=== PATIENT | female | born 1995 | race Caucasian/White ===

== ENCOUNTER 2016-08-26 17:21 | Emergency (ER) | payer MEDICAID ==
[~2016-08-26 17:21] MED LIST: ACET5SOL5 PO; ALBU8I INH; GLUCOMTESTSTRIPS XX; NOVONP2 SQ; NOVORP2 SQ; PNVPAK PO; [UNRECOGNIZED DRUG - CODE] IJ; [UNRECOGNIZED DRUG - CODE] TOP
[2016-08-26 17:23] VITALS: BP 124/71; PULSE 88; RESP 15; TEMP 98.1; O2SAT 97
[2016-08-26] MEDS ORDERED: SODIUM CHLOR 0.9% 1000 ML INJ 1,000 ML IV ONE (19:29)
[2016-08-26] MEDS ORDERED: METOCLOPRAMIDE HCL 10 MG/2 ML VIAL IVP ONE (19:30)
[2016-08-26] MEDS ORDERED: SODIUM CHLORIDE 0.9% FLUSH 5 ML FLUSH IVF PRN (19:30)
[2016-08-26] MEDS ORDERED: diphenhydrAMINE HCL 50 MG/ML VIAL IVP ONE (19:30)
[2016-08-26 19:43] LABS: AUTOMATED NEUTROPHIL # 6.9 TH/MM3 (1.8-7.7); BASOPHIL # 0.1 TH/MM3 (0-0.2); BASOPHIL % 0.6 % (0.0-2.0); EOSINOPHIL % 0.3 % (0.0-4.0); HEMO FLAGS DIFF FINAL; LYMPH % 24.9 % (9.0-44.0); LYMPHOCYTE # 2.5 TH/MM3 (1.0-4.8); MEAN CELL VOLUME 87.2 FL (80.0-100.0); MEAN CORPUSCULAR HEMOGLOBIN 28.9 PG (27.0-34.0); MEAN CORPUSCULAR HGB CONC 33.1 % (32.0-36.0); MONO % 5.1 % (0.0-8.0); NEUT % 69.1 % (16.0-70.0); PLATELET COUNT 255 TH/MM3 (150-450); RED BLOOD COUNT 3.79 MIL/MM3 (4.00-5.30); WHITE BLOOD COUNT 9.9 TH/MM3 (4.0-11.0)
[2016-08-26 19:46] LABS: BACTERIA, URINE RARE /hpf; BLOOD, URINE NEG (NEG); COMMENT (UR) CULTURE INDICATED; CULTURE IF INDICATED CULTURE INDICATED; GLUCOSE,URINE 1000 mg/dL (NEG); HYALINE CAST, URINE 1 /lpf (RARE); KETONE, URINE 150 mg/dL (NEG); MUCUS URINE FEW /lpf (OCC); SQUAMOUS EPITHELIAL CELL URINE 6 /hpf (0-5); URINE COLOR YELLOW (YELLW/STRAW)
[2016-08-26 19:47] LABS: NITRITE,URINE POS (NEG)
--- NOTE | 2016-08-26 19:56 | PD ---
HPI Chief Complaint: Headache Time Seen by Provider: 19:49 Travel History International Travel<30 days: No Contact w/Intl Traveler<30days: No Traveled to known affect area: No History of Present Illness HPI 21-year-old female who is 23 weeks with history of diabetes currently on insulin, presents to the ER today because she states that she is having 3 days history of headaches which started on their own. She has been nauseous, vomiting. She denies any stiff neck, fevers, abdominal pains, urinary symptoms , vaginal discharge, photophobia, or any other symptoms. Modifying Factors: None Associated Signs & Symptoms: Headaches, nausea and vomiting for 3 days Risk Factors: Diabetic, 23 weeks PFSH Past Medical History Arthritis: No Asthma: Yes Blood Disorders: No Anxiety: No Depression: No Heart Rhythm Problems: No Cancer: No High Cholesterol: Yes Chemotherapy: No Chest Pain: No Congestive Heart Failure: No COPD: No Cerebrovascular Accident: No Developmental Delay: No Diabetes: Yes (INSULIN) Diminished Hearing: No Endocrine: Yes Insomnia: Yes Respiratory: Yes (asthma) Immunizations Current: Yes PNEUMOCCOCAL Vaccine (Year): 1 ?: Menopausal: No : 4 Para: 0 Miscarriage: 3 Ovarian Cysts: Yes Past Surgical History Abdominal Surgery: No AICD: No Arteriovenous Shunt: No Cardiac Surgery: No Section: No Ear Surgery: No Endocrine Surgery: No Eye Surgery: No Genitourinary Surgery: No Gynecologic Surgery: No Neurologic Surgery: Yes (PLASTIC SKULL SURGERY) Oral Surgery: No Thoracic Surgery: No Other Surgery: Yes (plastic skull surgery) Social History Alcohol Use: No Tobacco Use: No Substance Use: No Allergies-Medications (Allergen,Severity, Reaction): Coded Allergies: Macrobid (Verified Allergy, Severe, Rash, 08/26/16) Naproxen (Verified Allergy, Severe, Hypotension, 08/26/16) Coconut (Verified Allergy, Intermediate, Rash, 08/26/16) *MDRO Multi-Drug Resistant Organism (Verified Adverse Reaction, Unknown, ) MRSA PCR Screen POSITIVE - 02/24/2015 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 ESBL+E.Coli (urine) - 07/2015 Reported Meds & Prescriptions Reported Meds & Active Scripts Active Icy Hot Advanced Relief P (Menthol (Topical Analgesic)) 7.5 % Pad 1 Pad TOP Q8HR 7 Days Tylenol 325 Mg/10.15 Ml Udc (Acetaminophen) 325 Mg/10 Ml Cup 325 Mg PO Q6H PRN 10 Days Glucagen Diagnostic Kit (Glucagon Hcl (Rdna)) 1 Mg Inj 1 Mg IJ ONCE PRN Pnv Ob+Dha ( Multivitamins) Raul 1 Cap PO DAILY Novolin N (Insulin Isophane (Human)) 1 Ml Inj 10 Units SQ BID@08,17 10 units in AM and 15 units in PM. Novolin R (Insulin Human Regular) 100 Units/Ml Inj 5 Units SQ BID@08,17 Ventolin Hfa (Albuterol Sulfate) 8 Gm Aero 2 Puff INH Q6 PRN * SHAKE WELL BEFORE USE * Glucometer Test Strips (Glucomteststrips) Box 1 Box XX QID Review of Systems Except as stated in HPI: all other systems reviewed are Neg Physical Exam Narrative GENERAL: Well-nourished, well-developed young white female patient in no acute distress. Awake, alert, oriented 3. Sitting in a lighted room without issues. SKIN: Warm and dry. HEAD: Normocephalic. EYES: No scleral icterus. No injection or drainage. NECK: Supple, trachea midline. CARDIOVASCULAR: Regular rate and rhythm without murmurs, gallops, or rubs. RESPIRATORY: Breath sounds equal bilaterally. No accessory muscle use. GASTROINTESTINAL: Abdomen soft, gravid, non-tender, nondistended. MUSCULOSKELETAL: No cyanosis, or edema. BACK: Nontender without obvious deformity. No CVA tenderness. Data Data Last Documented VS Vital Signs Date Time Temp Pulse Resp B/P Pulse Ox O2 Delivery O2 Flow Rate FiO2 08/26/16 17:23 98.1 88 15 124/71 97 Orders Complete Blood Count With Diff (08/26/16 19:29) Comprehensive Metabolic Panel (08/26/16 19:29) Ecg Monitoring (08/26/16 19:29) Iv Access Insert/Monitor (08/26/16 19:29) Oximetry (08/26/16 19:29) Sodium Chloride 0.9% Flush (Ns Flush) (08/26/16 19:30) Diphenhydramine Inj (Benadryl Inj) (08/26/16 19:30) Metoclopramide Inj (Reglan Inj) (08/26/16 19:30) Sodium Chlor 0.9% 1000 Ml Inj (Ns 1000 M (08/26/16 19:29) Urinalysis - C+S If Indicated (08/26/16 19:30) Urine Culture (08/26/16 19:20) Cephalexin (Keflex) (08/26/16 20:00) Insulin Human Regular Inj (Novolin R Inj (08/26/16 20:30) Labs Laboratory Tests Test 08/26/16 19:20 White Blood Count 9.9 TH/MM3 Red Blood Count 3.79 MIL/MM3 Hemoglobin 10.9 GM/DL Hematocrit 33.0 % Mean Corpuscular Volume 87.2 FL Mean Corpuscular Hemoglobin 28.9 PG Mean Corpuscular Hemoglobin 33.1 % Concent Red Cell Distribution Width 13.0 % Platelet Count 255 TH/MM3 Mean Platelet Volume 8.0 FL Neutrophils (%) (Auto) 69.1 % Lymphocytes (%) (Auto) 24.9 % Monocytes (%) (Auto) 5.1 % Eosinophils (%) (Auto) 0.3 % Basophils (%) (Auto) 0.6 % Neutrophils # (Auto) 6.9 TH/MM3 Lymphocytes # (Auto) 2.5 TH/MM3 Monocytes # (Auto) 0.5 TH/MM3 Eosinophils # (Auto) 0.0 TH/MM3 Basophils # (Auto) 0.1 TH/MM3 CBC Comment DIFF FINAL Differential Comment Urine Color YELLOW Urine Turbidity HAZY Urine pH 6.0 Urine Specific [place] 1.029 Urine Protein TRACE mg/dL Urine Glucose (UA) 1000 mg/dL Urine Ketones 150 mg/dL Urine Occult Blood NEG Urine Nitrite POS Urine Bilirubin NEG Urine Urobilinogen LESS THAN 2.0 MG/DL Urine Leukocyte Esterase SMALL Urine RBC 2 /hpf Urine WBC 39 /hpf Urine Squamous Epithelial 6 /hpf Cells Urine Bacteria RARE /hpf Urine Hyaline Casts 1 /lpf Urine Mucus FEW /lpf Microscopic Urinalysis Comment CULTURE INDICATED Sodium Level 135 MEQ/L Potassium Level 4.3 MEQ/L Chloride Level 101 MEQ/L Carbon Dioxide Level 20.2 MEQ/L Anion Gap 14 MEQ/L Blood Urea Nitrogen 5 MG/DL Creatinine 0.45 MG/DL Estimat Glomerular Filtration 173 ML/MIN Rate Random Glucose 320 MG/DL Calcium Level 8.2 MG/DL Total Bilirubin 0.4 MG/DL Aspartate Amino Transf 7 U/L (AST/SGOT) Alanine Aminotransferase 11 U/L (ALT/SGPT) Alkaline Phosphatase 66 U/L Total Protein 7.1 GM/DL Albumin 2.8 GM/DL MDM Medical Decision Making Medical Screen Exam Complete: Yes Emergency Medical Condition: Yes Medical Record Reviewed: Yes Interpretation(s) Laboratory Tests Test 08/26/16 19:20 Red Blood Count 3.79 MIL/MM3 (4.00-5.30) Hemoglobin 10.9 GM/DL (11.6-15.3) Hematocrit 33.0 % (35.0-46.0) Urine Turbidity HAZY (CLEAR) Urine Glucose (UA) 1000 mg/dL (NEG) Urine Ketones 150 mg/dL (NEG) Urine Nitrite POS (NEG) Urine Leukocyte Esterase SMALL (NEG) Urine WBC 39 /hpf (0-5) Urine Bacteria RARE /hpf (NONE) Urine Mucus FEW /lpf (OCC) Sodium Level 135 MEQ/L (136-145) Carbon Dioxide Level 20.2 MEQ/L (21.0-32.0) Blood Urea Nitrogen 5 MG/DL (7-18) Creatinine 0.45 MG/DL (0.50-1.00) Random Glucose 320 MG/DL (74-106) Calcium Level 8.2 MG/DL (8.5-10.1) Aspartate Amino Transf 7 U/L (15-37) (AST/SGOT) Albumin 2.8 GM/DL (3.4-5.0) Differential Diagnosis Headaches, nausea and vomitingsepsis versus UTI versus migraine headaches versus dehydration versus metabolic issues versus hyperemesis gravidarum versus viral syndrome Narrative Course Lab work indicates significant UTI and hyperglycemia. Lab work is otherwise unremarkable for any significant metabolic issues or sepsis. Vital signs are stable in the ER. Patient has no meningeal signs. IV fluids, Reglan, Benadryl was given for her headache in the ER with some improvement symptoms. At this point, my plan would be to treat her UTI and have her follow-up with primary care physician. Return for any worsening in symptoms as necessary. The plan has discussed with her and she states understanding. She will be medically cleared to follow-up with OB ER as well. Diagnosis Primary Impression: UTI (urinary tract infection) Additional Impression: HEADACHE Med/Other Pt SpecificInfo: Prescription(s) given Scripts Metoclopramide (Reglan)10 Mg Tab10 Mg PO TIDAC PRN (NAUSEA OR VOMITING) #15 TAB Ref 0 Prov:Kaye Cobb MD 08/26/16 Cephalexin (Keflex)500 Mg Fgm679 Mg PO Q6H 7 Days Ref 0 Prov:Kaye Cobb MD 08/26/16 Disposition: 01 DISCHARGE HOME Condition: Stable Kaye Cobb MD Aug 26, 2016 19:56
[2016-08-26 20:00] VITALS: BP 111/56; PULSE 83; RESP 16; TEMP 98.7; O2SAT 100
[2016-08-26] MEDS ORDERED: CEPHALEXIN MONOHYDRATE 500 MG CAP PO ONE (20:00)
[2016-08-26 20:12] LABS: ANION GAP 14 MEQ/L (5-15); AST (GOT) 7 U/L (15-37); BICARBONATE 20.2 MEQ/L (21.0-32.0); BLOOD UREA NITROGEN 5 MG/DL (7-18); CHLORIDE 101 MEQ/L (98-107); GLOMERULAR FILTRATION RATE 173 ML/MIN (>89); POTASSIUM 4.3 MEQ/L (3.5-5.1); SODIUM (NA) 135 MEQ/L (136-145)
[2016-08-26 20:16] LABS: ALKALINE PHOSPHATASE 66 U/L (45-117); ALT (GPT) 11 U/L (10-53); TOTAL BILIRUBIN ADULT 0.4 MG/DL (0.2-1.0)
[2016-08-26] MEDS ORDERED: REGL10TA5 PO (20:24)
[2016-08-26] MEDS ORDERED: CEPH-460 PO (20:24)
[2016-08-26] MEDS ORDERED: INSULIN HUMAN REGULAR 1,000 UNITS/10 ML VIAL IV PUSH ONE (20:30)
[2016-08-26 21:06] VITALS: BP 115/77
[2016-12-01] MEDS ORDERED: VENTAER INH (09:59)
[2016-12-01] MEDS ORDERED: PEN31MIS2 (10:20)
[2016-12-01] MEDS ORDERED: NOVORP2 SQ (10:22)
[2016-12-01] MEDS ORDERED: ONETTES4 (10:22)
== END 2016-08-26 21:10 | disposition home or self-care (01) ==
LOC: NEPC 17:21
DX: O23.42 Unspecified infection of urinary tract in pregnancy, second trimester (principal); B96.20 Unspecified Escherichia coli [E. coli] as the cause of diseases classified elsewhere; O24.912 Unspecified diabetes mellitus in pregnancy, second trimester; R51 Headache; Z3A.23 23 weeks gestation of pregnancy; Z79.4 Long term (current) use of insulin
CPT/HCPCS: 80053; 81001; 85025; 87077; 87086; 87186; 96361; 96374; 96375; 99283; J1200; J2765; J7030

== ENCOUNTER → 2016-09-05 | Outpatient (CLI) | payer MEDICAID ==
[~2016-09-05] MED LIST changes: +CEPH-460 PO; +CEPH250C PO; +CEPH500C PO; +CIPR500T2 PO; +FERR325T PO; +GLUC40GE PO; +IBUP-232 PO; +IRON18TA2 PO; +LABE200T2 PO; +LEVEMIR SQ; +NOVOLOGP2 SQ; +ONETTES4; +OXYC1TAB63 PO; +PEN31MIS2; +PREN29TA PO; +REGL10TA5 PO; +SENN1TAB PO; +VENTAER INH
== END ==
LOC: HPND 08:07
PROVIDERS: ATTEND Family Medicine
DX: O24.414 Gestational diabetes mellitus in pregnancy, insulin controlled (principal); Z3A.24 24 weeks gestation of pregnancy
CPT/HCPCS: 76811; 76825; 76827; 93325

== ENCOUNTER → 2016-09-13 | Outpatient (CLI) | payer MEDICAID ==
--- NOTE | 2016-09-13 16:02 | EKG ---
Date Performed: 09/13/2016 Time Performed: 09:34:04 PTAGE: 21 years EKG: Sinus rhythm . Compared to prior tracing no significant change Normal ECG PREVIOUS TRACING : 05/31/2016 14.57 DOCTOR: Danita Dewitt Interpretating Date/Time 09/13/2016 15:57:50
== END ==
LOC: HCAV 09:26
PROVIDERS: ATTEND Family Medicine
DX: O24.119 Pre-existing type 2 diabetes mellitus, in pregnancy, unspecified trimester (principal)
CPT/HCPCS: 93005

== ENCOUNTER → 2016-10-05 | Outpatient (CLI) | payer MEDICAID | LOC: HPND 08:44 | PROVIDERS: ATTEND Family Medicine | DX: O24.113 Pre-existing type 2 diabetes mellitus, in pregnancy, third trimester (principal); O99.513 Diseases of the respiratory system complicating pregnancy, third trimester; J45.40 Moderate persistent asthma, uncomplicated; O26.23 Pregnancy care for patient with recurrent pregnancy loss, third trimester; Z3A.28 28 weeks gestation of pregnancy | CPT/HCPCS: 76816 ==

== ENCOUNTER 2016-10-06 21:20 | Inpatient (IN) | payer MEDICAID ==
[~2016-10-06] VITALS: Ht 157.5 cm; Wt 63.5 kg
[~2016-10-06 21:20] MED LIST changes: -CEPH250C PO; -CEPH500C PO; -CIPR500T2 PO; -FERR325T PO; -GLUC40GE PO; -IBUP-232 PO; -IRON18TA2 PO; -LABE200T2 PO; -LEVEMIR SQ; -NOVOLOGP2 SQ; -ONETTES4; -OXYC1TAB63 PO; -PEN31MIS2; -PREN29TA PO; -SENN1TAB PO; -VENTAER INH
[2016-10-06 22:28] LABS: BLOOD, URINE NEG (NEG); COMMENT (UR) CULTURE INDICATED; CULTURE IF INDICATED CULTURE INDICATED; GLUCOSE,URINE 150 mg/dL (NEG); KETONE, URINE NEG (NEG); MUCUS URINE FEW /lpf (OCC); NITRITE,URINE NEG (NEG); SQUAMOUS EPITHELIAL CELL URINE 71 /hpf (0-5); URINE COLOR YELLOW (YELLW/STRAW)
[2016-10-06] MEDS: cefTRIAXone INJ 1,000 MG in SODIUM CHLORIDE 0.9% INJ 100 ML IV SCH (23:45)
[2016-10-06] MEDS ORDERED: ACETAMINOPHEN 325 MG TAB PO PRN (23:45)
[2016-10-06] MEDS ORDERED: ONDANSETRON HCL 4 MG/2 ML VIAL IV PRN (23:45)
[2016-10-06] MEDS ORDERED: LACTATED RINGER'S 1000 ML INJ 1,000 ML IV ONE (23:45)
[2016-10-06] MEDS ORDERED: SODIUM CHLORIDE 0.9% FLUSH 5 ML FLUSH IVF PRN (23:45)
[2016-10-07] VITALS (14 sets, daily range): BP systolic 98–120; BP diastolic 50–75; PULSE 89–97; RESP 16–20; TEMP 98–98.1
[2016-10-07] MEDS ORDERED: IRON18TA2 PO (00:49)
[2016-10-07 00:53] LABS: BASOPHIL % 0.2 % (0.0-2.0); EOSINOPHIL % 0.3 % (0.0-4.0); HEMATOCRIT 30.8 % (35.0-46.0); HEMO FLAGS DIFF FINAL; LYMPH % 29.5 % (9.0-44.0); LYMPHOCYTE # 2.9 TH/MM3 (1.0-4.8); MEAN CELL VOLUME 83.3 FL (80.0-100.0); MEAN CORPUSCULAR HEMOGLOBIN 28.2 PG (27.0-34.0); MEAN CORPUSCULAR HGB CONC 33.9 % (32.0-36.0); MONO % 8.7 % (0.0-8.0); NEUT % 61.3 % (16.0-70.0); PLATELET COUNT 218 TH/MM3 (150-450); RED CELL DISTRIBUTION WIDTH 13.3 % (11.6-17.2); WHITE BLOOD COUNT 9.8 TH/MM3 (4.0-11.0)
[2016-10-07 01:13] LABS: BICARBONATE 22.1 MEQ/L (21.0-32.0); POTASSIUM 3.5 MEQ/L (3.5-5.1)
--- NOTE | 2016-10-07 04:32 | HHI.HP ---
History & Physical H&P HPI Chief Complaint Abdominal pain Date Seen: Oct 06, 2016 Time Seen: 22:08 Travel History International Travel<30 Days: No Contact w/Intl Traveler<30Days: No Known Affected Area: No History of Present Illness HPI Patient is a 21-year-old who is at 29 weeks today with then due date of December 22, 2016. Patient has type 1 diabetes on insulin therapy and see an OB provider in [place]. Patient states that this pain is similar to her previous urinary tract infections. Patient has had at least 3 urinary tract infections this . Patient states she has excellent movement and denies vaginal bleeding or discharge. Para: 0 : 3 History Past Medical History Narrative Medical Type 1 diabetes Asthma Obstetric History Obstetric History Miscarriages 2 Past Surgical History Narrative Surgical No previous surgeries Family History Family History: Negative Social History Alcohol Use: No Tobacco Use: No Substance Abuse: No Allergies-Medications (Allergen,Severity, Reaction): Coded Allergies: Macrobid (Verified Allergy, Severe, Rash, 08/26/16) Naproxen (Verified Allergy, Severe, Hypotension, 08/26/16) Coconut (Verified Allergy, Intermediate, Rash, 08/26/16) *MDRO Multi-Drug Resistant Organism (Verified Adverse Reaction, Unknown, ) MRSA PCR Screen POSITIVE - 02/24/2015 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 ESBL+E.Coli (urine) - 07/2015 Home Meds Active Scripts Metoclopramide (Reglan)10 Mg Tab10 Mg PO TIDAC PRN (NAUSEA OR VOMITING) #15 TAB Ref 0 Prov:Kaye Cobb MD 08/26/16 Cephalexin (Keflex)500 Mg Iev600 Mg PO Q6H 7 Days Ref 0 Prov:Kaye Cobb MD 08/26/16 Menthol (Topical Analgesic) (Icy Hot Advanced Relief P)7.5 % Pad1 Pad TOP Q8HR 7 Days Prov:Jamal Avalos MD 05/31/16 Acetaminophen (Tylenol 325 Mg/10.15 Ml Udc)325 Mg/10 Ml Qxq995 Mg PO Q6H PRN ( PAIN SCALE 1 TO 10) 10 Days Prov:Jamal Avalos MD 05/31/16 Glucagon (Glucagen Diagnostic)1 Mg Inj1 Mg IJ ONCE PRN (hypoglycemia) #1 INJ Ref 0 Prov:Stacey Main MD R2 05/06/16 W/O Vit A W/ Fe Carbo (Pnv Ob+Dha) Pak1 Cap PO DAILY #30 MARCOS Ref 9 Prov:Stacey Main MD R2 05/06/16 Insulin Isophane (Human) (Novolin N)1 Ml Inj10 Units SQ BID@ #1 INJECTION 10 units in AM and 15 units in PM. Prov:Stacey Main MD R2 05/06/16 Insulin Human Regular (Novolin R)100 Units/Ml Inj5 Units SQ BID@ #1 INJECTION Prov:Stacey Main MD R2 05/06/16 Albuterol Sulfate 8 GM Inhaler (Ventolin Hfa)8 Gm Aero2 Puff INH Q6 PRN ( WHEEZING) #1 BOX * SHAKE WELL BEFORE USE * Prov:Carlota Hagen MD 12/28/15 Glucometer Test Strips Box #1 BOX XX QID Ref 1 Prov:Fay Lozano MD 11/23/15 Review of Systems Except as stated in HPI: all other systems reviewed are Neg Physical Exam Narrative GENERAL: Well-nourished, well-developed patient. SKIN: Warm and dry. HEAD: Normocephalic and atraumatic. EYES: No scleral icterus. No injection or drainage. ENT: No nasal drainage noted. Mucous membranes pink. Airway patent. NECK: Supple, trachea midline. No JVD. CARDIOVASCULAR: Regular rate and rhythm without murmurs, gallops, or rubs. RESPIRATORY: Breath sounds equal bilaterally. No accessory muscle use. BREASTS: Bilateral exam showed no masses , no retractions, no nipple discharge. ABDOMEN/GI: Abdomen soft, non-tender, bowel sounds present, no rebound, no guarding Gravid to [-28] weeks size Fundal Height: [-] GENITOURINARY: External Genitalia: intact and normal in appearance BUS glands: [Normal-] Cervix: [-] Visually closed Dilatation: [-] Effacement: [-] Station: [-] Presentation: [-] Membranes: [intact or ruptured] Uterine Contractions: [-] Irritability Speculum examination was performed. Cervix is visually closed fibronectin was collected FHT's: Category: [-1] Baseline: [-145] Reactive: Reactive Variability: Moderate Decels: Absent EXTREMITIES: No cyanosis or edema. BACK: Nontender without obvious deformity. No CVA tenderness. NEUROLOGICAL: Awake and alert. Motor and sensory grossly within normal limits. Five out of 5 muscle strength in all muscle groups. Normal speech. Data Data Orders Vital Signs (Adult) .ON ADMISSION (10/06/16 21:56) ^ Labor Status (10/06/16 21:56) Urinalysis - C+S If Indicated (10/06/16 21:56) Labs Laboratory Tests Test 10/06/16 10/06/16 21:20 22:10 Urine Color YELLOW Urine Turbidity CLOUDY Urine pH 8.0 Urine Specific [place] 1.020 Urine Protein 30 mg/dL Urine Glucose (UA) 150 mg/dL Urine Ketones NEG mg/dL Urine Occult Blood NEG Urine Nitrite NEG Urine Bilirubin NEG Urine Urobilinogen LESS THAN 2.0 MG/DL Urine Leukocyte Esterase LARGE Urine WBC 59 /hpf Urine Squamous Epithelial 71 /hpf Cells Urine Mucus FEW /lpf Microscopic Urinalysis Comment CULTURE INDICATED Fibronectin POSITIVE MDM Plan Patient is a at 29 weeks gestation with some uterine irritability type 1 diabetes, cystitis, and a positive fibronectin. Recommend 23 hour observation with oral antibiotics Patient has a closed cervix at this time, do not think betamethasone is necessary, however will observe closely for symptoms of labor Diagnosis Diagnosis: Primary Impression: Type 1 diabetes mellitus Additional Impressions: Positive fibronectin at 22 weeks to 34 weeks gestation Acute cystitis during in third trimester Kim Whiteside MD Oct 07, 2016 04:32
[2016-10-07] MEDS: INSULIN HUMAN REGULAR 1,000 UNITS/10 ML VIAL SQ SCH ×2 (08:21→18:43)
[2016-10-07] MEDS: INSULIN HUMAN NPH/R 70/30 1,000 UNITS/10 ML VIAL SQ SCH (08:22)
--- NOTE | 2016-10-07 08:34 | HHI.PR ---
Subjective Remarks 21 year old at 29 weeks gestation reported with nausea/vomiting, lower abdominal pain, found to have likely UTI with urine culture pending. She is being treated with Rocephin. She has a history of three prior urinary tract infections in this . She also has a history of poorly controlled type 1 diabetes. Her insulin regimen includes Novolin 7/30 20 units plus Novolin R 10 units in the morning, followed by Novolin 70/30 15 units plus Novolin R 10 units in the evening. Blood glucose at 3 AM was 190, repeat fasting glucose this morning is pending. She presented with hypoglycemia, with glucose of 47. She also has a history of positive FFN. She has good movement, no vaginal bleeding, no loss of fluids, irregular contractions. Objective Vital Signs Date Time Temp Pulse Resp B/P Pulse Ox O2 Delivery O2 Flow Rate FiO2 10/07/16 06:00 18 10/07/16 05:00 18 10/07/16 04:00 18 10/07/16 03:00 18 10/07/16 02:00 18 10/07/16 01:00 18 Result Diagram: 10/07/16 0000 10/07/16 0038 Objective Remarks GENERAL: No distress SKIN: NOrmal HEAD: Normocephalic and atraumatic. EYES: No scleral icterus. No injection or drainage. ENT: No nasal drainage noted. Mucous membranes pink. Airway patent. NECK: Supple, trachea midline. No JVD. CARDIOVASCULAR: Regular rate and rhythm without murmurs, gallops, or rubs. RESPIRATORY: Breath sounds equal bilaterally. No accessory muscle use. ABDOMEN/GI: Abdomen soft, non-tender, bowel sounds present, no rebound, no guarding Gravid to 29 weeks size Speculum examination was performed yesterday. Cervix is visually closed. FHT's: Category: 1 Baseline: 130's Reactive: Reactive Variability: Moderate Decels: Absent EXTREMITIES: No cyanosis or edema. BACK: Nontender without obvious deformity. No CVA tenderness. NEUROLOGICAL: Awake and alert. Assessment and Plan Problem List: (1) Recurrent urinary tract infection affecting Status: Acute Plan: - Continue Rocephin IV - Follow urine culture - Will likely need maintenance antibiotics for duration of (2) Positive fibronectin at 22 weeks to 34 weeks gestation Status: Acute Plan: Category one strip, cervix closed on speculum exam, no contractions on monitor. High risk for pre-term labor. - Monitor closely - Labor precautions (3) Type 1 diabetes Status: Acute Plan: Labile blood glucoses. - Continue current regimen, adjust as needed. - Monitor blood glucose qAM and 2 hours post prandial. - Counseling on diabetes management. Collaborating MD Comments Type 1 diabetes, poorly controlled. Patient did not take her insulin last pm, hyperglycemia this am On Rocephin as she is unable to take Macrobid and has experienced 3 prior UTI's this +FFN, no signs of labor, patient did not receive steroids Attestation Patien seen and management discussed Deon Sinha MD R2 Oct 07, 2016 08:34 Kim Whiteside MD Oct 07, 2016 09:28
[2016-10-07] MEDS: MULTIVIT/MIN/PREN/FOL AC/IRON PRENATAL TAB PO SCH (08:36)
[2016-10-07] MEDS: SODIUM CHLORIDE 0.9% FLUSH 5 ML FLUSH IVF SCH ×2 (09:00→21:00)
[2016-10-07] MEDS: INSULIN NovoLIN REGULAR SUPPLEMENTAL SCALE SQ SCH ×3 (14:06→18:51)
[2016-10-07] MEDS ORDERED: INSULIN HUMAN NPH/R 70/30 1,000 UNITS/10 ML VIAL SQ SCH (17:00)
[2016-10-07] MEDS: cefTRIAXone INJ 1,000 MG in SODIUM CHLORIDE 0.9% INJ 100 ML IV SCH (23:26)
[2016-10-08 00:10] VITALS: BP 105/64; PULSE 87
[2016-10-08] MEDS ORDERED: LIDOCAINE HCL 1% 50 ML VIAL ONE (00:24)
[2016-10-08 01:00] VITALS: RESP 18; TEMP 98.7
[2016-10-08 02:07] LABS: AUTOMATED NEUTROPHIL # 5.9 TH/MM3 (1.8-7.7); BASOPHIL # 0.1 TH/MM3 (0-0.2); BASOPHIL % 0.6 % (0.0-2.0); EOSINOPHIL # 0.1 TH/MM3 (0-0.4); EOSINOPHIL % 0.6 % (0.0-4.0); HEMATOCRIT 29.2 % (35.0-46.0); HEMO FLAGS DIFF FINAL; LYMPH % 33.4 % (9.0-44.0); LYMPHOCYTE # 3.4 TH/MM3 (1.0-4.8); MEAN CELL VOLUME 83.5 FL (80.0-100.0); MEAN CORPUSCULAR HEMOGLOBIN 27.9 PG (27.0-34.0); MEAN CORPUSCULAR HGB CONC 33.5 % (32.0-36.0); MONO % 7.6 % (0.0-8.0); NEUT % 57.8 % (16.0-70.0); PLATELET COUNT 237 TH/MM3 (150-450); RED BLOOD COUNT 3.49 MIL/MM3 (4.00-5.30); RED CELL DISTRIBUTION WIDTH 13.5 % (11.6-17.2); WHITE BLOOD COUNT 10.1 TH/MM3 (4.0-11.0)
[2016-10-08 04:25] LABS: RUBELLA IGG ANTIBODY 5.6 IU/mL (10.0-500.0); RUBELLA STATUS INDETERMINATE (IMMUNE)
[2016-10-08 08:22] LABS: AMPHETAMINE, URINE NEG (NEG); BARBITURATES, URINE NEG (NEG); COCAINE, URINE NEG (NEG)
[2016-10-08] MEDS: SODIUM CHLORIDE 0.9% FLUSH 5 ML FLUSH IVF SCH ×2 (08:30→21:00)
[2016-10-08] MEDS: MULTIVIT/MIN/PREN/FOL AC/IRON PRENATAL TAB PO SCH (08:30)
[2016-10-08] MEDS: INSULIN HUMAN NPH/R 70/30 1,000 UNITS/10 ML VIAL SQ SCH (08:31)
[2016-10-08] MEDS: INSULIN HUMAN REGULAR 1,000 UNITS/10 ML VIAL SQ SCH ×2 (08:31→17:27)
[2016-10-08] MEDS: INSULIN NovoLIN REGULAR SUPPLEMENTAL SCALE SQ SCH ×3 (08:32→17:27)
[2016-10-08 10:12] LABS: HEMOGLOBIN A1a 1.1 %; HEMOGLOBIN A1b 1.2 %; HEMOGLOBIN Ao 81.6 %; HEMOGLOBIN F 1.3 %
[2016-10-08 11:08] LABS: MRSA PCR NEGATIVE (NEGATIVE); STAPH AUREUS PCR NEGATIVE (NEGATIVE)
[2016-10-08] MEDS: FERROUS SULFATE 325 MG (65 MG ELEMENTAL IRON) TAB PO SCH ×2 (11:10→21:00)
--- NOTE | 2016-10-08 11:10 | PD.OB.ANTE ---
Subjective Diagnosis: (1) Type 1 diabetes mellitus Diagnosis: Principal (2) Intrauterine Diagnosis: Principal Interval History Mrs. Washington has (Jamil Rasmussen MD R2) Objective Vital Signs Vital Signs Date Time Temp Pulse Resp B/P Pulse Ox O2 Delivery O2 Flow Rate FiO2 10/08/16 01:00 98.7 18 10/08/16 00:10 87 105/64 10/07/16 20:50 98.1 16 10/07/16 20:13 96 108/68 10/07/16 16:17 91 98/50 10/07/16 16:15 98.0 10/07/16 13:04 98.1 18 10/07/16 13:01 97 120/75 Lab & Micro Results Test 10/07/16 10/08/16 10/08/16 21:20 00:00 00:45 Urine Opiates Screen NEG Urine Barbiturates Screen NEG Urine Amphetamines Screen NEG Urine Benzodiazepines Screen NEG Urine Cocaine Screen NEG Urine Cannabinoids Screen NEG Blood Type A POSITIVE Antibody Screen NEGATIVE White Blood Count 10.1 TH/MM3 Red Blood Count 3.49 MIL/MM3 Hemoglobin 9.8 GM/DL Hematocrit 29.2 % Mean Corpuscular Volume 83.5 FL Mean Corpuscular Hemoglobin 27.9 PG Mean Corpuscular Hemoglobin 33.5 % Concent Red Cell Distribution Width 13.5 % Platelet Count 237 TH/MM3 Mean Platelet Volume 8.3 FL Neutrophils (%) (Auto) 57.8 % Lymphocytes (%) (Auto) 33.4 % Monocytes (%) (Auto) 7.6 % Eosinophils (%) (Auto) 0.6 % Basophils (%) (Auto) 0.6 % Neutrophils # (Auto) 5.9 TH/MM3 Lymphocytes # (Auto) 3.4 TH/MM3 Monocytes # (Auto) 0.8 TH/MM3 Eosinophils # (Auto) 0.1 TH/MM3 Basophils # (Auto) 0.1 TH/MM3 CBC Comment DIFF FINAL Differential Comment Rubella Immunity Screen INDETERMINATE Rubella Antibody, Quantitative 5.6 IU/mL Date/Time Procedure Status Source Growth 10/06/16 21:20 Urine Culture - Preliminary Resulted Urine Clean Catch IMMATURE GROWTH - REINCUBATE Physical Exam BP 114/63, HR 81, afebrile, 18 respirations/minute GENERAL: No distress SKIN: Pallor, no rashes HEAD: Normocephalic and atraumatic. EYES: No scleral icterus. No injection or drainage. ENT: No nasal drainage noted. Mucous membranes pink. CARDIOVASCULAR: Regular rate and rhythm without murmurs RESPIRATORY: Clear to auscultation bilaterally; normal rate ABDOMEN/GI: Abdomen soft, non-tender, bowel sounds present, no rebound, no guarding Gravid to ~29 weeks size EXTREMITIES: No cyanosis or edema. NEUROLOGICAL: Awake and alert. FHT's: Category: 1 Baseline: 145 Reactive: Reactive Variability: Moderate Decels: Absent (Jamil Rasmussen MD R2) Assessment and Plan Problem List: (1) Status: Acute (2) Type 1 diabetes Status: Acute Assessment & Plan: Impression: Labile blood glucoses during hospitalization -Will plan to increase morning regimen from 20 (70/30 Insulin)/10 (Reg) ----> 26 (70/30 Insulin)/15 (Reg) -Will plan to increase evening regimen from 15 (70/30 Insulin)/10 (Reg) ----> 22 (70/30 Insulin)/10 (Reg) -Continue current sliding scale and frequent monitoring - Counseling on diabetes management -We'll plan to consult internal medicine for assistance in managing tomorrow Discussed with Dr. Pitts (3) Recurrent urinary tract infection affecting Status: Resolved Assessment & Plan: Impression: 3 prior UTIs this . Unable to tolerate Macrobid - Follow urine culture (Immature, re-incubating as of 10/08) - Continue Rocephin IV (4) Positive fibronectin at 22 weeks to 34 weeks gestation Status: Acute Assessment & Plan: Impression: Category one strip, cervix closed on speculum exam, no contractions on monitor. High risk for pre-term labor. -Continue to monitor (Jamil Rasmussen MD R2) Assessment and Plan Patient seen and evaluated with resident under direct supervision, agree with assessment and plan. (Jamal Pitts MD) Jamil Rasmussen MD R2 Oct 08, 2016 11:10 Jamal Pitts MD Oct 14, 2016 12:04
[2016-10-08] MEDS ORDERED: INSULIN HUMAN NPH/R 70/30 1,000 UNITS/10 ML VIAL SQ SCH (17:00)
[2016-10-08] MEDS ORDERED: INSULIN ASPAR PROT 70/30 1,000 UNITS/10 ML VIAL SQ ONE (18:30)
[2016-10-08] MEDS ORDERED: SODIUM CHLORIDE 0.9% FLUSH 5 ML FLUSH IVF PRN (20:45)
--- NOTE | 2016-10-09 07:21 | PD.OB.ANTE ---
Subjective Diagnosis: (1) (2) Type 1 diabetes (3) Recurrent urinary tract infection affecting (4) Positive fibronectin at 22 weeks to 34 weeks gestation Interval History 29 wk IUP Type 1 DM with brittle BS control BS 3am- 51&57 given food , now FBS 187 she is to get 30 u 70/30 and 15 u R this am after breakfast , will check BS at 11 am evening dose is currently 22 u 70/30 and 10u R . baby is active , NST reactive no CTXs plan dietary consult and int medicine consult today she needs to see ANUP Murillo when they are here Antepartum ROS: Reports: Vaginal bleeding Objective Lab & Micro Results Test 10/08/16 08:30 Nasal Screen MRSA (PCR) NEGATIVE Staphylococcus aureus NEGATIVE (PCR)(LAB) Date/Time Procedure Status Source Growth 10/06/16 21:20 Urine Culture - Final Complete Urine Clean Catch 10-50,000 CFU/ML MIXED WALDO... Physical Exam GENERAL: Well-nourished, well-developed patient. CARDIOVASCULAR: Regular rate and rhythm without murmurs, gallops, or rubs. RESPIRATORY: Breath sounds equal bilaterally. No accessory muscle use. ABDOMEN/GI: Abdomen soft, non-tender. Fundus: [-] GENITOURINARY: External Genitalia: intact and normal in appearance Cervix: [-] Dilatation: [-] Effacement: [-] Station: [-] Presentation: [-] Membranes: [-] Uterine Contractions: [-] FHT's: Category: [-] Baseline: [-] Reactive: [-] Variability: [-] Decels: [-] EXTREMITIES: No cyanosis or edema, non-tender, without signs of DVT. Assessment and Plan Problem List: (1) Status: Acute (2) Type 1 diabetes Status: Acute Assessment & Plan: Impression: Labile blood glucoses during hospitalization -Will plan to increase morning regimen from 20 (70/30 Insulin)/10 (Reg) ----> 26 (70/30 Insulin)/15 (Reg) -Will plan to increase evening regimen from 15 (70/30 Insulin)/10 (Reg) ----> 22 (70/30 Insulin)/10 (Reg) -Continue current sliding scale and frequent monitoring - Counseling on diabetes management -We'll plan to consult internal medicine for assistance in managing tomorrow Discussed with Dr. Pitts (3) Recurrent urinary tract infection affecting Status: Acute Assessment & Plan: Impression: 3 prior UTIs this . Unable to tolerate Macrobid - Follow urine culture (Immature, re-incubating as of 10/08) - Continue Rocephin IV (4) Positive fibronectin at 22 weeks to 34 weeks gestation Status: Acute Assessment & Plan: Impression: Category one strip, cervix closed on speculum exam, no contractions on monitor. High risk for pre-term labor. -Continue to monitor Cecilio Willett II, MD Oct 09, 2016 07:21
[2016-10-09] MEDS ORDERED: INSULIN HUMAN REGULAR 1,000 UNITS/10 ML VIAL SQ SCH (08:00)
[2016-10-09] MEDS ORDERED: INSULIN HUMAN NPH/R 70/30 1,000 UNITS/10 ML VIAL SQ SCH ×2 (08:00→17:00)
[2016-10-09] MEDS ORDERED: DOCUSATE SODIUM 50 MG/SENNA 8.6 MG TAB PO PRN (09:00)
[2016-10-09] MEDS: INSULIN ASPAR PROT 70/30 1,000 UNITS/10 ML VIAL SQ SCH (09:00)
[2016-10-09 09:31] LABS: RAPID PLASMA REAGIN SCREEN NON-REACTIVE (NON-REACTVE)
[2016-10-09] MEDS: SODIUM CHLORIDE 0.9% FLUSH 5 ML FLUSH IVF SCH ×2 (09:44→20:53)
[2016-10-09] MEDS: FERROUS SULFATE 325 MG (65 MG ELEMENTAL IRON) TAB PO SCH ×2 (09:44→22:59)
[2016-10-09] MEDS: MULTIVIT/MIN/PREN/FOL AC/IRON PRENATAL TAB PO SCH (09:44)
[2016-10-09] MEDS: INSULIN NovoLIN REGULAR SUPPLEMENTAL SCALE SQ SCH ×4 (11:41→23:00)
--- NOTE | 2016-10-09 12:03 | HHI.FPPN ---
Deon Sinha MD R2 Oct 09, 2016 12:03
--- NOTE | 2016-10-09 15:10 | PD.CONS ---
[facility] Request[facility] By Reason for Consult diabetes Primary Care Physician No Primary Care Physician Diagnoses: History of Present Illness Patient is a 21-year-old who is at 29 weeks due date of December 22, 2016. Patient was admitted for UTI. [facility] consulted for diabetes management. patient stated that before being admitted she was taking Novolin 70/30 20 units and 15 units in AM with regular insulin BID. Patient had episodes of early hypoglycemia while hospitalized. Patient stated she has this problem at home where her sugars were as low as 20. Patient has no complaints. Denied any N/V or abdominal pain. Review of Systems Constitutional: DENIES: Diaphoretic episodes, Fatigue, Fever, Weight gain, Weight loss, Chills, Dizziness, Change in appetite, Night Sweats Endocrine: DENIES: Abnorml menstrual pattern, Heat/cold intolerance, Polydipsia , Polyuria, Polyphagia Eyes: DENIES: Blurred vision, Diplopia, Eye inflammation, Eye pain, Vision loss , Photosensitivity, Double Vision Ears, nose, mouth, throat: DENIES: Tinnitus, Hearing loss, Vertigo, Nasal discharge, Oral lesions, Throat pain, Hoarseness, Ear Pain, Running Nose, Epistaxis, Sinus Pain, Toothache, Odynophagia Respiratory: DENIES: Apneas, Cough, Snoring, Wheezing, Hemoptysis, Sputum production, Shortness of breath Cardiovascular: DENIES: Chest pain, Palpitations, Syncope, Dyspnea on Exertion , PND, Lower Extremity Edema, Orthopnea, Claudication Gastrointestinal: DENIES: Abdominal pain, Black stools, Bloody stools, Constipation, Diarrhea, Nausea, Vomiting, Difficulty Swallowing, Anorexia Genitourinary: DENIES: Abnormal vaginal bleeding, Dysmenorrhea, Dyspareunia, Sexual dysfunction, Urinary frequency, Urinary incontinence, Urgency, Hematuria , Dysuria, Nocturia, Vaginal discharge Musculoskeletal: DENIES: Joint pain, Muscle aches, Stiffness, Joint Swelling, Back pain, Neck pain Integumentary: DENIES: Abnormal pigmentation, Pruritus, Rash, Nail changes, Breast masses, Breast skin changes, Nipple discharge Hematologic/lymphatic: DENIES: Bruising, Lymphadenopathy Immunologic/allergic: DENIES: Eczema, Urticaria Neurologic: DENIES: Abnormal gait, Headache, Localized weakness, Paresthesias, Seizures, Speech Problems, Tremor, Poor Balance Psychiatric: DENIES: Anxiety, Confusion, Mood changes, Depression, Hallucinations, Agitation, Suicidal Ideation, Homicidal Ideation, Delusions Past Family Social History Allergies: Coded Allergies: Macrobid (Verified Allergy, Severe, Rash, 10/07/16) Naproxen (Verified Allergy, Severe, Hypotension, 08/26/16) Coconut (Verified Allergy, Intermediate, Rash, 08/26/16) *MDRO Multi-Drug Resistant Organism (Verified Adverse Reaction, Unknown, ) MRSA PCR Screen POSITIVE - 02/24/2015 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 Novolin R (Insulin Human Regular) 100 Units/Ml Inj 5 Units SQ BID@,17 Ventolin Hfa (Albuterol Sulfate) 8 Gm Aero 2 Puff INH Q6 PRN * SHAKE WELL BEFORE USE * Glucometer Test Strips (Glucomteststrips) Box 1 Box XX QID Reported Iron (Ferrous Fumarate) 18 Mg Tab 18 Mg PO DAILY Active Ordered Medications Current Medications Acetaminophen (Tylenol) 650 mg Q4H PRN PO PAIN SCALE 1 TO 5; Start 10/06/16 at 23:45 Prenat Multivit/ [place]/Iron/Folic Ac (Stuartnatal Plus 3 ) 1 tab DAILY PO Last administered on 10/09/16 09:44; Start 10/07/16 at 09:00 IV Flush (NS Flush) 2 ml BID IVF Last administered on 10/08/16 08:30; Start at 09:00; Stop 10/08/16 at 20:44; Status DC IV Flush (NS Flush) 2 ml UNSCH PRN IVF FLUSH AFTER USING IV ACCESS; Start 10/06 at 23:45; Stop 10/08/16 at 20:44; Status DC Ondansetron HCl 4 mg 4 mg Q6H PRN IV NAUSEA; Start 10/06/16 at 23:45 Ceftriaxone Sodium/Sodium Chloride (Rocephin Inj/NS Inj) 100 ml @ 200 mls/hr Q24H IV Last administered on 10/07/16 23:26; Start 10/06/16 at 23:45; Stop at 06:52; Status DC Insulin Human Regular (NovoLIN R INJ) 10 units DAILY@08 SQ Last administered on 10/08/16 08:31; Start 10/07/16 at 08:00; Stop 10/08/16 at 09:31; Status DC Insulin Human Isoph/Insulin Regular (NovoLIN 70/30 INJ) 20 units DAILY@08 SQ Last administered on 10/08/16 08:31; Start 10/07/16 at 08:00; Stop 10/08/16 at 09:31; Status DC Insulin Human Isoph/Insulin Regular (NovoLIN 70/30 INJ) 15 units DAILY@17 SQ Last administered on 10/07/16 18:45; Start 10/07/16 at 17:00; Stop 10/08/16 at 09:31; Status DC Insulin Human Regular 10 units 10 units DAILY@17 SQ Last administered on 17:27; Start 10/07/16 at 17:00; Stop 10/09/16 at 11:18; Status DC Lactated Ringer's (Lr 1000 ml Inj) 1,000 ml @ 500 mls/hr BOLUS ONCE IV Last administered on 10/06/16 23:45; Start 10/06/16 at 23:45; Stop 10/07/16 at 01:44 ; Status DC Insulin Human Regular (NovoLIN R SUPPLEMENTAL SCALE) 1 TIDAC SQ Last administered on 10/09/16 14:34; Start 10/07/16 at 17:00 Lidocaine HCl (Xylocaine 1% Inj (50 ml)) 50 ml STK-MED ONCE .ROUTE Last administered on 10/08/16 00:24; Start 10/08/16 at 00:24; Stop 10/08/16 at 00:25 ; Status DC Ferrous Sulfate (Ferrous Sulfate) 325 mg BID PO Last administered on 10/09/16 09:44; Start 10/08/16 at 09:00 Insulin Human Isoph/Insulin Regular (NovoLIN 70/30 INJ) 26 units DAILY@08 SQ ; Start 10/09/16 at 08:00; Stop 10/09/16 at 08:00; Status DC Insulin Human Isoph/Insulin Regular (NovoLIN 70/30 INJ) 22 units DAILY@17 SQ Last administered on 10/08/16 17:28; Start 10/08/16 at 17:00 Insulin Human Regular (NovoLIN R INJ) 15 units DAILY@08 SQ Last administered on 10/09/16 09:01; Start 10/09/16 at 08:00; Stop 10/09/16 at 11:18; Status DC Insulin Aspart Prota 70%/Aspart 30% (NovoLOG MIX 70/ 30 INJ) 5 units ONCE ONCE SQ ; Start 10/08/16 at 18:30; Stop 10/08/16 at 18:32; Status DC Fentanyl Citrate (fentaNYL INJ) 100 mcg STK-MED ONCE .ROUTE Last administered on 10/08/16 20:39; Start 10/08/16 at 20:39; Stop 10/08/16 at 20:40; Status DC IV Flush (NS Flush) 2 ml BID IVF Last administered on 10/09/16 09:44; Start at 21:00 IV Flush (NS Flush) 2 ml UNSCH PRN IVF FLUSH AFTER USING IV ACCESS; Start 10/08 at 20:45 Fentanyl Citrate (fentaNYL INJ) 50 mcg Q3H PRN IV PAIN 1-10; Start 10/08/16 at 20:45 Hydroxyzine Pamoate (Vistaril) 100 mg HS PO Last administered on 10/08/16 22: 11; Start 10/08/16 at 22:11 Insulin Aspart Prota 70%/Aspart 30% (NovoLOG MIX 70/ 30 INJ) 30 units DAILY@08 SQ Last administered on 10/09/16 09:00; Start 10/09/16 at 08:00 Senna/Docusate Sodium (Preeti-Colace) 2 tab BID PRN PO CONSTIPATION; Start at 09:00 Family History noncontributory Social History Denied any alcohol, tobacco or illicit drug use. Physical Exam Vital Signs Vital Signs Date Time Temp Pulse Resp B/P Pulse Ox O2 Delivery O2 Flow Rate FiO2 10/08/16 01:00 98.7 18 10/08/16 00:10 87 105/64 Physical Exam GENERAL: This is a well-nourished, well-developed patient, in no apparent distress. SKIN: No rashes, ecchymoses or lesions. Cool and dry. HEAD: Atraumatic. Normocephalic. No temporal or scalp tenderness. EYES: Pupils equal round and reactive. Extraocular motions intact. No scleral icterus. No injection or drainage. ENT: Nose without bleeding, purulent drainage or septal hematoma. Throat without erythema, tonsillar hypertrophy or exudate. Uvula midline. Airway patent. NECK: Trachea midline. No JVD or lymphadenopathy. Supple, nontender, no meningeal signs. CARDIOVASCULAR: Regular rate and rhythm without murmurs, gallops, or rubs. RESPIRATORY: Clear to auscultation. Breath sounds equal bilaterally. No wheezes , rales, or rhonchi. GASTROINTESTINAL: gravid. Abdomen soft, non-tender, nondistended. No hepato- splenomegaly, or palpable masses. No guarding. MUSCULOSKELETAL: Extremities without clubbing, cyanosis, or edema. No joint tenderness, effusion, or edema noted. No calf tenderness. Negative Homans sign bilaterally. NEUROLOGICAL: Awake and alert. Cranial nerves II through XII intact. Motor and sensory grossly within normal limits. Five out of 5 muscle strength in all muscle groups. Normal speech. Laboratory Date/Time Procedure Status Source Growth 10/06/16 21:20 Urine Culture - Final Complete Urine Clean Catch 10-50,000 CFU/ML MIXED WALDO... Result Diagram: 10/08/16 0045 10/07/16 0038 Assessment and Plan Assessment and Plan 21-year-old who is at 29 weeks due date of December 22, 2016 who admitted for UTI. Uncontrolled T1DM -patient had episodes of hypoglycemia mostly very claim specialist. -Primary team increased novolin AM today so will continue with that dose. Since she has claim specialist hypoglycemia will decrease her night dose from 22 to 17 units. continues with SSI. UTI -on rocephin per primary team pending cultures -being managed by OB. Code Status full Discussed Condition With patient and her Fay Lozano MD Oct 09, 2016 15:10
[2016-10-10] MEDS: INSULIN NovoLIN REGULAR SUPPLEMENTAL SCALE SQ SCH ×3 (02:17→13:57)
[2016-10-10] MEDS: INSULIN ASPAR PROT 70/30 1,000 UNITS/10 ML VIAL SQ SCH (08:00)
--- NOTE | 2016-10-10 08:49 | PD.OB.ANTE ---
Subjective Diagnosis: (1) Diagnosis: Principal (2) Type 1 diabetes Diagnosis: Principal (3) Positive fibronectin at 22 weeks to 34 weeks gestation Diagnosis: Secondary Interval History Patient is a at 29 and 4/7 weeks today, EDC 12/22/16. She has type 1 diabetes, poorly controlled. Over last 24 hours, patient has required a total 67 units of insulin as follows: Morning requirement 40 units total comprised of 30 units of 70/30 and 10 units of regular insulin. Afternoon requirements were 27 units total, comprised of 17 units of 70/30 and 10 units of regular. She continues to have poor routine with meals and snacks, she is currently scheduled for 3 meals and 3-4 snacks between meals. However, fasting glucose this morning was 99. No hypoglycemic episodes reported and patient describes no hypoglycemic symptoms. She was initially admitted for possible UTI, however, urine culture was nondiagnostic. We are currently checking her blood sugars as follows: Fasting, before meals, 2 hours postprandial, 2 AM Antepartum ROS: Reports: movement normal, Denies: New complaints, Loss of fluid, Vaginal bleeding, Contractions ( Debby Griffiths MD R1) Objective Vital Signs Patient was afebrile, vital signs stable Lab & Micro Results Date/Time Procedure Status Source Growth 10/06/16 21:20 Urine Culture - Final Complete Urine Clean Catch 10-50,000 CFU/ML MIXED WALDO... Physical Exam GENERAL: Well-nourished, well-developed patient. CARDIOVASCULAR: Regular rate and rhythm without murmurs, gallops, or rubs. RESPIRATORY: Breath sounds equal bilaterally. No accessory muscle use. ABDOMEN/GI: Abdomen soft, non-tender. GENITOURINARY: Deferred EXTREMITIES: No cyanosis or edema, non-tender, without signs of DVT. (Debby Griffiths MD R1) Assessment and Plan Problem List: (1) Status: Acute (2) Type 1 diabetes Status: Acute Assessment & Plan: Impression: Labile blood glucoses during hospitalization, improved today. She continues to have irregular mealtimes. Plan: -Internal medicine consult placed yesterday, patient AM dose of 70/30 Insulin was decreased from 22 to 17 units -Continue bedside glucose checks at fasting, before meals, 2 hour postprandial, 2 AM -Continue morning regimen as follows: 30 units (70/30 Insulin) at 8 AM with sliding scale as needed -Continue afternoon regimen as follows: 17 units (70/30 Insulin) at 5 PM with sliding scale as needed -Continue current sliding scale and frequent monitoring -Counseling on diabetes management - consult placed yesterday, patient was seen -Patient possibly may be discharged today if blood sugars controlled and diet remains consistent -She needs a PCP/HEALTH PHYSICS TECHNICIAN who can regularly follow her blood sugars and diet -She needs to follow up with MFM for BPP twice weekly, monitoring AFIs Discussed with Dr. Parsons (3) Recurrent urinary tract infection affecting Status: Resolved Assessment & Plan: Impression: 3 prior UTIs this . Urine culture collected this is total stay was negative for UTI, showing less than 50,000 colony-forming units. Rocephin was discontinued yesterday. (4) Positive fibronectin at 22 weeks to 34 weeks gestation Status: Acute Assessment & Plan: Impression: Category 1 strip, cervix closed on speculum exam on 10/08/16, no contractions on monitor. High risk for pre-term labor. -Continue to monitor (Debby Griffiths MD R1) Assessment and Plan Patient seen and examined. Continue to monitor accuchecks and diet. All questions answered. (Amber Parsons MD) Debby Griffiths MD R1 Oct 10, 2016 08:49 Amber Parsons MD Oct 10, 2016 10:51
[2016-10-10] MEDS: MULTIVIT/MIN/PREN/FOL AC/IRON PRENATAL TAB PO SCH (09:40)
[2016-10-10] MEDS: FERROUS SULFATE 325 MG (65 MG ELEMENTAL IRON) TAB PO SCH ×2 (09:40→21:01)
[2016-10-10] MEDS: SODIUM CHLORIDE 0.9% FLUSH 5 ML FLUSH IVF SCH ×2 (09:42→21:02)
--- NOTE | 2016-10-10 09:56 | HHI.PR ---
Subjective Remarks f/u for uncontrolled DM patient has no complaints. No hypoglycemia. Objective Result Diagram: 10/08/16 0045 10/07/16 0038 Objective Remarks Gen NAD Abd soft NDNT gravid Medications and IVs Current Medications Acetaminophen (Tylenol) 650 mg Q4H PRN PO PAIN SCALE 1 TO 5; Start 10/06/16 at 23:45 Prenat Multivit/ [place]/Iron/Folic Ac (Stuartnatal Plus 3 ) 1 tab DAILY PO Last administered on 10/10/16 09:40; Start 10/07/16 at 09:00 IV Flush (NS Flush) 2 ml BID IVF Last administered on 10/08/16 08:30; Start at 09:00; Stop 10/08/16 at 20:44; Status DC IV Flush (NS Flush) 2 ml UNSCH PRN IVF FLUSH AFTER USING IV ACCESS; Start 10/06 at 23:45; Stop 10/08/16 at 20:44; Status DC Ondansetron HCl 4 mg 4 mg Q6H PRN IV NAUSEA; Start 10/06/16 at 23:45 Ceftriaxone Sodium/Sodium Chloride (Rocephin Inj/NS Inj) 100 ml @ 200 mls/hr Q24H IV Last administered on 10/07/16 23:26; Start 10/06/16 at 23:45; Stop at 06:52; Status DC Insulin Human Regular (NovoLIN R INJ) 10 units DAILY@08 SQ Last administered on 10/08/16 08:31; Start 10/07/16 at 08:00; Stop 10/08/16 at 09:31; Status DC Insulin Human Isoph/Insulin Regular (NovoLIN 70/30 INJ) 20 units DAILY@08 SQ Last administered on 10/08/16 08:31; Start 10/07/16 at 08:00; Stop 10/08/16 at 09:31; Status DC Insulin Human Isoph/Insulin Regular (NovoLIN 70/30 INJ) 15 units DAILY@17 SQ Last administered on 10/07/16 18:45; Start 10/07/16 at 17:00; Stop 10/08/16 at 09:31; Status DC Insulin Human Regular 10 units 10 units DAILY@17 SQ Last administered on 17:27; Start 10/07/16 at 17:00; Stop 10/09/16 at 11:18; Status DC Lactated Ringer's (Lr 1000 ml Inj) 1,000 ml @ 500 mls/hr BOLUS ONCE IV Last administered on 10/06/16 23:45; Start 10/06/16 at 23:45; Stop 10/07/16 at 01:44 ; Status DC Insulin Human Regular (NovoLIN R SUPPLEMENTAL SCALE) 1 TIDAC SQ Last administered on 10/10/16 09:40; Start 10/07/16 at 17:00 Lidocaine HCl (Xylocaine 1% Inj (50 ml)) 50 ml STK-MED ONCE .ROUTE Last administered on 10/08/16 00:24; Start 10/08/16 at 00:24; Stop 10/08/16 at 00:25 ; Status DC Ferrous Sulfate (Ferrous Sulfate) 325 mg BID PO Last administered on 10/10/16 09:40; Start 10/08/16 at 09:00 Insulin Human Isoph/Insulin Regular (NovoLIN 70/30 INJ) 26 units DAILY@08 SQ ; Start 10/09/16 at 08:00; Stop 10/09/16 at 08:00; Status DC Insulin Human Isoph/Insulin Regular (NovoLIN 70/30 INJ) 22 units DAILY@17 SQ Last administered on 10/08/16 17:28; Start 10/08/16 at 17:00; Stop 10/09/16 at 15:27; Status DC Insulin Human Regular (NovoLIN R INJ) 15 units DAILY@08 SQ Last administered on 10/09/16 09:01; Start 10/09/16 at 08:00; Stop 10/09/16 at 11:18; Status DC Insulin Aspart Prota 70%/Aspart 30% (NovoLOG MIX 70/ 30 INJ) 5 units ONCE ONCE SQ ; Start 10/08/16 at 18:30; Stop 10/08/16 at 18:32; Status DC Fentanyl Citrate (fentaNYL INJ) 100 mcg STK-MED ONCE .ROUTE Last administered on 10/08/16 20:39; Start 10/08/16 at 20:39; Stop 10/08/16 at 20:40; Status DC IV Flush (NS Flush) 2 ml BID IVF Last administered on 10/10/16 09:42; Start at 21:00 IV Flush (NS Flush) 2 ml UNSCH PRN IVF FLUSH AFTER USING IV ACCESS; Start 10/08 at 20:45 Fentanyl Citrate (fentaNYL INJ) 50 mcg Q3H PRN IV PAIN 1-10; Start 10/08/16 at 20:45 Hydroxyzine Pamoate (Vistaril) 100 mg HS PO Last administered on 10/09/16 23: 00; Start 10/08/16 at 22:11 Insulin Aspart Prota 70%/Aspart 30% (NovoLOG MIX 70/ 30 INJ) 30 units DAILY@08 SQ Last administered on 10/10/16 08:00; Start 10/09/16 at 08:00 Senna/Docusate Sodium (Preeti-Colace) 2 tab BID PRN PO CONSTIPATION; Start at 09:00 Insulin Human Isoph/Insulin Regular (NovoLIN 70/30 INJ) 17 units DAILY@17 SQ Last administered on 10/09/16 17:40; Start 10/09/16 at 17:00 A/P Assessment and Plan 21-year-old who is at 29 weeks due date of December 22, 2016 who admitted for UTI. 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 -BS improved with no hypoglycemia. -will continue with current dose novolin 22 units in AM to 17 units in PM. continues with SSI. If dose to be increased I would increase morning dosage. UTI -urine cultures negative. -per treatment from primary team. -being managed by OB. Fay Lozano MD Oct 10, 2016 09:56
[2016-10-10 10:14] LABS: URINE TOTAL PROTEIN TIMED 13.8 MG/DL
--- NOTE | 2016-10-10 13:26 | PD.CONS ---
History & Physical H&P Maternal Medicine Called to evaluate this 21 year old G 4 P 0030 at 29 weeks 4 days gestation admitted with lower abdominal pain and uncontrolled diabetes. HPI: November was admitted a few days ago with low abdominal pain. She was diagnosed with a UTI and is ion Rocephin IV. Had several UTI during . She also had some contractions and a positive FFN. However, her cervix was long and closed and she has currently no contractions, vaginal bleeding or ROM. Past History Medical: IDDM for over 10 years in poor control prepregnancy and currently on Insulin 70/30 and a sliding scale. "Glucose is not good". She is not sure what and how much Insulin she is taking and the diet. Asthma on inhalers. Anemia on Iron. Surgeries: None Smoking; No Drugs: no Alcohol: no Allergies: Macrobid, Naproxen and Coconut Blood transfusions: none OB Had 3 spontaneous miscarriages in the first trimester, the last one in 2015. Physical examination: BP 98/50 HR 91 RR 18 T afebrile General appearance: alert, oriented and in no acute distress Lungs: clear to auscultation Heart: RRR no murmurs Abdomen: , soft and non tender uterus and abdomen. Ext: no edema Labs: WBC 10.1 Hgb: 9.8/29.2 Plat 237 Hgb A1C 8.3% Glucose: all abnormal between 55 and 269. impossible to asses the timing of glucose values Na 139 K 3.5 Creat 0.34 UA positive LE DOA negative 24 hour urine: volume 1225 cc, protein 169 mg RPR neg HIV neg HB negative DIAMOND negative FFN positive Ultrasound: 10/05/2016 Ho fetus EFW 1711 grams Normal anatomy 10/10/2016 Ho fetus Cephalic presentation BPP 8/8 ANNALEE 19.9 cm Impression: 21 year old G 4 p 0030 at 29 weeks 4 days gestation with several medical complications: 1. IDDM in poor control. Currently on 70/30 Insulin with hyperglycemia during the day and some episodes of hypoglycemia in the morning. From the chart it is impossible to properly evaluate the timing of these results. Need better glucose control as in the recommendations. 2. Asthma on inhalers 3. Anemia on hematinics 4. UTI on Rocephin. With history of recurrent UTI she need prophylactic antibiotics during and a monthly urine culture. 5. Poor/limited care Recommendations: 1. Diabetic diet, 2,000 ADA diet with 3 meals and 3 snacks. Need formal digital project coordinator consultation 2. Glucose testing: fasting and 2 hours after meals and a midnight. Goal: FBS < 95 and 2 hours PP < 125 3. Insulin Discontinue 70/30 NPH 20 units in AM and 14 units at HS Novolin R 10 units with breakfast (with NPH), 8 units with lunch and 8 units with Dinner Sliding scale for values > 200 mg/dl 4. Need glucagon at home in case of severe hypoglycemia 5. Daily kick counts 6. Twice testing starting at 32 weeks 7. growth every 4 weeks 8. Complete antibiotic treatment for UTI 9. After this, need test of cure UA and then HS Keflex 10. Monthly urine cultures 11. Iron supplementation 12. Albuterol inhalers 13. No need for steroids at this time. 14. No need for tocolysis at this time Thanks Consultation time: 40 minutes (face to face time, review Record and floor time coordinating care) Michael Jhaveri MD Oct 10, 2016 13:26
[2016-10-10] MEDS ORDERED: INSULIN HUMAN REGULAR 1,000 UNITS/10 ML VIAL SQ SCH ×2 (14:30→18:00)
[2016-10-10] MEDS: INSULIN ASPART SUPPLEMENTAL SCALE SQ SCH ×2 (16:09→18:00)
[2016-10-10] MEDS ORDERED: INSULIN ASPART SUPPLEMENTAL SCALE SQ SCH (17:00)
[2016-10-10] MEDS ORDERED: INSULIN HUMAN NPH 1,000 UNITS/10 ML VIAL SQ SCH (21:00)
[2016-10-10] MEDS: CEPHALEXIN MONOHYDRATE 500 MG CAP PO SCH (21:01)
[2016-10-11] MEDS ORDERED: INSULIN HUMAN REGULAR 1,000 UNITS/10 ML VIAL SQ SCH ×2 (08:00→12:00)
[2016-10-11] MEDS ORDERED: INSULIN HUMAN NPH 1,000 UNITS/10 ML VIAL SQ SCH ×2 (08:00→21:00)
[2016-10-11] MEDS: MULTIVIT/MIN/PREN/FOL AC/IRON PRENATAL TAB PO SCH (08:18)
[2016-10-11] MEDS: FERROUS SULFATE 325 MG (65 MG ELEMENTAL IRON) TAB PO SCH ×2 (08:18→21:00)
[2016-10-11] MEDS: INSULIN ASPART SUPPLEMENTAL SCALE SQ SCH ×3 (08:45→18:05)
[2016-10-11] MEDS ORDERED: INSULIN ASPART 1,000 UNITS/10 ML VIAL SQ SCH ×3 (12:00→18:00)
[2016-10-11] MEDS: CEPHALEXIN MONOHYDRATE 500 MG CAP PO SCH (21:00)
[2016-10-12] MEDS ORDERED: INSULIN HUMAN NPH 1,000 UNITS/10 ML VIAL SQ SCH ×2 (08:00→21:00)
[2016-10-12] MEDS ORDERED: INSULIN ASPART 1,000 UNITS/10 ML VIAL SQ SCH ×5 (08:00→18:00)
--- NOTE | 2016-10-12 08:16 | PD.OB.ANTE ---
Subjective Diagnosis: (1) (2) Type 1 diabetes (3) Recurrent urinary tract infection affecting (4) Positive fibronectin at 22 weeks to 34 weeks gestation Interval History Patient was seen on October 11, 2016; blood sugars range from 192-236, and NPH and NovoLog were increased by 20 units at each administration starting yesterday afternoon. No new complaints today. She states her last meal was last night. Fasting glucose was 227 this morning, overnight she had blood sugars of 174 @ 9PM, and 110 @ 2 AM. She denies having overnight snacks. She really wants to go home today. Patient has had a category 1 strip with heart rate at 150, positive accelerations,decelerations, moderate variability Antepartum ROS: Reports: movement normal, Denies: New complaints, Loss of fluid, Vaginal bleeding, Contractions ( Debby Griffiths MD R1) Objective Physical Exam GENERAL: Well-nourished, well-developed female CARDIOVASCULAR: Regular rate and rhythm without murmurs, gallops, or rubs. RESPIRATORY: Breath sounds equal bilaterally. No accessory muscle use. ABDOMEN/GI: Abdomen soft, non-tender. Fundus nontender. GENITOURINARY: External Genitalia: deferred EXTREMITIES: No cyanosis or edema, non-tender, without signs of DVT. (Debby Griffiths MD R1) Assessment and Plan Problem List: (1) Status: Acute (2) Type 1 diabetes Status: Acute Assessment & Plan: Impression: Labile blood glucoses during hospitalization, improved. Overnight sugars less than 200. Patient possibly may be discharged today if blood sugars controlled and diet remains consistent. Plan: -Patient to follow sugars this morning, if stable, will consider discharge today -Continue bedside glucose checks at fasting, before meals, 2 hour postprandial, 2 AM -22 units NPH with 12 units of NovoLog at 8 AM -10 units of NovoLog at 12 PM and 6 PM -16 units NPH at 9 PM -Counseling on diabetes management by consultpatient states she will take nutrition class at [facility] upon discharge -She needs a PCP/DENTIST who can regularly follow her blood sugars and diet - plans to follow up with care for women -She needs to follow up with MFM for BPP twice weekly, monitoring AFIs WDW with Dr. Grant (3) Recurrent urinary tract infection affecting Status: Resolved Assessment & Plan: Impression: 3 prior UTIs this . Urine culture collected this hospital stay was negative for UTI, showing less than 50,000 colony-forming units. Rocephin was discontinued, however, given diabetes and recurrent UTIs we started Keflex 500 mg by mouth at bedtime as a prophylactic medication that patient is to continue this . (4) Positive fibronectin at 22 weeks to 34 weeks gestation Status: Acute Assessment & Plan: Impression: Category 1 strip, cervix closed on speculum exam on 10/08/16, no contractions on monitor. High risk for pre-term labor. Ultrasound performed with OB diagnostics on 10/10/16 showing BPP of 8/8, ANNALEE 19.9 , arizmendi in cephalic position. NST is normal. Cervical length was 43 mm without following. -Continue to monitor, patient is high risk for labor, needs close follow -up with MFM and provider who can provide close glucose management Assessment and Plan Patient seen and examined. Continue to monitor accuchecks and diet. All questions answered. (Debby Griffiths MD R1) Addendum Remarks I rounded on the patient. I rounded with the resident. I reviewed the resident' s assessment and plan of care for this patient. I am in agreement with the plan of care for this patient. (Shellie Hill MD) Debby Griffiths MD R1 Oct 12, 2016 08:16 Shellie Hill MD Oct 12, 2016 10:27
[2016-10-12] MEDS: INSULIN ASPART SUPPLEMENTAL SCALE SQ SCH (08:45)
[2016-10-12] MEDS: FERROUS SULFATE 325 MG (65 MG ELEMENTAL IRON) TAB PO SCH (08:46)
[2016-10-12] MEDS: MULTIVIT/MIN/PREN/FOL AC/IRON PRENATAL TAB PO SCH (08:46)
[2016-10-12] MEDS: SODIUM CHLORIDE 0.9% FLUSH 5 ML FLUSH IVF SCH (08:46)
[2016-10-12] MEDS ORDERED: PEN31MIS2 (16:49)
[2016-10-12] MEDS ORDERED: NOVONP2 SQ ×2 (17:00)
[2016-10-12] MEDS ORDERED: FERR325T PO (17:00)
[2016-10-12] MEDS ORDERED: CEPH500C PO (17:00)
[2016-10-12] MEDS ORDERED: NOVOLOGP2 SQ ×3 (17:00)
--- NOTE | 2016-10-12 17:03 | HHI.DCPOC ---
Discharge Care Plan Diagnosis: (1) Type 1 diabetes (2) 30 weeks gestation of (3) Recurrent urinary tract infection affecting Report Symptoms to Your Doctor -Temperate above 100.5 degrees -Redness, of incision or excessive or foul smelling drainage -Unusual pain or calf pain -Increased vaginal bleeding -Painful or difficulty urinating -Feelings of extreme sadness or anxiety after 2 weeks Goals to Promote Your Health * To prevent worsening of your condition and complications * To maintain your health at the optimal level Directions to Meet Your Goals Take your medications as prescribed Follow your dietary instruction Follow activity as directed Ensure plenty of rest for recovery Drink fluids for hydration Keep your appointments as scheduled Take your immunizations and boosters as scheduled If your symptoms worsen call your PCP, if no PCP go to Urgent Care Center or Emergency Room Smoking is Dangerous to Your Health. Avoid second hand smoke Call the 24-hour crisis hotline for domestic abuse at Debby Griffiths MD R1 Oct 12, 2016 17:03
--- NOTE | 2016-10-12 17:05 | HHI.PR ---
Addendum to Inpatient Note Addendum Reason: Additional Documentation Additional Information Addendum: Patient's blood sugars collected today after fasting blood sugar have been < 200. Patient wants to go home. Patient was discharged per OB Hospitalist request. Patient was counseled on importance of strict dietary monitoring and insulin management. She states she has glucometer, strips, and needles and only requires insulin. NPH and Novolog was prescribed for patient; physical prescriptions were given. She was also given prescription for Keflex, to be taken once daily as prophylaxis against UTI given recurrent UTIs and DM. Recommend follow up with PCP within one week. She will be set up with MFM follow -up as outpatient. She will be called at [phone] with information regarding these appointments once they are made (we will call [facility] tomorrow). All questions were answered. Patient expressed understanding of the plan and agreed with plan of care. DORIS Soriano Dr., Dr., Kara L MD R1 Oct 12, 2016 17:05
[2016-10-13] MEDS ORDERED: INSULIN ASPART 1,000 UNITS/10 ML VIAL SQ SCH (08:00)
[2016-10-13] MEDS ORDERED: INSULIN HUMAN NPH 1,000 UNITS/10 ML VIAL SQ SCH (08:00)
--- NOTE | 2016-10-13 09:14 | HHI.DS ---
Discharge Summary Admission Date Oct 08, 2016 at 20:41 Discharge Date: Oct 12, 2016 Admitting Diagnosis Type 1 diabetes, at 29 weeks, recurrent UTIs (1) Type 1 diabetes Diagnosis: Principal (2) 30 weeks gestation of Diagnosis: Principal (3) Recurrent urinary tract infection affecting Diagnosis: Secondary Consultants Maternal medicine Internal medicine Procedures OB Ultrasound 10/11/2016 Brief History Patient is a 21-year-old who is at 29 weeks today with then due date of December 22, 2016. Patient has type 1 diabetes on insulin therapy and see an OB provider in [place]. Patient states that this pain is similar to her previous urinary tract infections. Patient has had at least 3 urinary tract infections this . Patient states she has excellent movement and denies vaginal bleeding or discharge. PE at Discharge GENERAL: Well-nourished, well-developed female CARDIOVASCULAR: Regular rate and rhythm without murmurs, gallops, or rubs. RESPIRATORY: Breath sounds equal bilaterally. No accessory muscle use. ABDOMEN/GI: Abdomen soft, non-tender. Fundus nontender. GENITOURINARY: External Genitalia: deferred EXTREMITIES: No cyanosis or edema, non-tender, without signs of DVT. Hospital Course 21-year-old female admitted at 29 weeks gestation admitted for nausea and vomiting, uterine irritability, type 1 diabetes, possible cystitis. She presented with hypoglycemia, with glucose of 47. She had category 1 strip and closed cervix but has positive fibronectin. She was started on Rocephin for possible UTI, urine culture was negative, and Rocephin was discontinued on Day 2. Keflex 500mg daily was started for UTI prophylaxis given her history of recurrent UTIs and Type 1 DM. Patient had a closed cervix on exam and betamethasone was not provided given not determined to be indicated. She was monitored closely for labor signs and and toco monitoring was continuous during her stay. Initial regimen based on home regimen was insulin regimen includes Novolin 7/30 20 units plus Novolin R 10 units in the morning, followed by Novolin 70/30 15 units plus Novolin R 10 units in the evening. Blood glucose at 3 AM was 190, repeat fasting glucose this morning is pending. She had labile blood glucoses during her hospital stay--overnight she has fasting blood glucoses of approximately 50 on Day 3 and max blood glucose approximately 300 during her stay. Inpatient medicine consult was place and dosing of insulin was adjusted. Glucose checks were not showing optimal control, however, with subsequent fasting blood sugar approximately 250 on days 3 and 4. Diabetic nutrition consult was placed and patient stated she will attending [place] nutrition classes. MFM consult was placed and the following recommendations were given: 1. Diabetic diet, 2,000 ADA diet with 3 meals and 3 snacks. Need formal frozen yogurt maker consultation 2. Glucose testing: fasting and 2 hours after meals and a midnight. Goal: FBS < 95 and 2 hours PP < 125 3. Insulin Discontinue 70/30 NPH 20 units in AM and 14 units at HS Novolin R 10 units with breakfast (with NPH), 8 units with lunch and 8 units with Dinner Sliding scale for values > 200 mg/dl 4. Need glucagon at home in case of severe hypoglycemia 5. Daily kick counts 6. Twice testing starting at 32 weeks 7. growth every 4 weeks 8. Complete antibiotic treatment for UTI 9. After this, need test of cure UA and then HS Keflex 10. Monthly urine cultures 11. Iron supplementation 12. Albuterol inhalers 13. No need for steroids at this time. 14. No need for tocolysis at this time Ultrasound performed with OB diagnostics on 10/10/16 showing BPP of 8/8, ANNALEE 19.9 , arizmendi in cephalic position. NST is normal. Cervical length was 43 mm without funneling. Her discharge regimen was as follows: -Continue bedside glucose checks at fasting, before meals, 2 hour postprandial, 2 AM -22 units NPH with 12 units of NovoLog at 8 AM -10 units of NovoLog at 12 PM and 6 PM -16 units NPH at 9 PM Patient had better glucose control over the last day of hospital stay. Patient' s blood sugars collected 3/2 after fasting blood sugar <200. Patient requested discharge at that time. Patient was discharged per OB Hospitalist request. Patient was counseled on importance of strict dietary monitoring and insulin management. She states she has glucometer, strips, and needles and only requires insulin. NPH and Novolog was prescribed for patient; physical prescriptions were given. She was also given prescription for Keflex, to be taken once daily as prophylaxis against UTI given recurrent UTIs and DM. Recommend follow up with PCP within one week. Patient will follow up at [facility] on October 17; she will be set up with MFM/OB Diagnostics follow-up through them. All questions were answered prior to discharge. Patient expressed understanding of the plan and agreed with plan of care. Pt Condition on Discharge: Stable Discharge Disposition: Discharge Home Discharge Instructions DIET: Follow Instructions for: Diabetic Diet Activities you can perform: Regular-No Restrictions Follow up Referrals: Physician - 3-5 Days New Medications: Pen [place] 31G X 1/4" Sh 31G X 6 mm (Pen [place] 31G X 1/4" Sh 31G X 6 mm) 1 Mis Mis 1 BOX .ROUTE DIRECTED Blood Sugar Management #3 BOX Cephalexin (Cephalexin) 500 Mg Cap 500 MG PO HS #30 Ref 3 CAP Ferrous Sulfate (Ferrous Sulfate) 325 Mg Tab 325 MG PO BID #60 Ref 3 TAB Insulin Aspart Inj (Novolog Inj) 1,000 Unit/10 Ml Vial 12 UNITS SQ DAILY@12 Take Novolog as prescribed: 14 UNITS AT 8AM, 12 UNITS AT 12PM, 12 UNITS AT 6PM. #1 BOX Insulin Aspart Inj (Novolog Inj) 1,000 Unit/10 Ml Vial 14 UNITS SQ DAILY@08 Take Novolog as prescribed: 14 UNITS AT 8AM, 12 UNITS AT 12PM, 12 UNITS AT 6PM. #1 BOX Insulin Aspart Inj (Novolog Inj) 1,000 Unit/10 Ml Vial 12 UNITS SQ DAILY@18 Take Novolog as prescribed: 14 UNITS AT 8AM, 12 UNITS AT 12PM, 12 UNITS AT 6PM. #1 BOX Insulin Human NPH Inj (Novolin N Inj) 1,000 Unit/10 Ml Vial 24 UNITS SQ DAILY@08 Take 24 UNITS at 8AM, and 18 UNITS at 9PM #1 BOX Insulin Human NPH Inj (Novolin N Inj) 1,000 Unit/10 Ml Vial 18 UNITS SQ DAILY@21 Take 24 UNITS at 8AM, and 18 UNITS at 9PM #1 BOX Continued Medications: Albuterol Sulfate 8 GM Inhaler (Ventolin Hfa) 8 Gm Aero 2 PUFF INH Q6 * SHAKE WELL BEFORE USE * PRN WHEEZING #1 BOX (Glucometer Test Strips) Box 1 BOX XX QID diabetes #1 Ref 1 BOX Discontinued Medications: Ferrous Fumarate (Iron) 18 Mg Tab 18 MG PO DAILY Nutritional Supplement Ref 0 TAB Insulin Human Regular (Novolin R) 100 Units/Ml Inj 5 UNITS SQ BID@,17 #1 INJECTION Insulin Isophane (Human) (Novolin N) 1 Ml Inj 10 UNITS SQ BID@08,17 10 units in AM and 15 units in PM. #1 INJECTION W/O Vit A W/ Fe Carbo (Pnv Ob+Dha) Raul 1 CAP PO DAILY #30 Ref 9 Debby Fuentes MD R1 Oct 13, 2016 09:14
[2016-10-13 12:25] LABS: BATH SALTS (MDPV) UR NEG (NEG); ECSTASY (MDMA) UR NEG (NEG); HEROIN (6-ACETYLMORPHINE) UR NEG (NEG); K2 SPICE UR NEG (NEG); OBMETHADONE UR NEG (NEG); PHENCYCLIDINE URINE NEG (NEG)
[2016-10-13 12:26] LABS: OXYCODONE (PERCODAN) NEG (NEG)
[2016-12-01] MEDS ORDERED: VENTAER INH (09:59)
[2016-12-01] MEDS ORDERED: PEN31MIS2 (10:20)
[2016-12-01] MEDS ORDERED: ONETTES4 (10:22)
[2016-12-01] MEDS ORDERED: NOVORP2 SQ (10:22)
== END 2016-10-12 19:39 | disposition home or self-care (01) | DRG 781 ==
LOC: HOBED 21:20 → H2EA 23:33 → OBSVTOIN 10-08 20:41
PROVIDERS: ADMIT Obstetrics & Gynecology Obstetrics; ATTEND Obstetrics & Gynecology Obstetrics
DX: O23.43 Unspecified infection of urinary tract in pregnancy, third trimester (principal); O24.013 Pre-existing type 1 diabetes mellitus, in pregnancy, third trimester; E10.649 Type 1 diabetes mellitus with hypoglycemia without coma; Z79.4 Long term (current) use of insulin; Z3A.29 29 weeks gestation of pregnancy; E10.65 Type 1 diabetes mellitus with hyperglycemia; O99.013 Anemia complicating pregnancy, third trimester; D50.9 Iron deficiency anemia, unspecified; O99.513 Diseases of the respiratory system complicating pregnancy, third trimester; J45.909 Unspecified asthma, uncomplicated
CPT/HCPCS: 76817; 76819; 80048; 80074; 80307; 81001; 82731; 82948; 83036; 84157; 85025; 86592; 86703; 86762; 86850; 86900; 86901; 87086; 87640; 87641; 99284; G0378; G0481; J0696; J1815; J3010; J7120

== ENCOUNTER 2016-10-15 00:33 | Emergency (ER) | payer MEDICAID ==
[~2016-10-15 00:33] MED LIST changes: -ACET5SOL5 PO; -CEPH-460 PO; +CEPH500C PO; +FERR325T PO; +NOVOLOGP2 SQ; -NOVORP2 SQ; +PEN31MIS2; -PNVPAK PO; -REGL10TA5 PO; -[UNRECOGNIZED DRUG - CODE] IJ; -[UNRECOGNIZED DRUG - CODE] TOP
--- NOTE | 2016-10-15 01:53 | PD ---
HPI Chief Complaint Abdominal pain Date Seen: Oct 15, 2016 Time Seen: 01:40 Travel History International Travel<30 Days: No Contact w/Intl Traveler<30Days: No Known Affected Area: No History of Present Illness HPI 21-year-old 3 para 0 at 30 weeks 2 days' gestation with an EDC of December 22 who is discharged home from the hospital 2 days ago after an admission for urinary tract infection and poorly controlled diabetes. The patient reports that Sunday night she experienced some abdominal pain that resolved when she went to sleep. She noticed similar pain this evening. She describes the pain as constant when it occurs. Its character is cramping or burning. It is located at the level of the umbilicus and slightly to the right. Does not radiate. She denies any dysuria hematuria or frequency. She reports no change in bowel activity. No diarrhea or constipation. She had intercourse Sb night. No bleeding, discharge or leakage of fluid. She reports that her blood sugars are improved. She states that her 2 hour postprandial after her supper tonight was 280 however. She states that she checked her blood sugar prior to coming in and was 180. Her fasting this morning was 105 and after breakfast was 126. Para: 0 : 3 Miscarriage: 2 History Past Medical History Narrative Medical Insulin-dependent diabetes with history of ketoacidosis Recurrent urinary tract infection Obstetric History Obstetric History 2 miscarriages Poorly controlled insulin-dependent diabetes this with recent admission Keflex 500 mg daily at bedtime for UTI prophylaxis is reportedly being taken Past Surgical History Narrative Surgical None Family History Family History: Negative Social History Alcohol Use: No Tobacco Use: No Substance Abuse: No Allergies-Medications (Allergen,Severity, Reaction): Coded Allergies: Macrobid (Verified Allergy, Severe, Rash, 10/07/16) Naproxen (Verified Allergy, Severe, Hypotension, 08/26/16) Coconut (Verified Allergy, Intermediate, Rash, 08/26/16) *MDRO Multi-Drug Resistant Organism (Verified Adverse Reaction, Unknown, ) MRSA PCR Screen POSITIVE - 02/24/2015 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 Prov:Debby Griffiths MD R1 10/12/16 Insulin Aspart Inj (Novolog Inj)1,000 Unit/10 Ml Vial14 Units SQ DAILY@08 #1 BOX Take Novolog as prescribed: 14 UNITS AT 8AM, 12 UNITS AT 12PM, 12 UNITS AT 6PM. Prov:Debby Griffiths MD R1 10/12/16 Insulin Aspart Inj (Novolog Inj)1,000 Unit/10 Ml Vial12 Units SQ DAILY@12 #1 BOX Take Novolog as prescribed: 14 UNITS AT 8AM, 12 UNITS AT 12PM, 12 UNITS AT 6PM. Prov:Debby Griffiths MD R1 10/12/16 Insulin Human NPH Inj (Novolin N Inj)1,000 Unit/10 Ml Vial18 Units SQ DAILY@21 #1 BOX Take 24 UNITS at 8AM, and 18 UNITS at 9PM Prov:Debby Griffiths MD R1 10/12/16 Insulin Human NPH Inj (Novolin N Inj)1,000 Unit/10 Ml Vial24 Units SQ DAILY@08 #1 BOX Take 24 UNITS at 8AM, and 18 UNITS at 9PM Prov:Debby Griffiths MD R1 10/12/16 Pen [place] 31G X 1/4" Sh 31G X 6 mm 1 Mis Mis #3 Box .route As Directed Prov:Debby Griffiths MD R1 10/12/16 Albuterol Sulfate 8 GM Inhaler (Ventolin Hfa)8 Gm Aero2 Puff INH Q6 PRN ( WHEEZING) #1 BOX * SHAKE WELL BEFORE USE * Prov:Carlota Hagen MD 12/28/15 Glucometer Test Strips Box #1 BOX XX QID Ref 1 Prov:Fay Lozano MD 11/23/15 Discontinued Reported Medications Ferrous Fumarate (Iron)18 Mg Tab18 Mg PO DAILY Ref 0 10/07/16 Discontinued Scripts W/O Vit A W/ Fe Carbo (Pnv Ob+Dha) Pak1 Cap PO DAILY #30 MARCOS Ref 9 Prov:Stacey Main MD R2 05/06/16 Insulin Isophane (Human) (Novolin N)1 Ml Inj10 Units SQ BID@ #1 INJECTION 10 units in AM and 15 units in PM. Prov:Stacey Main MD R2 05/06/16 Insulin Human Regular (Novolin R)100 Units/Ml Inj5 Units SQ BID@ #1 INJECTION Prov:Stacey Main MD R2 05/06/16 Review of Systems Except as stated in HPI: all other systems reviewed are Neg Physical Exam Narrative GENERAL: Well-nourished, well-developed patient. SKIN: Warm and dry. HEAD: Normocephalic and atraumatic. EYES: No scleral icterus. No injection or drainage. ENT: No nasal drainage noted. Mucous membranes pink. Airway patent. NECK: Supple, trachea midline. No JVD. CARDIOVASCULAR: Regular rate and rhythm without murmurs, gallops, or rubs. RESPIRATORY: Breath sounds equal bilaterally. No accessory muscle use. ABDOMEN/GI: Abdomen soft, non-tender, bowel sounds present, no rebound, no guarding Gravid to [-] weeks size Fundal Height: [-] GENITOURINARY: External Genitalia: intact and normal in appearance BUS glands: [-Negative] Cervix: [Closed-] Dilatation: [-] Effacement: [Long-] Station: [High-] Presentation: [-] Membranes: [intact] Uterine Contractions: [No-] FHT's: Category: [-] Baseline: [-] Reactive: [-Yes] Variability: [-] Decels: [-] EXTREMITIES: No cyanosis or edema. BACK: Nontender without obvious deformity. No CVA tenderness. NEUROLOGICAL: Awake and alert. Motor and sensory grossly within normal limits. Five out of 5 muscle strength in all muscle groups. Normal speech. Data Data Vital Signs Reviewed: Yes Orders Vital Signs (Adult) .ON ADMISSION (10/15/16 01:35) ^ Labor Status (10/15/16 01:35) Urinalysis - C+S If Indicated (10/15/16 01:35) MDM Medical Record Reviewed: Yes Narrative Course / MDM Assessment: 30-2/7 weeks' gestation with poorly controlled diabetes and recent admission for urinary tract infection. Benign examination for reported abdominal pain. Negative urinalysis Plan: Discharged to home. Continue with [facility]. She will increase her suppertime regular insulin by 2 units. Follow -up when necessary Diagnosis Diagnosis: Primary Impression: with 30 completed weeks gestation Additional Impressions: Type 1 diabetes Recurrent urinary tract infection affecting Disposition: 01 DISCHARGE HOME Condition: Good Jamal Pitts MD Oct 15, 2016 01:53
[2016-10-15 02:32] LABS: BLOOD, URINE NEG (NEG); COMMENT (UR) CULT NOT INDICATED; CULTURE IF INDICATED CULT NOT INDICATED; GLUCOSE,URINE 1000 mg/dL (NEG); KETONE, URINE 10 mg/dL (NEG); MUCUS URINE FEW /lpf (OCC); NITRITE,URINE NEG (NEG); PH, URINE 6.5 (5.0-8.5); SQUAMOUS EPITHELIAL CELL URINE 7 /hpf (0-5); URINE COLOR YELLOW (YELLW/STRAW)
[2016-12-01] MEDS ORDERED: VENTAER INH (09:59)
[2016-12-01] MEDS ORDERED: PEN31MIS2 (10:20)
[2016-12-01] MEDS ORDERED: NOVORP2 SQ (10:22)
[2016-12-01] MEDS ORDERED: ONETTES4 (10:22)
== END 2016-10-15 02:49 | disposition home or self-care (01) ==
LOC: HOBED 00:33
DX: O24.013 Pre-existing type 1 diabetes mellitus, in pregnancy, third trimester (principal); Z3A.30 30 weeks gestation of pregnancy
CPT/HCPCS: 81001; 99284

== ENCOUNTER 2016-10-31 22:27 | Observation (INO) | payer MEDICAID ==
[~2016-10-31] VITALS: Ht 160 cm; Wt 64.9 kg
[2016-10-31] MEDS ORDERED: SODIUM CHLOR 0.9% 1000 ML INJ 1,000 ML IV ONE (23:15)
[2016-10-31 23:18] LABS: BACTERIA, URINE RARE /hpf; BLOOD, URINE NEG (NEG); COMMENT (UR) CULT NOT INDICATED; CULTURE IF INDICATED CULT NOT INDICATED; GLUCOSE,URINE 1000 mg/dL (NEG); KETONE, URINE 150 mg/dL (NEG); MUCUS URINE FEW /lpf (OCC); NITRITE,URINE NEG (NEG); PH, URINE 5.5 (5.0-8.5); SQUAMOUS EPITHELIAL CELL URINE 12 /hpf (0-5); URINE COLOR LIGHT-YELLOW (YELLW/STRAW)
[2016-10-31 23:21] LABS: HEMATOCRIT 39.4 % (35.0-46.0); MEAN CELL VOLUME 85.9 FL (80.0-100.0); MEAN CORPUSCULAR HEMOGLOBIN 28.3 PG (27.0-34.0); MEAN CORPUSCULAR HGB CONC 32.9 % (32.0-36.0); PLATELET COUNT 159 TH/MM3 (150-450); RED BLOOD COUNT 4.58 MIL/MM3 (4.00-5.30); RED CELL DISTRIBUTION WIDTH 16.2 % (11.6-17.2); REVIEW FLAG FINAL; WHITE BLOOD COUNT 9.4 TH/MM3 (4.0-11.0)
[2016-10-31 23:24] LABS: AMPHETAMINE, URINE NEG (NEG); BARBITURATES, URINE NEG (NEG); COCAINE, URINE NEG (NEG)
[2016-10-31] MEDS: LACTATED RINGER'S 1000 ML INJ 1,000 ML IV SCH (23:30)
[2016-10-31] MEDS ORDERED: TERBUTALINE INJ 1 MG/ML AMP SQ ONE (23:45)
[2016-10-31 23:48] VITALS: BP 125/74; PULSE 95
[2016-11-01] VITALS (13 sets, daily range): BP systolic 113–126; BP diastolic 66–75; PULSE 72–128; RESP 16–18; TEMP 97.8–98
[2016-11-01] LABS: ALT (GPT) 12 U/L (10-53); ANION GAP 14 MEQ/L (5-15); BICARBONATE 21.1 MEQ/L (21.0-32.0); BLOOD UREA NITROGEN 9 MG/DL (7-18); CHLORIDE 99 MEQ/L (98-107); GLOMERULAR FILTRATION RATE 92 ML/MIN (>89); POTASSIUM 4.3 MEQ/L (3.5-5.1); SODIUM (NA) 134 MEQ/L (136-145)
[2016-11-01 00:02] LABS: ALKALINE PHOSPHATASE 91 U/L (45-117); AST (GOT) 18 U/L (15-37); TOTAL BILIRUBIN ADULT 0.4 MG/DL (0.2-1.0)
[2016-11-01] MEDS ORDERED: INSULIN HUMAN REGULAR 1,000 UNITS/10 ML VIAL SQ ONE (00:15)
[2016-11-01] MEDS ORDERED: ONDANSETRON HCL 4 MG/2 ML VIAL IV PRN (00:15)
[2016-11-01] MEDS ORDERED: SODIUM CHLORIDE 0.9% FLUSH 10 ML FLUSH IV FLUSH PRN (00:15)
[2016-11-01] MEDS ORDERED: CEPHALEXIN MONOHYDRATE 250 MG CAP PO SCH ×2 (00:15→21:00)
[2016-11-01] MEDS ORDERED: ZOLPIDEM TARTRATE 5 MG TAB PO PRN (00:15)
[2016-11-01] MEDS: LACTATED RINGER'S 1000 ML INJ 1,000 ML IV SCH ×6 (00:16→23:31)
--- NOTE | 2016-11-01 00:33 | HHI.HP ---
History & Physical H&P HPI Chief Complaint Contractions since this morning Date Seen: Oct 31, 2016 Time Seen: 23:10 Travel History International Travel<30 Days: No Contact w/Intl Traveler<30Days: No Known Affected Area: No History of Present Illness HPI Patient is a 21-year-old female at 32 weeks 4 days who comes in complaining of contractions since this morning. Patient has a history of poorly controlled type 1 diabetes presently on insulin her regimen consists of NPH 20 units in the morning and 14 units before bedtime as well as regular insulin 10 units with breakfast along with her NPH, 8 units with lunch, and 8 units with dinner. Patient has had very limited care this . She has been in consistent about using her insulin, does not follow any sort of diet, with her last hemoglobin A1c at 8.3. Patient had an ultrasound this morning at [facility] that showed the baby's weight at greater than the 90th percentile at 2879 g, 6 lbs. 5 oz., amniotic fluid index was 27, BPP was 10 out of 10. Patient admits to poor oral hydration today. She had a previous positive fibronectin and was admitted in September for observation of the positive fibronectin, treatment of recurrent urinary tract infection, and control of diabetes. She was not given betamethasone on that admission. Para: 0 : 4 History Past Medical History Narrative Medical Type 1 diabetes for the past 10 years Asthma on inhalers as necessary Anemia treated with vitamins and iron supplemental therapy Obstetric History Obstetric History 3 prior first trimester losses Poor glycemic control with sugars running between 68 and 290. Patient does not do consistent Accu-Cheks throughout the day and does not know her present dose of insulin but states that it is unchanged from her previous admission here Past Surgical History Surgical History: No Previous Surgery Family History Family History: Negative Social History Alcohol Use: No Tobacco Use: No Substance Abuse: No Allergies-Medications (Allergen,Severity, Reaction): Coded Allergies: Macrobid (Verified Allergy, Severe, Rash, 10/24/16) Naproxen (Verified Allergy, Severe, Hypotension, 10/24/16) Coconut (Verified Allergy, Intermediate, Rash, 10/24/16) *MDRO Multi-Drug Resistant Organism (Verified Adverse Reaction, Unknown, ) MRSA PCR Screen POSITIVE - 02/24/2015 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 ESBL+E.Coli (urine) - 07/2015 Home Meds Active Scripts Ferrous Sulfate 325 Mg [id number] Mg PO BID #60 TAB Ref 3 Prov:Debby Griffiths MD R1 10/12/16 Cephalexin 500 Mg [id number] Mg PO HS #30 CAP Ref 3 Prov:Debby Griffiths MD R1 10/12/16 Insulin Aspart Inj (Novolog Inj)1,000 Unit/10 Ml Vial12 Units SQ DAILY@18 #1 BOX Take Novolog as prescribed: 14 UNITS AT 8AM, 12 UNITS AT 12PM, 12 UNITS AT 6PM. Prov:Debby Griffiths MD R1 10/12/16 Insulin Aspart Inj (Novolog Inj)1,000 Unit/10 Ml Vial14 Units SQ DAILY@08 #1 BOX Take Novolog as prescribed: 14 UNITS AT 8AM, 12 UNITS AT 12PM, 12 UNITS AT 6PM. Prov:Debby Griffiths MD R1 10/12/16 Insulin Aspart Inj (Novolog Inj)1,000 Unit/10 Ml Vial12 Units SQ DAILY@12 #1 BOX Take Novolog as prescribed: 14 UNITS AT 8AM, 12 UNITS AT 12PM, 12 UNITS AT 6PM. Prov:Debby Griffiths MD R1 10/12/16 Insulin Human NPH Inj (Novolin N Inj)1,000 Unit/10 Ml Vial18 Units SQ DAILY@21 #1 BOX Take 24 UNITS at 8AM, and 18 UNITS at 9PM Prov:Debby Griffiths MD R1 10/12/16 Insulin Human NPH Inj (Novolin N Inj)1,000 Unit/10 Ml Vial24 Units SQ DAILY@08 #1 BOX Take 24 UNITS at 8AM, and 18 UNITS at 9PM Prov:Debby Griffiths MD R1 10/12/16 Pen [place] 31G X 1/4" Sh 31G X 6 mm 1 Mis Mis #3 Box .route As Directed Prov:Debby Griffiths MD R1 10/12/16 Albuterol Sulfate 8 GM Inhaler (Ventolin Hfa)8 Gm Aero2 Puff INH Q6 PRN ( WHEEZING) #1 BOX * SHAKE WELL BEFORE USE * Prov:Carlota Hagen MD 12/28/15 Glucometer Test Strips Box #1 BOX XX QID Ref 1 Prov:Fay Lozano MD 11/23/15 Review of Systems Except as stated in HPI: all other systems reviewed are Neg Physical Exam Narrative GENERAL: Well-nourished, well-developed patient. SKIN: Warm and dry. HEAD: Normocephalic and atraumatic. EYES: No scleral icterus. No injection or drainage. ENT: No nasal drainage noted. Mucous membranes pink. Airway patent. NECK: Supple, trachea midline. No JVD. CARDIOVASCULAR: Regular rate and rhythm without murmurs, gallops, or rubs. RESPIRATORY: Breath sounds equal bilaterally. No accessory muscle use. BREASTS: Bilateral exam showed no masses , no retractions, no nipple discharge. ABDOMEN/GI: Abdomen soft, non-tender, bowel sounds present, no rebound, no guarding Gravid to [34-] weeks size Fundal Height: [-] GENITOURINARY: External Genitalia: intact and normal in appearance BUS glands: [Normal-] Cervix: [-Mid position] Dilatation: Closed Effacement: 50 Station: -3 Presentation: Vertex Membranes: Intact Uterine Contractions: [Every 3 minutes-] FHT's: Category: [-2] Baseline: [160-] Reactive: Moderate Variability: Moderate Decels: - Upon arrival patient placed on external monitoring with a baseline of 150-160 moderate variability, late decelerations noted on approximately 30% of her contractions. After 700cc LR FHR tracing is now Category 1, no further decelerations noted. EXTREMITIES: No cyanosis or edema. BACK: Nontender without obvious deformity. No CVA tenderness. NEUROLOGICAL: Awake and alert. Motor and sensory grossly within normal limits. Five out of 5 muscle strength in all muscle groups. Normal speech. Data Data Orders Vital Signs (Adult) .ON ADMISSION (10/31/16 23:02) ^ Labor Status (10/31/16 23:02) Urinalysis - C+S If Indicated (10/31/16 23:02) Cbc No Diff, Includes Plts (10/31/16 23:02) Comprehensive Metabolic Panel (10/31/16 23:02) Type And Screen (10/31/16 23:02) Fibronectin (10/31/16 23:02) Drug Screen, Random Urine (10/31/16 23:02) Sodium Chlor 0.9% 1000 Ml Inj (Ns 1000 M (10/31/16 23:15) Labs Laboratory Tests Test 10/31/16 10/31/16 23:00 23:12 Urine Color LIGHT-YELLOW Urine Turbidity HAZY Urine pH 5.5 Urine Specific [place] 1.031 Urine Protein TRACE mg/dL Urine Glucose (UA) 1000 mg/dL Urine Ketones 150 mg/dL Urine Occult Blood NEG Urine Nitrite NEG Urine Bilirubin NEG Urine Urobilinogen LESS THAN 2.0 MG/DL Urine Leukocyte Esterase NEG Urine RBC 1 /hpf Urine WBC 5 /hpf Urine Squamous Epithelial 12 /hpf Cells Urine Bacteria RARE /hpf Urine Mucus FEW /lpf Microscopic Urinalysis Comment CULT NOT INDICATED Fibronectin NEGATIVE Urine Opiates Screen NEG Urine Barbiturates Screen NEG Urine Amphetamines Screen NEG Urine Benzodiazepines Screen NEG Urine Cocaine Screen NEG Urine Cannabinoids Screen NEG White Blood Count 9.4 TH/MM3 Red Blood Count 4.58 MIL/MM3 Hemoglobin 13.0 GM/DL Hematocrit 39.4 % Mean Corpuscular Volume 85.9 FL Mean Corpuscular Hemoglobin 28.3 PG Mean Corpuscular Hemoglobin 32.9 % Concent Red Cell Distribution Width 16.2 % Platelet Count 159 TH/MM3 Mean Platelet Volume 9.8 FL Blood Type A POSITIVE Antibody Screen NEGATIVE Sodium Level 134 MEQ/L Potassium Level 4.3 MEQ/L Chloride Level 99 MEQ/L Carbon Dioxide Level 21.1 MEQ/L Anion Gap 14 MEQ/L Blood Urea Nitrogen 9 MG/DL Creatinine 0.78 MG/DL Estimat Glomerular Filtration 92 ML/MIN Rate Random Glucose 374 MG/DL Calcium Level 9.0 MG/DL Total Bilirubin 0.4 MG/DL Aspartate Amino Transf 18 U/L (AST/SGOT) Alanine Aminotransferase 12 U/L (ALT/SGPT) Alkaline Phosphatase 91 U/L Total Protein 6.9 GM/DL Albumin 2.7 GM/DL Laboratory Tests Test 10/31/16 10/31/16 23:00 23:12 Urine Color LIGHT-YELLOW Urine Turbidity HAZY Urine pH 5.5 Urine Specific [place] 1.031 Urine Protein TRACE mg/dL Urine Glucose (UA) 1000 mg/dL Urine Ketones 150 mg/dL Urine Occult Blood NEG Urine Nitrite NEG Urine Bilirubin NEG Urine Urobilinogen LESS THAN 2.0 MG/DL Urine Leukocyte Esterase NEG Urine RBC 1 /hpf Urine WBC 5 /hpf Urine Squamous Epithelial 12 /hpf Cells Urine Bacteria RARE /hpf Urine Mucus FEW /lpf Microscopic Urinalysis Comment CULT NOT INDICATED Fibronectin NEGATIVE Urine Opiates Screen NEG Urine Barbiturates Screen NEG Urine Amphetamines Screen NEG Urine Benzodiazepines Screen NEG Urine Cocaine Screen NEG Urine Cannabinoids Screen NEG White Blood Count 9.4 TH/MM3 Red Blood Count 4.58 MIL/MM3 Hemoglobin 13.0 GM/DL Hematocrit 39.4 % Mean Corpuscular Volume 85.9 FL Mean Corpuscular Hemoglobin 28.3 PG Mean Corpuscular Hemoglobin 32.9 % Concent Red Cell Distribution Width 16.2 % Platelet Count 159 TH/MM3 Mean Platelet Volume 9.8 FL Blood Type A POSITIVE MDM Plan 21 yo at 32w 4 days with contractions and dehydration Category 2 tracing, now category 1 after hydration Hyperglycemia with poor glycemic control Will keep 23hr obs for FHR tracing and to ensure glycemic control Will restart regimen recommended by perinatology on last consult FFN negative, cervix closed. Will not administer betamethasone at this time Repeat BPP in am Continue Keflex for prophylaxis 250mg po daily Diagnosis Diagnosis: Primary Impression: Dehydration Additional Impressions: Type 1 diabetes mellitus affecting in third trimester, antepartum Poor glycemic control High risk for intrapartum complications in third trimester Kim Whiteside MD Nov 01, 2016 00:33
[2016-11-01 02:20] LABS: MRSA PCR NEGATIVE (NEGATIVE); STAPH AUREUS PCR NEGATIVE (NEGATIVE)
[2016-11-01] MEDS: FERROUS SULFATE 325 MG (65 MG ELEMENTAL IRON) TAB PO SCH ×2 (08:00→21:02)
[2016-11-01] MEDS: MULTIVIT/MIN/PREN/FOL AC/IRON PRENATAL TAB PO SCH (08:00)
[2016-11-01] MEDS: ACETAMINOPHEN 325 MG TAB PO PRN (08:00)
[2016-11-01] MEDS: SODIUM CHLORIDE 0.9% FLUSH 10 ML FLUSH IV FLUSH SCH (08:00)
[2016-11-01] MEDS: INSULIN HUMAN NPH 1,000 UNITS/10 ML VIAL SQ SCH (08:50)
[2016-11-01] MEDS: INSULIN HUMAN REGULAR 1,000 UNITS/10 ML VIAL SQ SCH (08:50)
--- NOTE | 2016-11-01 09:28 | HHI.PR ---
Subjective Remarks Sitting comfortably in bed eating breakfast. She states the last contraction she felt was sometime overnight. Reports vague lower abdominal / pelvic pain. Reports +FM. No LOF or VB. Denies any issues urinating. Denies lightheadedness or dizziness. Objective Vital Signs Date Time Temp Pulse Resp B/P Pulse Ox O2 Delivery O2 Flow Rate FiO2 11/01/16 07:58 16 11/01/16 07:58 72 113/73 11/01/16 07:58 97.8 18 11/01/16 05:01 18 11/01/16 03:26 18 11/01/16 01:35 18 11/01/16 00:45 98.0 11/01/16 00:42 18 11/01/16 00:42 128 126/72 10/31/16 23:48 95 125/74 Result Diagram: 11/01/16 1056 11/01/16 1056 Objective Remarks GENERAL: Well-nourished, well-developed patient. SKIN: Warm and dry. HEAD: Normocephalic and atraumatic. EYES: No scleral icterus. No injection or drainage. ENT: No nasal drainage noted. Mucous membranes pink. Airway patent. NECK: Supple, trachea midline. CARDIOVASCULAR: Regular rate and rhythm without murmurs, gallops, or rubs. RESPIRATORY: Breath sounds equal bilaterally. No accessory muscle use. ABDOMEN/GI: Abdomen soft, non-tender, bowel sounds present, no rebound, no guarding Gravid to [-] weeks size Fundal Height: [-] GENITOURINARY: External Genitalia: [-] BUS glands: [-] Cervix: [-] Dilatation: [-] Effacement: [-] Station: [-] Presentation: [-] Membranes: [-] Uterine Contractions: Irregular on tocometer FHT's: Category: II Baseline: 130s Reactive: yes Variability: moderate Decels: Intermittent variable decelerations EXTREMITIES: No cyanosis or edema. BACK: Nontender without obvious deformity. NEUROLOGICAL: Awake and alert. Motor and sensory grossly within normal limits. Normal speech. Assessment and Plan Problem List: (1) Type 1 diabetes mellitus affecting in third trimester, antepartum Status: Acute (2) Dehydration Status: Acute (3) Poor glycemic control Status: Acute (4) High risk for intrapartum complications in third trimester Status: Acute Assessment and Plan Patient is a 21 year old with limited care and poorly controlled T1DM due to poor adherence to medication regimen who is at 32/5 weeks gestation admitted yesterday due to dehydration, contractions, and hyperglycemia. 1. IUP complicated by poorly controlled T1DM - Continue Insulin regimen with NPH 20 units in the morning and 14 units at night; and Insulin regular 10 units with breakfast, 8 units with lunch, and 8 units with dinner - Morning bedside glucose 161 - Continue IVF hydration - FFN yesterday was negative - Repeat BPP this AM 03/20 - Continue Keflex 250 mg po daily for prophylaxis - Repeat CBC, BMP, and UA today - Continue observation until blood glucoses are better controlled dw Dr. Whiteside Collaborating MD Comments Agree with management Category 2 tracing occurred at the time of admission. Reverted to category 1 tracing after approx 500cc LR bolus and has remained Category 1 since admission. Donny Cruz MD R1 Nov 01, 2016 09:28 Kim Whiteside MD Nov 03, 2016 20:58
[2016-11-01 11:14] LABS: HEMATOCRIT 35.7 % (35.0-46.0); MEAN CELL VOLUME 85.9 FL (80.0-100.0); MEAN CORPUSCULAR HEMOGLOBIN 28.1 PG (27.0-34.0); MEAN CORPUSCULAR HGB CONC 32.7 % (32.0-36.0); PLATELET COUNT 146 TH/MM3 (150-450); RED BLOOD COUNT 4.16 MIL/MM3 (4.00-5.30); RED CELL DISTRIBUTION WIDTH 15.9 % (11.6-17.2); REVIEW FLAG FINAL; WHITE BLOOD COUNT 8.9 TH/MM3 (4.0-11.0)
[2016-11-01 11:35] LABS: BICARBONATE 19.5 MEQ/L (21.0-32.0); POTASSIUM 3.8 MEQ/L (3.5-5.1)
[2016-11-01] MEDS ORDERED: INSULIN HUMAN REGULAR 1,000 UNITS/10 ML VIAL SQ SCH ×3 (12:00→17:00)
[2016-11-01 13:53] LABS: BLOOD, URINE NEG (NEG); COMMENT (UR) CULT NOT INDICATED; CULTURE IF INDICATED CULT NOT INDICATED; GLUCOSE,URINE NEG (NEG); KETONE, URINE 40 mg/dL (NEG); MUCUS URINE FEW /lpf (OCC); NITRITE,URINE NEG (NEG); SQUAMOUS EPITHELIAL CELL URINE 2 /hpf (0-5); URINE COLOR YELLOW (YELLW/STRAW)
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
[2016-11-01] MEDS: FLUTICASONE PROPIONATE 50 MCG/ACT 16 GM NASAL SPRAY SCH (19:15)
[2016-11-01] MEDS ORDERED: INSULIN HUMAN NPH 1,000 UNITS/10 ML VIAL SQ SCH (21:00)
[2016-11-02 01:54] VITALS: RESP 18; TEMP 97.8
[2016-11-02 01:55] VITALS: BP 114/74; PULSE 112
[2016-11-02 04:00] VITALS: RESP 18
[2016-11-02] MEDS: ACETAMINOPHEN 325 MG TAB PO PRN (04:50)
[2016-11-02 07:13] VITALS: BP 118/62; PULSE 76; TEMP 97.9
[2016-11-02 07:19] VITALS: RESP 18
[2016-11-02] MEDS: LACTATED RINGER'S 1000 ML INJ 1,000 ML IV SCH (07:35)
--- NOTE | 2016-11-02 08:17 | PD.OB.ANTE ---
Subjective Diagnosis: (1) Type 1 diabetes mellitus affecting in third trimester, antepartum Diagnosis: Principal (2) High risk for intrapartum complications in third trimester Diagnosis: Principal (3) Poor glycemic control Diagnosis: Principal (4) Dehydration Diagnosis: Principal Interval History Resting comfortably in bed. Denies any contractions. Denies pain. Reports +FM. No LOF or VB. Denies any issues urinating. Denies lightheadedness or dizziness. She is otherwise without complaints or concerns. Antepartum ROS: Reports: movement normal, Denies: New complaints, Loss of fluid, Vaginal bleeding, Contractions Objective Vital Signs Vital Signs Date Time Temp Pulse Resp B/P Pulse Ox O2 Delivery O2 Flow Rate FiO2 11/02/16 07:19 18 11/02/16 07:13 76 118/62 11/02/16 07:13 97.9 11/02/16 04:00 18 11/02/16 01:55 112 114/74 11/02/16 01:54 97.8 18 11/01/16 23:36 18 11/01/16 19:25 98.0 18 11/01/16 19:22 94 121/71 11/01/16 17:00 18 11/01/16 16:38 97.9 11/01/16 16:28 89 117/66 11/01/16 12:00 97.9 16 11/01/16 12:00 77 117/75 Lab & Micro Results Test 11/01/16 11/01/16 10:56 12:26 White Blood Count 8.9 TH/MM3 Red Blood Count 4.16 MIL/MM3 Hemoglobin 11.7 GM/DL Hematocrit 35.7 % Mean Corpuscular Volume 85.9 FL Mean Corpuscular Hemoglobin 28.1 PG Mean Corpuscular Hemoglobin 32.7 % Concent Red Cell Distribution Width 15.9 % Platelet Count 146 TH/MM3 Mean Platelet Volume 9.5 FL Sodium Level 136 MEQ/L Potassium Level 3.8 MEQ/L Chloride Level 107 MEQ/L Carbon Dioxide Level 19.5 MEQ/L Anion Gap 10 MEQ/L Blood Urea Nitrogen 6 MG/DL Creatinine 0.50 MG/DL Estimat Glomerular Filtration 153 ML/MIN Rate Random Glucose 113 MG/DL Calcium Level 8.4 MG/DL Urine Color YELLOW Urine Turbidity CLEAR Urine pH 6.0 Urine Specific [place] 1.012 Urine Protein NEG mg/dL Urine Glucose (UA) NEG mg/dL Urine Ketones 40 mg/dL Urine Occult Blood NEG Urine Nitrite NEG Urine Bilirubin NEG Urine Urobilinogen LESS THAN 2.0 MG/DL Urine Leukocyte Esterase TRACE Urine RBC 1 /hpf Urine WBC 2 /hpf Urine Squamous Epithelial 2 /hpf Cells Urine Mucus FEW /lpf Microscopic Urinalysis Comment CULT NOT INDICATED Physical Exam GENERAL: Well-nourished, well-developed patient. SKIN: Warm and dry. HEAD: Normocephalic and atraumatic. EYES: No scleral icterus. No injection or drainage. ENT: No nasal drainage noted. Mucous membranes pink. Airway patent. NECK: Supple, trachea midline. CARDIOVASCULAR: Regular rate and rhythm without murmurs, gallops, or rubs. RESPIRATORY: Breath sounds equal bilaterally. No accessory muscle use. ABDOMEN/GI: Abdomen soft, non-tender, bowel sounds present, no rebound, no guarding Gravid to 32 weeks size GENITOURINARY: External Genitalia: [-] BUS glands: [-] Cervix: [-] Dilatation: [-] Effacement: [-] Station: [-] Presentation: [-] Membranes: [-] Uterine Contractions: Irregular on tocometer FHT's: Category: II Baseline: 130s Reactive: yes Variability: moderate Decels: Intermittent variable decelerations EXTREMITIES: No cyanosis or edema. BACK: Nontender without obvious deformity. NEUROLOGICAL: Awake and alert. Motor and sensory grossly within normal limits. Normal speech. Assessment and Plan Problem List: (1) Type 1 diabetes mellitus affecting in third trimester, antepartum Status: Acute (2) High risk for intrapartum complications in third trimester Status: Acute (3) Poor glycemic control Status: Acute (4) Dehydration Status: Acute Assessment and Plan Patient is a 21 year old with limited care and poorly controlled T1DM due to poor adherence to medication regimen who is at 32/6 weeks gestation admitted due to dehydration, contractions, and hyperglycemia. 1. IUP complicated by poorly controlled T1DM - Continue Insulin regimen with NPH 20 units in the morning and 14 units at night; and Insulin regular 10 units with breakfast, 8 units with lunch, and 8 units with dinner - Accuchecks ranging 74-141 - Continue IVF hydration - FFN from 10/31 was negative - BPP 11/01 was 8/ - Continue Keflex 250 mg po daily for prophylaxis wdw Donny Alexandra MD R1 Nov 02, 2016 08:17
[2016-11-02] MEDS: MULTIVIT/MIN/PREN/FOL AC/IRON PRENATAL TAB PO SCH (08:56)
[2016-11-02] MEDS: FERROUS SULFATE 325 MG (65 MG ELEMENTAL IRON) TAB PO SCH (08:56)
[2016-11-02] MEDS: INSULIN HUMAN REGULAR 1,000 UNITS/10 ML VIAL SQ SCH (08:57)
[2016-11-02] MEDS: INSULIN HUMAN NPH 1,000 UNITS/10 ML VIAL SQ SCH (08:57)
[2016-11-02] MEDS: SODIUM CHLORIDE 0.9% FLUSH 10 ML FLUSH IV FLUSH SCH (09:00)
[2016-11-02] MEDS: FLUTICASONE PROPIONATE 50 MCG/ACT 16 GM NASAL SPRAY SCH (09:00)
[2016-11-02] MEDS ORDERED: NOVONP2 SQ ×2 (09:04)
[2016-11-02] MEDS ORDERED: NOVORP2 SQ ×3 (09:04)
[2016-11-02] MEDS ORDERED: PREN29TA PO (09:04)
[2016-11-02] MEDS ORDERED: FERR325T PO (09:04)
[2016-11-02] MEDS ORDERED: CEPH250C PO (09:04)
--- NOTE | 2016-11-02 09:04 | HHI.DCPOC ---
Discharge Care Plan Diagnosis: (1) Type 1 diabetes mellitus affecting in third trimester, antepartum (2) High risk for intrapartum complications in third trimester (3) Poor glycemic control (4) Dehydration Goals to Promote Your Health * To prevent worsening of your condition and complications * To maintain your health at the optimal level Directions to Meet Your Goals Take your medications as prescribed Follow your dietary instruction Follow activity as directed Keep your appointments as scheduled Take your immunizations and boosters as scheduled If your symptoms worsen call your PCP, if no PCP go to Urgent Care Center or Emergency Room Smoking is Dangerous to Your Health. Avoid second hand smoke Call the 24-hour hour crisis hotline for domestic abuse at Donny Cruz MD R1 Nov 02, 2016 09:04
[2016-12-01] MEDS ORDERED: VENTAER INH (09:59)
[2016-12-01] MEDS ORDERED: PEN31MIS2 (10:20)
[2016-12-01] MEDS ORDERED: ONETTES4 (10:22)
[2016-12-01] MEDS ORDERED: NOVORP2 SQ (10:22)
== END 2016-11-02 10:20 | disposition home or self-care (01) ==
LOC: HOBED 22:27 → H2EA 11-01 00:11
PROVIDERS: ADMIT Obstetrics & Gynecology Obstetrics; ATTEND Obstetrics & Gynecology Obstetrics
DX: E86.0 Dehydration (principal); O24.013 Pre-existing type 1 diabetes mellitus, in pregnancy, third trimester; E10.65 Type 1 diabetes mellitus with hyperglycemia; O09.33 Supervision of pregnancy with insufficient antenatal care, third trimester; O99.283 Endocrine, nutritional and metabolic diseases complicating pregnancy, third trimester; O99.343 Other mental disorders complicating pregnancy, third trimester; O99.513 Diseases of the respiratory system complicating pregnancy, third trimester; O47.03 False labor before 37 completed weeks of gestation, third trimester; J45.909 Unspecified asthma, uncomplicated; O99.013 Anemia complicating pregnancy, third trimester; O09.293 Supervision of pregnancy with other poor reproductive or obstetric history, third trimester; F43.12 Post-traumatic stress disorder, chronic; Z3A.32 32 weeks gestation of pregnancy; Z79.4 Long term (current) use of insulin; Z88.1 Allergy status to other antibiotic agents; Z88.8 Allergy status to other drugs, medicaments and biological substances; Z91.018 Allergy to other foods
CPT/HCPCS: 76819; 80048; 80053; 80307; 81001; 82731; 82948; 85027; 86850; 86900; 86901; 87640; 87641; 96360; 96372; 99284; G0378; J1815; J3105; J7120

== ENCOUNTER 2016-11-07 11:07 | Observation (INO) | payer MEDICAID ==
[2016-11-07] VITALS (9 sets, daily range): BP systolic 125–141; BP diastolic 77–87; PULSE 73–81; RESP 16–18; TEMP 97.6–98.6
[~2016-11-07 11:07] MED LIST changes: +CEPH250C PO; +NOVORP2 SQ; +PREN29TA PO
[2016-11-07] MEDS: LACTATED RINGER'S 1000 ML INJ 1,000 ML IV SCH ×2 (11:31→13:29)
[2016-11-07 11:48] LABS: BACTERIA, URINE MOD /hpf; BLOOD, URINE NEG (NEG); COMMENT (UR) CULTURE INDICATED; CULTURE IF INDICATED CULTURE INDICATED; GLUCOSE,URINE 1000 mg/dL (NEG); KETONE, URINE 150 mg/dL (NEG); MUCUS URINE FEW /lpf (OCC); NITRITE,URINE NEG (NEG); PH, URINE 6.5 (5.0-8.5); SQUAMOUS EPITHELIAL CELL URINE 29 /hpf (0-5); URINE COLOR YELLOW (YELLW/STRAW)
[2016-11-07 12:32] LABS: HEMATOCRIT 40.4 % (35.0-46.0); MEAN CELL VOLUME 86.2 FL (80.0-100.0); MEAN CORPUSCULAR HEMOGLOBIN 27.3 PG (27.0-34.0); MEAN CORPUSCULAR HGB CONC 31.7 % (32.0-36.0); PLATELET COUNT 186 TH/MM3 (150-450); RED BLOOD COUNT 4.68 MIL/MM3 (4.00-5.30); RED CELL DISTRIBUTION WIDTH 16.3 % (11.6-17.2); REVIEW FLAG FINAL
[2016-11-07 12:43] LABS: BLOOD UREA NITROGEN 7 MG/DL (7-18); GLOMERULAR FILTRATION RATE 129 ML/MIN (>89)
[2016-11-07 12:44] LABS: ANION GAP 12 MEQ/L (5-15); AST (GOT) 22 U/L (15-37); BICARBONATE 23.3 MEQ/L (21.0-32.0); CHLORIDE 100 MEQ/L (98-107); POTASSIUM 4.2 MEQ/L (3.5-5.1); SODIUM (NA) 135 MEQ/L (136-145); URIC ACID 4.3 MG/DL (2.6-6.0)
[2016-11-07 12:47] LABS: ALKALINE PHOSPHATASE 110 U/L (45-117); ALT (GPT) 20 U/L (10-53); TOTAL BILIRUBIN ADULT 0.3 MG/DL (0.2-1.0)
[2016-11-07] MEDS ORDERED: INSULIN HUMAN REGULAR 1,000 UNITS/10 ML VIAL SQ ONE (13:15)
--- NOTE | 2016-11-07 13:22 | HHI.HP ---
History & Physical H&P Travel History International Travel<30 Days: No Contact w/Intl Traveler<30Days: No Known Affected Area: No History of Present Illness HPI This patient is a 21-year-old 3 para 0 her EDC is December 22, 2016 presently at 33 weeks and 4 days she has a history of brittle insulin-dependent diabetes having twice weekly testing with OB diagnostics and maternal medicine she was in today for a biophysical profile Polyhydramnios is present with an ANNALEE of 36 baby is active and the cervix was short measuring 2.5 cm Presently having some irregular contractions which the patient says that she feels no ruptured membranes no vaginal bleeding the baby is active patient does not know how much insulins she is on and also did not bring in a log of her blood sugars She is sent to triage for evaluation of possible labor The last documentation indicates that the patient was taking NPH 20 units in the a.m. 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 Type 1 diabetes asthma Obstetric History Obstetric History Spontaneous AB 2 no D&C done Past Surgical History Narrative Surgical Surgery on her skull as a baby Family History Family History: Negative Social History Alcohol Use: No Tobacco Use: No Substance Abuse: No Allergies-Medications Allergies-Medications (Allergen,Severity, Reaction): Coded Allergies: Macrobid (Verified Allergy, Severe, Rash, 11/01/16) Naproxen (Verified Allergy, Severe, Hypotension, 11/01/16) Coconut (Verified Allergy, Intermediate, Rash, 11/01/16) *MDRO Multi-Drug Resistant Organism (Verified Adverse Reaction, Unknown, ) MRSA PCR Screen POSITIVE - 02/24/2015 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 ESBL+E.Coli (urine) - 07/2015 Home Meds Active Scripts Insulin Human Regular Inj (Novolin R Inj)1,000 Unit/10 Ml Vial8 Units SQ DAILY@ 17 #30 INJECTION Prov:Donny Cruz MD R1 11/02/16 Insulin Human Regular Inj (Novolin R Inj)1,000 Unit/10 Ml Vial10 Units SQ DAILY@ 08 #31 INJECTION Prov:Donny Cruz MD R1 11/02/16 Insulin Human Regular Inj (Novolin R Inj)1,000 Unit/10 Ml Vial8 Units SQ DAILY@ 12 #30 INJECTION Prov:Donny Cruz MD R1 11/02/16 Insulin Human NPH Inj (Novolin N Inj)1,000 Unit/10 Ml Vial14 Units SQ HS #30 INJECTION Prov:Donny Cruz MD R1 11/02/16 Insulin Human NPH Inj (Novolin N Inj)1,000 Unit/10 Ml Vial20 Units SQ DAILY@08 #30 INJECTION Prov:Donny Cruz MD R1 11/02/16 Ferrous Sulfate 325 Mg [id number] Mg PO BID #60 TAB Prov:Donny Cruz MD R1 11/02/16 Cephalexin 250 Mg [id number] Mg PO DAILY@2100 #30 CAP Prov:Donny Cruz MD R1 11/02/16 Vit-Iron Carbonyl ( Plus Iron 29-1 mg)1 Tab Tab1 Tab PO DAILY #30 TAB Prov:Donny Cruz MD R1 11/02/16 Ferrous Sulfate 325 Mg [id number] Mg PO BID #60 TAB Ref 3 Prov:Debby Griffiths MD R1 10/12/16 Cephalexin 500 Mg [id number] Mg PO HS #30 CAP Ref 3 Prov:Debby Griffiths MD R1 10/12/16 Insulin Aspart Inj (Novolog Inj)1,000 Unit/10 Ml Vial12 Units SQ DAILY@18 #1 BOX Take Novolog as prescribed: 14 UNITS AT 8AM, 12 UNITS AT 12PM, 12 UNITS AT 6PM. Prov:Debby Griffiths MD R1 10/12/16 Insulin Aspart Inj (Novolog Inj)1,000 Unit/10 Ml Vial14 Units SQ DAILY@08 #1 BOX Take Novolog as prescribed: 14 UNITS AT 8AM, 12 UNITS AT 12PM, 12 UNITS AT 6PM. Prov:Debby Griffiths MD R1 10/12/16 Insulin Aspart Inj (Novolog Inj)1,000 Unit/10 Ml Vial12 Units SQ DAILY@12 #1 BOX Take Novolog as prescribed: 14 UNITS AT 8AM, 12 UNITS AT 12PM, 12 UNITS AT 6PM. Prov:Debby Griffiths MD R1 10/12/16 Insulin Human NPH Inj (Novolin N Inj)1,000 Unit/10 Ml Vial18 Units SQ DAILY@21 #1 BOX Take 24 UNITS at 8AM, and 18 UNITS at 9PM Prov:Debby Griffiths MD R1 10/12/16 Insulin Human NPH Inj (Novolin N Inj)1,000 Unit/10 Ml Vial24 Units SQ DAILY@08 #1 BOX Take 24 UNITS at 8AM, and 18 UNITS at 9PM Prov:Debby Griffiths MD R1 10/12/16 Pen [place]by 31G X 1/4" Sh 31G X 6 mm 1 Mis Mis #3 Box .route As Directed Prov:Debby Griffiths MD R1 10/12/16 Albuterol Sulfate 8 GM Inhaler (Ventolin Hfa)8 Gm Aero2 Puff INH Q6 PRN ( WHEEZING) #1 BOX * SHAKE WELL BEFORE USE * Prov:Carlota Hagen MD 12/28/15 Glucometer Test Strips Box #1 BOX XX QID Ref 1 Prov:Fay Lozano MD 11/23/15 ROS Review of Systems General / Constitutional: No: Fever, Weight Gain, Weight Loss, Chills, Other Eyes: No: Diploplia, Blurred Vision, Visual changes, Pain, Photophobia, Other HENT: No: Headaches, Vertigo, Dental Difficulties, Lightheadedness, Other Gastrointestinal: Abdominal Pain (irregular contractions) Genitourinary: No: Urgency, Frequency, Dysuria, Nocturia, Hematuria, Decreased Urinary Output, Oliguria, Hesitancy, Dribbling, Incontinence, Pelvic Pain, Dyspareunia, Discharge, Menorrhagia, Vaginal Bleeding, Other Musculoskeletal: No: Limited ROM, Weakness, Cramping, Edema, Pain, Other Physical Exam Physical Exam Narrative GENERAL: Well-nourished, well-developed patient. Alert oriented 3 and cooperative in no acute distress SKIN: Warm and dry. HEAD: Normocephalic and atraumatic. EYES: No scleral icterus. No injection or drainage. ENT: No nasal drainage noted. Mucous membranes pink. Airway patent. NECK: Supple, trachea midline. No JVD. CARDIOVASCULAR: Regular rate and rhythm without murmurs, gallops, or rubs. RESPIRATORY: Breath sounds equal bilaterally. No accessory muscle use. ABDOMEN/GI: Gravid size greater than date secondary to the polyhydramnios mild palpable contractions Gravid to [-] weeks size size greater than dates Fundal Height: [-] GENITOURINARY: Speculum exam no fluid no blood per vagina the os is visibly closed bimanual exam cervix is about 50% effaced external os is fingertip internal os is closed the vertex is ballotable External Genitalia: intact and normal in appearance BUS glands: [-] Cervix: [-]50% slightly posterior Dilatation: [-] 0 Effacement: [-] 50% Station: [-] Ballotable Presentation: [-] Vertex Membranes: [intact Uterine Contractions: [-] Irregular FHT's: Category: [-]1 Baseline: [-]140 Reactive: [-]+ Variability: [-] Moderate Decels: [-] 0 EXTREMITIES: No cyanosis or edema.2+ NEUROLOGICAL: Awake and alert. Motor and sensory grossly within normal limits. Five out of 5 muscle strength in all muscle groups. Normal speech. Data Data Data Vital Signs Reviewed: Yes (blood pressures 128/92 pulse is 83 she is afebrile) Orders Vital Signs (Adult) .ON ADMISSION (11/07/16 11:25) ^ Labor Status (11/07/16 11:25) Urinalysis - C+S If Indicated (11/07/16 11:25) ^ Hydration (11/07/16 11:25) Fibronectin (11/07/16 11:25) Vital Signs (Adult) .ON ADMISSION (11/07/16 11:31) ^ Labor Status (11/07/16 11:31) ^ Hydration (11/07/16 11:31) Cbc No Diff, Includes Plts (11/07/16 11:31) Comprehensive Metabolic Panel (11/07/16 11:31) Uric Acid (11/07/16 11:31) Lactated Ringer's 1000 Ml Inj (Lr 1000 M (11/07/16 11:31) Ob/Psych Drug Screen, Urine (11/07/16 11:31) Protein Creat Ratio, Random Ur (11/07/16 11:31) MDM MDM Medical Record Reviewed: Yes Interpretation(s) 21-year-old at 33 weeks and 4 days Type 1 diabetes Polyhydramnios Noncompliance Rule out labor Narrative Course / MDM Spoke with MFM patient having some irregular contractions will IV fluid hydrate She has not had anything to eat this morning fingerstick demonstrates glucose level of 200 Will give the patient her lunch her lunch dose of insulins 8 units of regular will do a 2 hour postprandial This to keep the patient on schedule with her insulins dosages If the contractions resolved with IV fluid hydration and the fibronectin is negative Will discharge the patient home to continue her insulins management If however the contractions continue and fibronectin is positive we'll admit for tocolyse this Labs have been reviewed The fibronectin is negative Contractions have spaced out with IV hydration Patient's blood sugar was 200 As she is had nothing to eat we gave her her lunch she had an episode of vomiting She did get 8 units of Regular Insulin for her lunch Will admit the patient for 24-hour observation to check her fasting and two- hour postprandials putting her back on her regular insulins regiment on the diabetic diet To see if we can get her under better control Spoke with MFM and they agree with this plan Plan External monitoring IV fluid hydration CBC CMP uric acid protein to creatinine ratio Urinalysis urine drug screen fibronectin Fingerstick Reevaluation Diagnosis Diagnosis: Primary Impression: 35 weeks gestation of Additional Impressions: Type 1 diabetes mellitus affecting in first trimester, antepartum Polyhydramnios affecting Shellie Hill MD Nov 07, 2016 11:41 Shellie Hill MD Nov 07, 2016 13:22
[2016-11-07] MEDS ORDERED: ONDANSETRON HCL 4 MG/2 ML VIAL IV PUSH PRN (13:45)
[2016-11-07 14:23] LABS: AMPHETAMINE, URINE NEG (NEG); BARBITURATES, URINE NEG (NEG); COCAINE, URINE NEG (NEG)
[2016-11-07] MEDS ORDERED: INSULIN HUMAN REGULAR 1,000 UNITS/10 ML VIAL SQ SCH (17:00)
--- NOTE | 2016-11-07 18:25 | HHI.PR ---
Subjective Remarks Patient continues to complain of irregular contractions Baby is very active Objective - Cervix checked it is unchanged from admission Ultrasound showed 2.5 cm fibronectin is negative Monitor demonstrates irregular contractions Vital Signs Date Time Temp Pulse Resp B/P Pulse Ox O2 Delivery O2 Flow Rate FiO2 11/07/16 15:38 98.1 11/07/16 15:38 18 11/07/16 15:37 73 141/87 Result Diagram: 11/07/16 1145 11/07/16 1145 A/P Assessment and Plan contractions secondary to polyhydramnios most likely Plan; Will start patient on Procardia 10 mg by mouth 3 times a day Reevaluation Continue fasting and two-hour postprandials Shellie Hill MD Nov 07, 2016 18:25
[2016-11-07] MEDS: NIFEdipine 10 MG CAP PO SCH (19:16)
[2016-11-07] MEDS ORDERED: INSULIN HUMAN NPH 1,000 UNITS/10 ML VIAL SQ SCH (21:00)
[2016-11-07] MEDS ORDERED: NIFEdipine 10 MG CAP PO SCH (22:00)
[2016-11-08] MEDS ORDERED: NIFEdipine 10 MG CAP PO ONE
[2016-11-08 03:40] VITALS: BP 109/72; PULSE 74
[2016-11-08 03:42] VITALS: RESP 16; TEMP 97.7
[2016-11-08] MEDS ORDERED: INSULIN HUMAN REGULAR 1,000 UNITS/10 ML VIAL SQ SCH (08:00)
[2016-11-08] MEDS ORDERED: INSULIN HUMAN NPH 1,000 UNITS/10 ML VIAL SQ SCH ×3 (08:00→21:00)
--- NOTE | 2016-11-08 08:28 | PD.OB.ANTE ---
Subjective Diagnosis: (1) Type 1 diabetes mellitus affecting in third trimester, antepartum Diagnosis: Principal (2) Polyhydramnios affecting Diagnosis: Principal (3) High risk for intrapartum complications in third trimester Diagnosis: Principal (4) Poor glycemic control Diagnosis: Principal Interval History Patient is resting comfortably in bed this morning. She states she does not have any complaints, concerns, or questions at this time. She states she did vomit once after lunch yesterday but tolerated dinner well. Has not yet had breakfast today. Reports +FM. Denies LOF or VB. She continues to report feeling contractions, occurring throughout yesterday and this morning. Denies lightheadedness, dizziness, f/c, urinary symptoms. Antepartum ROS: Reports: movement normal, Contractions, Denies: New complaints, Loss of fluid, Vaginal bleeding Objective Vital Signs Vital Signs Date Time Temp Pulse Resp B/P Pulse Ox O2 Delivery O2 Flow Rate FiO2 11/08/16 03:42 97.7 16 11/08/16 03:40 74 109/72 11/07/16 23:58 98.1 16 11/07/16 23:56 73 127/77 11/07/16 20:14 98.6 18 11/07/16 20:11 81 125/78 11/07/16 18:33 81 135/82 11/07/16 15:38 98.1 11/07/16 15:38 18 11/07/16 15:37 73 141/87 11/07/16 14:15 97.6 18 11/07/16 14:01 78 138/85 Lab & Micro Results Test 11/07/16 11/07/16 11/07/16 11:05 11:20 11:45 Urine Color YELLOW Urine Turbidity HAZY Urine pH 6.5 Urine Specific [place] 1.018 Urine Protein TRACE mg/dL Urine Glucose (UA) 1000 mg/dL Urine Ketones 150 mg/dL Urine Occult Blood NEG Urine Nitrite NEG Urine Bilirubin NEG Urine Urobilinogen LESS THAN 2.0 MG/DL Urine Leukocyte Esterase MOD Urine RBC 1 /hpf Urine WBC 11 /hpf Urine Squamous Epithelial 29 /hpf Cells Urine Bacteria MOD /hpf Urine Mucus FEW /lpf Microscopic Urinalysis Comment CULTURE INDICATED Urine Random Creatinine 51 MG/DL Urine Random Total Protein 35 MG/DL Urine Protein/Creatinine Ratio 0.69 Urine Opiates Screen NEG Urine Barbiturates Screen NEG Urine Amphetamines Screen NEG Urine Benzodiazepines Screen NEG Urine Cocaine Screen NEG Urine Cannabinoids Screen NEG Fibronectin NEGATIVE White Blood Count 12.0 TH/MM3 Red Blood Count 4.68 MIL/MM3 Hemoglobin 12.8 GM/DL Hematocrit 40.4 % Mean Corpuscular Volume 86.2 FL Mean Corpuscular Hemoglobin 27.3 PG Mean Corpuscular Hemoglobin 31.7 % Concent Red Cell Distribution Width 16.3 % Platelet Count 186 TH/MM3 Mean Platelet Volume 9.7 FL Sodium Level 135 MEQ/L Potassium Level 4.2 MEQ/L Chloride Level 100 MEQ/L Carbon Dioxide Level 23.3 MEQ/L Anion Gap 12 MEQ/L Blood Urea Nitrogen 7 MG/DL Creatinine 0.58 MG/DL Estimat Glomerular Filtration 129 ML/MIN Rate Random Glucose 197 MG/DL Uric Acid 4.3 MG/DL Calcium Level 8.8 MG/DL Total Bilirubin 0.3 MG/DL Aspartate Amino Transf 22 U/L (AST/SGOT) Alanine Aminotransferase 20 U/L (ALT/SGPT) Alkaline Phosphatase 110 U/L Total Protein 7.1 GM/DL Albumin 2.5 GM/DL Band and Hold Date/Time Procedure Status Source Growth 11/07/16 11:05 Urine Culture Received Urine Clean Catch Pending Physical Exam GENERAL: Well-nourished, well-developed patient. CARDIOVASCULAR: Regular rate and rhythm without murmurs, gallops, or rubs. RESPIRATORY: Breath sounds equal bilaterally. No accessory muscle use. ABDOMEN/GI: Abdomen soft, non-tender. Fundus: [-] GENITOURINARY: External Genitalia: intact and normal in appearance Cervix: [-] Dilatation: [-] Effacement: [-] Station: [-] Presentation: [-] Membranes: [-] Uterine Contractions: Irregular FHT's: Category: I Baseline: 140s Reactive: yes Variability: mod Decels: none EXTREMITIES: No cyanosis or edema, non-tender, without signs of DVT. Assessment and Plan Problem List: (1) Type 1 diabetes mellitus affecting in third trimester, antepartum Status: Acute (2) Polyhydramnios affecting Status: Acute (3) High risk for intrapartum complications in third trimester Status: Acute (4) Poor glycemic control Status: Acute Assessment and Plan Patient is a 21 year old at 33/5 weeks gestation with poorly controlled insulin-dependent DM admitted for observation due to polyhydramnios with an ANNALEE of 36 and a short cervix measuring 2.5 cm. - fibronectin was negative - Still having irregular contractions - Continue IVF hydration - Continue Procardia 10 mg po tid - Continuous electronic monitoring - Bedside glucoses ranging 152-200 - Continue insulin regimen with NPH 22 units in the AM and 16 units at night, and regular 10 units with meals - Anticipate discharge with resolution of contractions dw Donny Rodriguez MD R1 Nov 08, 2016 08:28
[2016-11-08 08:31] VITALS: BP 122/68; PULSE 68
[2016-11-08 08:32] VITALS: RESP 18; TEMP 97.8
[2016-11-08] MEDS: NIFEdipine 10 MG CAP PO SCH ×3 (12:00→20:00)
[2016-11-08] MEDS: LACTATED RINGER'S 1000 ML INJ 1,000 ML IV SCH (14:14)
[2016-11-08] MEDS ORDERED: MULTIVIT/MIN/PREN/FOL AC/IRON PRENATAL TAB PO SCH (14:30)
[2016-11-08 19:15] VITALS: BP 142/85; PULSE 77; RESP 18; TEMP 98
[2016-11-08] MEDS: INSULIN ASPART 1,000 UNITS/10 ML VIAL SQ SCH (19:45)
[2016-11-08 22:36] VITALS: BP 122/87; PULSE 82
[2016-11-09] MEDS: NIFEdipine 10 MG CAP PO SCH ×2 (04:00→11:43)
[2016-11-09 06:01] VITALS: BP 140/88; PULSE 69
[2016-11-09 06:09] VITALS: RESP 18; TEMP 97.9
--- NOTE | 2016-11-09 08:21 | PD.OB.ANTE ---
Subjective Diagnosis: (1) Type 1 diabetes mellitus affecting in third trimester, antepartum Diagnosis: Principal (2) Polyhydramnios affecting Diagnosis: Principal (3) High risk for intrapartum complications in third trimester Diagnosis: Principal (4) Poor glycemic control Diagnosis: Principal Interval History Patient is doing well this morning. She states she does not have any complaints , concerns, or questions. Tolerating diet well without nausea or vomiting. Reports +FM. Denies LOF or VB. Denies feeling any contractions for over 24 hours. Denies lightheadedness, dizziness, f/c, urinary symptoms. Antepartum ROS: Reports: movement normal, Denies: New complaints, Loss of fluid, Vaginal bleeding, Contractions Objective Vital Signs Vital Signs Date Time Temp Pulse Resp B/P Pulse Ox O2 Delivery O2 Flow Rate FiO2 11/09/16 06:09 97.9 18 11/09/16 06:01 69 140/88 11/08/16 22:36 82 122/87 11/08/16 19:15 77 142/85 11/08/16 19:15 98.0 18 11/08/16 08:32 97.8 18 11/08/16 08:31 68 122/68 Lab & Micro Results Date/Time Procedure Status Source Growth 11/07/16 11:05 Urine Culture - Preliminary Resulted Urine Clean Catch NO GROWTH IN 24 HOURS. Physical Exam GENERAL: Well-nourished, well-developed patient. CARDIOVASCULAR: Regular rate and rhythm without murmurs, gallops, or rubs. RESPIRATORY: Breath sounds equal bilaterally. No accessory muscle use. ABDOMEN/GI: Abdomen soft, non-tender. Fundus: [-] GENITOURINARY: External Genitalia: [-] Cervix: [-] Dilatation: [-] Effacement: [-] Station: [-] Presentation: [-] Membranes: [-] Uterine Contractions: Irregular FHT's: Category: I Baseline: 140s Reactive: yes Variability: mod Decels: none EXTREMITIES: No cyanosis or edema, non-tender, without signs of DVT. Assessment and Plan Problem List: (1) Type 1 diabetes mellitus affecting in third trimester, antepartum Status: Acute (2) Polyhydramnios affecting Status: Acute (3) High risk for intrapartum complications in third trimester Status: Acute (4) Poor glycemic control Status: Acute Assessment and Plan Patient is a 21 year old at 33/5 weeks gestation with poorly controlled insulin-dependent DM admitted for observation due to polyhydramnios with an ANNALEE of 36 and a short cervix measuring 2.5 cm. - fibronectin was negative - Irregular contractions - Continue IVF hydration - Continue Procardia 10 mg po tid - NST today - Bedside glucoses ranging 66-152; fasting 78 this morning - Continue insulin regimen with NPH 22 units in the AM and 16 units at night, and regular 10 units with meals - Stable for discharge today if NST reassuring dw OB Hospitalist Donny Cruz MD R1 Nov 09, 2016 08:21
[2016-11-09 08:39] VITALS: BP 133/90; PULSE 79; RESP 20; TEMP 98
[2016-11-09] MEDS: INSULIN ASPART 1,000 UNITS/10 ML VIAL SQ SCH (08:45)
[2016-11-09] MEDS ORDERED: NOVONP2 SQ ×2 (12:30)
[2016-11-09] MEDS ORDERED: NOVOLOGP2 SQ (12:30)
[2016-11-09] MEDS ORDERED: PREN29TA PO (12:30)
--- NOTE | 2016-11-09 12:31 | HHI.DCPOC ---
Discharge Care Plan Diagnosis: (1) Type 1 diabetes mellitus affecting in third trimester, antepartum (2) High risk for intrapartum complications in third trimester (3) Poor glycemic control (4) Polyhydramnios affecting Report Symptoms to Your Doctor -Temperate above 100.5 degrees -Redness, of incision or excessive or foul smelling drainage -Unusual pain or calf pain -Increased vaginal bleeding -Painful or difficulty urinating -Feelings of extreme sadness or anxiety after 2 weeks Goals to Promote Your Health To maintain your health at the optimal level, take your insulin medications as prescribed and follow up with your OB provider for continued care. Directions to Meet Your Goals Take your medications as prescribed Follow your dietary instruction Follow activity as directed Ensure plenty of rest for recovery Drink fluids for hydration Keep your appointments as scheduled Take your immunizations and boosters as scheduled If your symptoms worsen call your PCP, if no PCP go to Urgent Care Center or Emergency Room Smoking is Dangerous to Your Health. Avoid second hand smoke Call the 24-hour crisis hotline for domestic abuse at Donny Cruz MD R1 Nov 09, 2016 12:31
--- NOTE | 2016-11-09 12:52 | HHI.DS ---
Discharge Summary Admission Date Nov 07, 2016 at 13:35 Discharge Date: Nov 09, 2016 Admitting Diagnosis IDDM in third trimester of Polyhydramnios Poor glycemic control Consultants None CBC/BMP: 11/07/16 1145 11/07/16 1145 Significant Findings Laboratory Tests Test 11/07/16 11/07/16 11:05 11:45 Urine Turbidity HAZY (CLEAR) Urine Glucose (UA) 1000 mg/dL (NEG) Urine Ketones 150 mg/dL (NEG) Urine Leukocyte Esterase MOD (NEG) Urine WBC 11 /hpf (0-5) Urine Bacteria MOD /hpf (NONE) Urine Mucus FEW /lpf (OCC) Urine Random Total Protein 35 MG/DL (0-11.8) Urine Protein/Creatinine Ratio 0.69 (0.00-0.14) White Blood Count 12.0 TH/MM3 (4.0-11.0) Mean Corpuscular Hemoglobin 31.7 % Concent (32.0-36.0) Sodium Level 135 MEQ/L (136-145) Random Glucose 197 MG/DL (74-106) Albumin 2.5 GM/DL (3.4-5.0) Hospital Course Patient did well while monitored in antepartum. Tolerated diet well without nausea or vomiting. No complications with the occurred; patient denied feeling any contractions, no LOF or VB occurred. Blood glucoses were well controlled with the insulin regimen she was given and discharged with; fasting blood glucose of 78 the morning before discharge. Patient was instructed to continue making her twice weekly appointments here at [facility] and continue her routine care with her OB provider. Pt Condition on Discharge: Stable Discharge Disposition: Discharge Home Discharge Instructions DIET: Follow Instructions for: Diabetic Diet Activities you can perform: Weight Bearing as Mary Kate Follow up Referrals: NEUROSURGERY PHYSICIAN - 1 Week Perinatology - 3-5 Days New Medications: Insulin Aspart Inj (Novolog Inj) 1,000 Unit/10 Ml Vial 10 UNITS SQ TIDAC Days 30 INJECTION Insulin Human NPH Inj (Novolin N Inj) 1,000 Unit/10 Ml Vial 22 UNITS SQ DAILY@08 Days 30 INJECTION Insulin Human NPH Inj (Novolin N Inj) 1,000 Unit/10 Ml Vial 16 UNITS SQ HS Days 30 INJECTION Vit-Iron Carbonyl ( Plus Iron 29-1 mg) 1 Tab Tab 1 TAB PO DAILY #30 TAB Donny Cruz MD R1 Nov 09, 2016 12:52
[2016-11-09 18:17] LABS: BATH SALTS (MDPV) UR NEG (NEG); ECSTASY (MDMA) UR NEG (NEG); HEROIN (6-ACETYLMORPHINE) UR NEG (NEG); K2 SPICE UR NEG (NEG); OBMETHADONE UR NEG (NEG); PHENCYCLIDINE URINE NEG (NEG)
[2016-11-09 18:18] LABS: OXYCODONE (PERCODAN) NEG (NEG)
[2016-12-01] MEDS ORDERED: VENTAER INH (09:59)
[2016-12-01] MEDS ORDERED: PEN31MIS2 (10:20)
[2016-12-01] MEDS ORDERED: NOVORP2 SQ (10:22)
[2016-12-01] MEDS ORDERED: ONETTES4 (10:22)
== END 2016-11-09 12:52 | disposition home or self-care (01) ==
LOC: HOBED 11:07 → H2EA 13:35
PROVIDERS: ADMIT Obstetrics & Gynecology; ATTEND Obstetrics & Gynecology
DX: O26.893 Other specified pregnancy related conditions, third trimester (principal); E10.65 Type 1 diabetes mellitus with hyperglycemia; O40.3XX0 Polyhydramnios, third trimester, not applicable or unspecified; Z3A.33 33 weeks gestation of pregnancy; O60.03 Preterm labor without delivery, third trimester; J45.909 Unspecified asthma, uncomplicated; O99.513 Diseases of the respiratory system complicating pregnancy, third trimester; Z79.4 Long term (current) use of insulin; Z16.24 Resistance to multiple antibiotics; Z91.14 Patient's other noncompliance with medication regimen
CPT/HCPCS: 80053; 80307; 81001; 82570; 82731; 82948; 84156; 84550; 85027; 87086; 96360; 96361; 96372; 99284; G0378; G0481; J1815; J3010; J7120

== ENCOUNTER 2016-11-14 17:11 | Inpatient (IN) | payer MEDICAID ==
[2016-11-14] VITALS (35 sets, daily range): BP systolic 119–145; BP diastolic 75–93; PULSE 74–91; RESP 16–20; TEMP 98.4–98.7
[2016-11-14] MEDS ORDERED: SODIUM CHLORID 0.9% 500 ML INJ 500 ML IV ONE (18:00)
[2016-11-14] MEDS ORDERED: ONDANSETRON HCL 4 MG/2 ML VIAL IV ONE ×2 (18:00)
[2016-11-14] MEDS ORDERED: ACETAMINOPHEN 325 MG TAB PO ONE (18:00)
--- NOTE | 2016-11-14 18:01 | PD ---
HPI Chief Complaint Abdominal cramping and lower extremity swelling Date Seen: Nov 14, 2016 Time Seen: 17:57 Travel History International Travel<30 Days: No Contact w/Intl Traveler<30Days: No Known Affected Area: No History of Present Illness HPI Patient is a 21-year-old patient at 34 weeks and 4 days by an ELIO of December 22, 2016. She is well known to us here at the hospital due to multiple previous admissions for pyelonephritis, recurrent urinary tract infections, insulin-dependent diabetes, and labor. Patient had an ultrasound today with a BPP of 10 out of 10 and an ANNALEE of 31.5. She began cramping earlier this morning and has complained of lower extremity edema for the past week. Insulin regimen is NPH 10 units in the morning, 10 units at lunch, 14 units at bedtime Regular 16 units in the morning, 22 units at lunch, 16 units at bedtime Patient states she's had excellent control over the past week. 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 Asthma controlled on albuterol Past Surgical History Narrative Surgical Injury on her skull necessitating surgery when she was a small child Family History Family History: Negative Social History Alcohol Use: No Tobacco Use: No Substance Abuse: No Allergies-Medications (Allergen,Severity, Reaction): Coded Allergies: Macrobid (Verified Allergy, Severe, Rash, 11/01/16) Naproxen (Verified Allergy, Severe, Hypotension, 11/01/16) Coconut (Verified Allergy, Intermediate, Rash, 11/01/16) *MDRO Multi-Drug Resistant Organism (Verified Adverse Reaction, Unknown, ) MRSA PCR Screen POSITIVE - 02/24/2015 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 ESBL+E.Coli (urine) - 07/2015 Home Meds Active Scripts Vit-Iron Carbonyl ( Plus Iron 29-1 mg)1 Tab Tab1 Tab PO DAILY #30 TAB Prov:Donny Cruz MD R1 11/09/16 Insulin Aspart Inj (Novolog Inj)1,000 Unit/10 Ml Vial10 Units SQ TIDAC 30 Days Prov:Donny Cruz MD R1 11/09/16 Insulin Human NPH Inj (Novolin N Inj)1,000 Unit/10 Ml Vial16 Units SQ HS 30 Days Prov:Donny Cruz MD R1 11/09/16 Insulin Human NPH Inj (Novolin N Inj)1,000 Unit/10 Ml Vial22 Units SQ DAILY@08 30 Days Prov:Donny Cruz MD R1 11/09/16 Insulin Human Regular Inj (Novolin R Inj)1,000 Unit/10 Ml Vial8 Units SQ DAILY@ 17 #30 INJECTION Prov:Donny Cruz MD R1 11/02/16 Insulin Human Regular Inj (Novolin R Inj)1,000 Unit/10 Ml Vial10 Units SQ DAILY@ 08 #31 INJECTION Prov:Donny Cruz MD R1 11/02/16 Insulin Human Regular Inj (Novolin R Inj)1,000 Unit/10 Ml Vial8 Units SQ DAILY@ 12 #30 INJECTION Prov:Donny Cruz MD 11/02/16 Insulin Human NPH Inj (Novolin N Inj)1,000 Unit/10 Ml Vial14 Units SQ HS #30 INJECTION Prov:Donny Cruz MD 11/02/16 Insulin Human NPH Inj (Novolin N Inj)1,000 Unit/10 Ml Vial20 Units SQ DAILY@08 #30 INJECTION Prov:Donny Cruz MD 11/02/16 Ferrous Sulfate 325 Mg [id number] Mg PO BID #60 TAB Prov:Donny Cruz MD 11/02/16 Cephalexin 250 Mg Gxs150 Mg PO DAILY@2100 #30 CAP Prov:Donny Cruz MD 11/02/16 Vit-Iron Carbonyl ( Plus Iron 29-1 mg)1 Tab Tab1 Tab PO DAILY #30 TAB Prov:Donny Cruz MD 11/02/16 Ferrous Sulfate 325 Mg [id number] Mg PO BID #60 TAB Ref 3 Prov:Debby Griffiths MD R1 10/12/16 Cephalexin 500 Mg [id number] Mg PO HS #30 CAP Ref 3 Prov:Debby Griffiths MD R1 10/12/16 Insulin Aspart Inj (Novolog Inj)1,000 Unit/10 Ml Vial12 Units SQ DAILY@18 #1 BOX Take Novolog as prescribed: 14 UNITS AT 8AM, 12 UNITS AT 12PM, 12 UNITS AT 6PM. Prov:Debby Griffiths MD R1 3/2/17 Insulin Aspart Inj (Novolog Inj)1,000 Unit/10 Ml Vial14 Units SQ DAILY@08 #1 BOX Take Novolog as prescribed: 14 UNITS AT 8AM, 12 UNITS AT 12PM, 12 UNITS AT 6PM. Prov:Debby Griffiths MD R1 10/12/16 Insulin Aspart Inj (Novolog Inj)1,000 Unit/10 Ml Vial12 Units SQ DAILY@12 #1 BOX Take Novolog as prescribed: 14 UNITS AT 8AM, 12 UNITS AT 12PM, 12 UNITS AT 6PM. Prov:Debby Griffiths MD R1 10/12/16 Insulin Human NPH Inj (Novolin N Inj)1,000 Unit/10 Ml Vial18 Units SQ DAILY@21 #1 BOX Take 24 UNITS at 8AM, and 18 UNITS at 9PM Prov:Debby Griffiths MD R1 10/12/16 Insulin Human NPH Inj (Novolin N Inj)1,000 Unit/10 Ml Vial24 Units SQ DAILY@08 #1 BOX Take 24 UNITS at 8AM, and 18 UNITS at 9PM Prov:Debby Griffiths MD R1 10/12/16 [place] 31G X 1/4" Sh 31G X 6 mm 1 Mis Mis #3 Box .route As Directed Prov:Debby Griffiths MD R1 10/12/16 Albuterol Sulfate 8 GM Inhaler (Ventolin Hfa)8 Gm Aero2 Puff INH Q6 PRN ( WHEEZING) #1 BOX * SHAKE WELL BEFORE USE * Prov:Carlota Hagen MD 12/28/15 Glucometer Test Strips Box #1 BOX XX QID Ref 1 Prov:Fay Lozano MD 11/23/15 Review of Systems Except as stated in HPI: all other systems reviewed are Neg Physical Exam 129/94, 121/84 Narrative GENERAL: Well-nourished, well-developed patient. SKIN: Warm and dry. HEAD: Normocephalic and atraumatic. EYES: No scleral icterus. No injection or drainage. ENT: No nasal drainage noted. Mucous membranes pink. Airway patent. NECK: Supple, trachea midline. No JVD. CARDIOVASCULAR: Regular rate and rhythm without murmurs, gallops, or rubs. RESPIRATORY: Breath sounds equal bilaterally. No accessory muscle use. BREASTS: Bilateral exam showed no masses , no retractions, no nipple discharge. ABDOMEN/GI: Abdomen soft, non-tender, bowel sounds present, no rebound, no guarding Gravid to [-38] weeks size Fundal Height: [-] GENITOURINARY: External Genitalia: intact and normal in appearance BUS glands: [-Normal] Cervix: Posterior Dilatation: Fingertip Effacement: 25% Station: -3 Presentation: Vertex Membranes: Intact Uterine Contractions: [Irregular-] FHT's: Category: [-1] Baseline: 140 Reactive: Moderate Variability: Moderate with accelerations Decels: Absent EXTREMITIES: No cyanosis or edema. BACK: Nontender without obvious deformity. No CVA tenderness. NEUROLOGICAL: Awake and alert. Motor and sensory grossly within normal limits. Five out of 5 muscle strength in all muscle groups. Normal speech. Data Data Orders Vital Signs (Adult) .ON ADMISSION (11/14/16 17:48) ^ Labor Status (11/14/16 17:48) Urinalysis - C+S If Indicated (11/14/16 17:48) Diet Ob Consistent Carb (11/14/16 Dinner) Cbc No Diff, Includes Plts (11/14/16 17:48) Comprehensive Metabolic Panel (11/14/16 17:48) Uric Acid (11/14/16 17:48) Type And Screen (11/14/16 17:48) Lactated Ringer's 1000 Ml Inj (Lr 1000 M (11/14/16 17:48) Acetaminophen (Tylenol) (11/14/16 18:00) Ondansetron Inj (Zofran Inj) (11/14/16 18:00) Ondansetron Inj (Zofran Inj) (11/14/16 18:00) Sodium Chlorid 0.9% 500 Ml Inj (Ns 500 M (11/14/16 18:00) Labs Laboratory Tests Test 11/14/16 18:00 White Blood Count 9.8 TH/MM3 Red Blood Count 4.42 MIL/MM3 Hemoglobin 12.0 GM/DL Hematocrit 37.3 % Mean Corpuscular Volume 84.5 FL Mean Corpuscular Hemoglobin 27.2 PG Mean Corpuscular Hemoglobin 32.2 % Concent Red Cell Distribution Width 16.6 % Platelet Count 224 TH/MM3 Mean Platelet Volume 9.5 FL Urine Color YELLOW Urine Turbidity HAZY Urine pH 6.5 Urine Specific [place] 1.023 Urine Protein 100 mg/dL Urine Glucose (UA) NEG mg/dL Urine Ketones TRACE mg/dL Urine Occult Blood NEG Urine Nitrite NEG Urine Bilirubin NEG Urine Urobilinogen LESS THAN 2.0 MG/DL Urine Leukocyte Esterase NEG Urine RBC 1 /hpf Urine WBC 4 /hpf Urine Squamous Epithelial 15 /hpf Cells Urine Bacteria RARE /hpf Urine Hyaline Casts 1 /lpf Urine Mucus FEW /lpf Microscopic Urinalysis Comment CULT NOT INDICATED Sodium Level 141 MEQ/L Potassium Level 3.8 MEQ/L Chloride Level 106 MEQ/L Carbon Dioxide Level 25.2 MEQ/L Anion Gap 10 MEQ/L Blood Urea Nitrogen 10 MG/DL Creatinine 0.62 MG/DL Estimat Glomerular Filtration 119 ML/MIN Rate Random Glucose 61 MG/DL Uric Acid 4.3 MG/DL Calcium Level 8.5 MG/DL Total Bilirubin 0.3 MG/DL Aspartate Amino Transf 27 U/L (AST/SGOT) Alanine Aminotransferase 18 U/L (ALT/SGPT) Alkaline Phosphatase 105 U/L Total Protein 6.2 GM/DL Albumin 2.1 GM/DL Blood Type A POSITIVE Antibody Screen NEGATIVE [facility] Medical Record Reviewed: Yes Plan 21-year-old who is at 34 weeks 4 days with elevated blood pressure and mild proteinuria, insulin-dependent diabetes, normal PIH labs. Will admit for 24 hour urine protein and observation of blood pressures. Last ultrasound for weight was 2 weeks ago the baby was 6 lbs. 7 oz. Polyhydramnios noted on the last few ultrasounds. BPP today was 10 out of 10 Diagnosis Diagnosis: Primary Impression: Polyhydramnios affecting Additional Impressions: Type 1 diabetes mellitus affecting in third trimester, antepartum Recurrent urinary tract infection affecting in third trimester 34 weeks gestation of Asthma Asthma affecting , antepartum Kim Whiteside MD Nov 14, 2016 18:01
[2016-11-14] MEDS: LACTATED RINGER'S 1000 ML INJ 1,000 ML IV SCH (18:12)
[2016-11-14 18:24] LABS: HEMATOCRIT 37.3 % (35.0-46.0); MEAN CELL VOLUME 84.5 FL (80.0-100.0); MEAN CORPUSCULAR HEMOGLOBIN 27.2 PG (27.0-34.0); MEAN CORPUSCULAR HGB CONC 32.2 % (32.0-36.0); PLATELET COUNT 224 TH/MM3 (150-450); RED BLOOD COUNT 4.42 MIL/MM3 (4.00-5.30); RED CELL DISTRIBUTION WIDTH 16.6 % (11.6-17.2); REVIEW FLAG FINAL; WHITE BLOOD COUNT 9.8 TH/MM3 (4.0-11.0)
[2016-11-14 18:42] LABS: BACTERIA, URINE RARE /hpf; BLOOD, URINE NEG (NEG); COMMENT (UR) CULT NOT INDICATED; CULTURE IF INDICATED CULT NOT INDICATED; GLUCOSE,URINE NEG (NEG); HYALINE CAST, URINE 1 /lpf (RARE); KETONE, URINE TRACE mg/dL (NEG); MUCUS URINE FEW /lpf (OCC); NITRITE,URINE NEG (NEG); PH, URINE 6.5 (5.0-8.5); SQUAMOUS EPITHELIAL CELL URINE 15 /hpf (0-5); URINE COLOR YELLOW (YELLW/STRAW)
[2016-11-14 19:12] LABS: ALKALINE PHOSPHATASE 105 U/L (45-117); ALT (GPT) 18 U/L (10-53); ANION GAP 10 MEQ/L (5-15); AST (GOT) 27 U/L (15-37); BICARBONATE 25.2 MEQ/L (21.0-32.0); BLOOD UREA NITROGEN 10 MG/DL (7-18); CHLORIDE 106 MEQ/L (98-107); GLOMERULAR FILTRATION RATE 119 ML/MIN (>89); POTASSIUM 3.8 MEQ/L (3.5-5.1); SODIUM (NA) 141 MEQ/L (136-145); TOTAL BILIRUBIN ADULT 0.3 MG/DL (0.2-1.0); URIC ACID 4.3 MG/DL (2.6-6.0)
[2016-11-14] MEDS ORDERED: SODIUM CHLORIDE 0.9% FLUSH 10 ML FLUSH IV FLUSH PRN (19:45)
[2016-11-14] MEDS ORDERED: ONDANSETRON HCL 4 MG/2 ML VIAL IV PRN (19:45)
[2016-11-14] MEDS ORDERED: ONDANSETRON ODT 4 MG TAB PO PRN (19:45)
[2016-11-14] MEDS: SODIUM CHLORIDE 0.9% FLUSH 10 ML FLUSH IV FLUSH SCH (21:00)
[2016-11-14] MEDS ORDERED: INSULIN HUMAN NPH 1,000 UNITS/10 ML VIAL SQ SCH (21:00)
[2016-11-14] MEDS: ZOLPIDEM TARTRATE 5 MG TAB PO PRN (22:56)
[2016-11-14] MEDS: ACETAMINOPHEN 325 MG TAB PO PRN (22:57)
[2016-11-15] VITALS (19 sets, daily range): BP systolic 139–157; BP diastolic 83–95; PULSE 64–86; RESP 16–20; TEMP 97.8–98.4
[2016-11-15] MEDS ORDERED: INSULIN HUMAN NPH 1,000 UNITS/10 ML VIAL SQ SCH ×3 (08:00→21:00)
[2016-11-15] MEDS ORDERED: INSULIN HUMAN REGULAR 1,000 UNITS/10 ML VIAL SQ SCH ×3 (08:00→16:00)
[2016-11-15] MEDS ORDERED: GLUCAGON 1 MG/ML VIAL OTHER PRN (09:00)
[2016-11-15] MEDS ORDERED: DEXTROSE 50% IN WATER 50 ML VIAL(D50) IV PUSH PRN (09:00)
[2016-11-15] MEDS: INSULIN ASPART 1,000 UNITS/10 ML VIAL SQ SCH ×3 (10:38→17:00)
[2016-11-15] MEDS ORDERED: INSULIN ASPART SUPPLEMENTAL SCALE SQ SCH (11:00)
[2016-11-15] MEDS: ACETAMINOPHEN 325 MG TAB PO PRN (14:22)
[2016-11-15] MEDS: MULTIVIT/MIN/PREN/FOL AC/IRON PRENATAL TAB PO SCH (14:22)
[2016-11-15] MEDS ORDERED: DEXTROSE 10% INJ 500 ML IV PRN (20:30)
[2016-11-15] MEDS: ZOLPIDEM TARTRATE 5 MG TAB PO PRN (23:40)
[2016-11-16] VITALS (176 sets, daily range): BP systolic 125–167; BP diastolic 79–93; PULSE 61–240; RESP 18–20; TEMP 97.9–98.2
[2016-11-16] MEDS: MORPHINE SULFATE 4 MG/ML INJ IV PUSH PRN ×5 (01:03→21:47)
[2016-11-16] MEDS ORDERED: BETAMETHASONE SOD PHOS/ACETATE SUSP 30 MG/5 ML VIAL IM ONE (04:00)
[2016-11-16] MEDS: SODIUM CHLORIDE 0.9% FLUSH 10 ML FLUSH IV FLUSH SCH ×2 (07:32→21:00)
[2016-11-16] MEDS ORDERED: INSULIN HUMAN NPH 1,000 UNITS/10 ML VIAL SQ SCH ×2 (08:00→21:00)
--- NOTE | 2016-11-16 09:02 | PD.OB.ANTE ---
Subjective Diagnosis: (1) Type 1 diabetes mellitus Diagnosis: Principal (2) Intrauterine Diagnosis: Principal (3) 34 weeks gestation of Diagnosis: Principal (4) High risk for intrapartum complications in third trimester Diagnosis: Secondary (5) Hypertension affecting Diagnosis: Principal (6) Polyhydramnios affecting Interval History Ms. [place] was afebrile with retention overnight; systolic blood pressures intermittently in 160s. Patient reports significant abdominal pain with contractions. Patient reports some nausea and lack of appetite. No reported pain with urination. Patient states that she has not noticed variations in blood sugars in terms of her mental status Nursing staff present during interview and supplemented history: Concern for hypoglycemia yesterday afternoon/overnight. Patient was hypoglycemic to 38 MG/ DL at 1640 11/15; she was only able to eat small quantities of food/drink interval attempts to elevate blood glucose levels so D10 was added until blood glucose 84mg/dl. Due to concern for lack of oral intake, NPH (16 U) given last night but evening NovoLog held. Most recent blood glucose level 80 MG/DL this morning. Patient received first dose of betamethasone 0420 11/16 Objective Vital Signs Vital Signs Date Time Temp Pulse Resp B/P Pulse Ox O2 Delivery O2 Flow Rate FiO2 11/16/16 08:15 74 11/16/16 08:10 78 11/16/16 08:05 84 11/16/16 08:00 79 134/81 11/16/16 08:00 70 11/16/16 07:55 79 11/16/16 07:50 77 11/16/16 07:45 78 11/16/16 07:45 20 11/16/16 07:45 90 140/88 11/16/16 07:40 82 11/16/16 07:35 74 11/16/16 07:30 74 11/16/16 07:25 72 11/16/16 07:20 71 11/16/16 07:15 70 11/16/16 07:10 67 11/16/16 07:05 70 11/16/16 07:00 67 11/16/16 06:52 97.9 18 11/16/16 06:50 66 11/16/16 06:45 71 11/16/16 06:40 76 11/16/16 06:36 64 141/86 11/16/16 06:35 70 11/16/16 06:30 66 11/16/16 06:25 70 11/16/16 06:20 72 11/16/16 06:15 67 11/16/16 06:10 67 11/16/16 06:05 69 11/16/16 06:00 64 11/16/16 06:00 66 167/89 11/16/16 05:55 65 11/16/16 05:50 64 11/16/16 05:45 67 11/16/16 05:40 75 11/16/16 05:35 61 11/16/16 05:30 66 11/16/16 05:25 69 11/16/16 05:20 64 11/16/16 05:15 61 11/16/16 05:10 66 11/16/16 05:05 66 11/16/16 05:00 67 11/16/16 04:55 65 11/16/16 04:50 62 11/16/16 04:45 83 11/16/16 04:40 65 11/16/16 04:35 64 11/16/16 04:30 61 11/16/16 04:25 69 11/16/16 04:22 63 154/84 11/16/16 04:20 65 11/16/16 04:15 63 11/16/16 04:05 86 11/16/16 04:00 73 162/85 11/16/16 04:00 64 11/16/16 03:55 68 11/16/16 03:50 69 11/16/16 03:45 66 11/16/16 03:40 72 11/16/16 03:35 70 11/16/16 03:30 65 11/16/16 03:25 66 11/16/16 03:20 68 11/16/16 03:15 65 11/16/16 03:10 69 11/16/16 03:05 64 11/16/16 03:00 66 11/16/16 02:55 67 11/16/16 02:50 68 11/16/16 02:45 68 11/16/16 02:40 66 11/16/16 02:35 65 11/16/16 02:30 71 11/16/16 02:25 67 11/16/16 02:20 65 11/16/16 02:15 18 11/16/16 02:15 64 11/16/16 02:10 64 11/16/16 02:05 65 11/16/16 02:00 66 153/90 11/16/16 02:00 66 11/16/16 01:55 62 11/16/16 01:50 74 11/16/16 01:45 67 11/16/16 01:40 71 11/16/16 01:35 64 11/16/16 01:30 72 11/16/16 01:25 61 11/16/16 01:20 61 11/16/16 01:15 63 11/16/16 01:10 64 11/16/16 01:05 64 11/16/16 01:05 63 150/93 11/16/16 01:00 67 11/16/16 00:55 69 11/16/16 00:50 78 11/16/16 00:45 68 11/16/16 00:40 83 11/16/16 00:30 74 11/16/16 00:25 74 11/16/16 00:20 81 11/16/16 00:15 72 11/16/16 00:10 76 11/16/16 00:05 70 11/16/16 00:00 78 11/15/16 23:55 72 11/15/16 23:50 66 11/15/16 23:47 65 150/93 11/15/16 22:00 98.2 18 11/15/16 21:27 75 157/91 11/15/16 13:03 71 156/95 11/15/16 13:01 20 11/15/16 13:01 97.8 11/15/16 11:35 74 11/15/16 11:30 75 11/15/16 11:25 66 11/15/16 11:20 64 11/15/16 11:15 67 11/15/16 11:10 65 11/15/16 11:05 67 11/15/16 11:00 70 11/15/16 10:55 67 Lab & Micro Results Test 11/15/16 21:50 Urine Total Volume 24 Hours 775 ML Urine Total Protein 24 Hour 2224 MG/24HR Physical Exam GENERAL: Well-nourished, well-developed patient. CARDIOVASCULAR: Regular rate and rhythm without murmurs. LE edema bilaterally to ankles. RESPIRATORY: CTAB, normal rate. ABDOMEN/GI: Gravid. Pain with contractions EXTREMITIES: No cyanosis or edema, non-tender, without signs of DVT. GENITOURINARY: Exam by Dr. Beckett / nursing staff 11/15 at ~0100 External Genitalia: intact and normal in appearance Cervix: Dilatation: 1 cm Effacement: 50% Station: -3 Presentation: V Membranes: Intact Uterine Contractions: q2-4 min FHT's: Category: 1 Baseline: 120 Reactive: Y Variability: Mod Decels: None Assessment and Plan Problem List: (1) Polyhydramnios affecting Status: Acute (2) Hypertension affecting Status: Acute (3) High risk for intrapartum complications in third trimester Status: Acute (4) 34 weeks gestation of Status: Acute (5) Type 1 diabetes mellitus Status: Chronic Assessment & Plan: 21 yo at 34 6/7 weeks: Prematurity (34 6/7 weeks) Impression: Suspect need for delivery while premature -Betamethasone 12mg given (11/16 0420) T1DM Impression: Volatile blood glucose level; recent hypoglycemic episodes in association with decreased oral intake. Low blood glucose of 38 MG/DL 11/15; D10 required to achieve euglycemia due to lack of ability to maintain oral intake to correct hypoglycemia. Suspect decreasing insulin requirements likely secondary to placental changes as well as decreased oral intake Current insulin regimen: -22 U NPH a.m. -16 U NPH hs -10 U TID AC -Will start LR due to lack of oral intake -Due to lack of oral intake, we'll reduce NPH from 22 to 18 units a.m.. We'll also decrease NovoLog from 10 units to 5 units this morning -Case discussed between Dr. Willett and nursing staff; we'll plan to have available D10 if needed for hypoglycemia PIH Impression: Elevated blood pressures, proteinuria. CBC, CMP, Uric acid normal for pree labs. SBP intermittently to 160's -Will place hypertensive order protocol Polyhydramnios Impression: 11/14 BPP, NST 05/22. ANNALEE 34.1cm Jamil Rasmussen MD R2 Nov 16, 2016 09:01
[2016-11-16] MEDS: LACTATED RINGER'S 1000 ML INJ 1,000 ML IV SCH (09:20)
[2016-11-16] MEDS ORDERED: SODIUM CHLORIDE 0.9% FLUSH 10 ML FLUSH IV FLUSH PRN (09:30)
[2016-11-16] MEDS ORDERED: CALCIUM GLUCONATE 10% 1 GM/10 ML VIAL IV PUSH PRN (09:30)
[2016-11-16] MEDS ORDERED: NIFEdipine 10 MG CAP PO PRN ×3 (09:30→10:15)
[2016-11-16] MEDS ORDERED: LABETALOL HCL 100 MG/20 ML VIAL IV PUSH PRN (10:30)
[2016-11-16] MEDS ORDERED: LIDOCAINE HCL 1% 50 ML VIAL ONE (11:49)
[2016-11-16] MEDS ORDERED: INSULIN ASPART 1,000 UNITS/10 ML VIAL SQ SCH (12:00)
--- NOTE | 2016-11-16 13:00 | HHI.PR ---
YARD SWITCH OPERATOR Note Note Patient is a 20-year-old female insulin-dependent diabetes .polyhydramnios , large for gestational age, noncompliance, at 34 weeks and 6 days today now with -induced hypertension spilling 2200 mg of in the past 24 hours. Blood pressures are now 150s over 90s. Betamethasone is being given today followed by induction tomorrow due to preeclampsia. Kim Whiteside MD Nov 16, 2016 13:00
[2016-11-16 13:38] LABS: AUTOMATED NEUTROPHIL # 8.2 TH/MM3 (1.8-7.7); BASOPHIL % 0.5 % (0.0-2.0); HEMATOCRIT 37.8 % (35.0-46.0); HEMO FLAGS DIFF FINAL; LYMPHOCYTE # 1.9 TH/MM3 (1.0-4.8); MEAN CELL VOLUME 84.3 FL (80.0-100.0); MEAN CORPUSCULAR HEMOGLOBIN 27.6 PG (27.0-34.0); MEAN CORPUSCULAR HGB CONC 32.7 % (32.0-36.0); MONO % 1.8 % (0.0-8.0); NEUT % 79.7 % (16.0-70.0); PLATELET COUNT 200 TH/MM3 (150-450); RED BLOOD COUNT 4.48 MIL/MM3 (4.00-5.30); RED CELL DISTRIBUTION WIDTH 16.3 % (11.6-17.2); WHITE BLOOD COUNT 10.3 TH/MM3 (4.0-11.0)
[2016-11-16 14:03] LABS: ALKALINE PHOSPHATASE 111 U/L (45-117); ALT (GPT) 12 U/L (10-53); ANION GAP 10 MEQ/L (5-15); AST (GOT) 17 U/L (15-37); BICARBONATE 22.7 MEQ/L (21.0-32.0); BLOOD UREA NITROGEN 12 MG/DL (7-18); CHLORIDE 105 MEQ/L (98-107); GLOMERULAR FILTRATION RATE 160 ML/MIN (>89); POTASSIUM 4.3 MEQ/L (3.5-5.1); SODIUM (NA) 138 MEQ/L (136-145); TOTAL BILIRUBIN ADULT 0.2 MG/DL (0.2-1.0); URIC ACID 4.5 MG/DL (2.6-6.0)
[2016-11-16] MEDS ORDERED: MISC INFORMATION XX ONE (15:00)
[2016-11-16] MEDS ORDERED: DEXTROSE 50% IN WATER 50 ML VIAL(D50) IV PUSH PRN ×2 (15:00→16:30)
[2016-11-16] MEDS ORDERED: INSULIN REGULAR (IV INFUSION) 100 UNITS in SODIUM CHLORIDE 0.9% INJ 99 ML IV SCH (15:00)
[2016-11-16] MEDS ORDERED: GLUCAGON 1 MG/ML VIAL OTHER PRN (16:30)
[2016-11-16] MEDS ORDERED: SODIUM CHLORIDE 0.9% FLUSH 10 ML FLUSH IV FLUSH SCH (21:00)
[2016-11-16] MEDS ORDERED: INSULIN ASPART SUPPLEMENTAL SCALE SQ SCH (21:00)
[2016-11-16] MEDS ORDERED: CITRIC ACID-SODIUM CITRATE LIQ 30 ML UDC ONE (23:32)
[2016-11-16] MEDS ORDERED: ONDANSETRON HCL 4 MG/2 ML VIAL ONE (23:49)
[2016-11-16] MEDS ORDERED: ACETAMINOPHEN 1000 MG/100 ML VIAL IV ONE (23:49)
[2016-11-16] MEDS ORDERED: OXYTOCIN 10 UNIT/ML AMP ONE (23:49)
[2016-11-16] MEDS ORDERED: MORPHINE SULFATE PF 5 MG/10 ML VIAL ONE (23:49)
[2016-11-17] VITALS (13 sets, daily range): BP systolic 124–155; BP diastolic 76–98; PULSE 78–94; RESP 16–18; TEMP 98.2–98.5; O2SAT 96–99
--- NOTE | 2016-11-17 00:52 | HHI.PR ---
CRM MANAGER Note Note Patient is a 21-year-old female who is at 34 weeks 6 days with insulin- dependent diabetes under poor control, -induced hypertension, macrosomia, and polyhydramnios. Patient's 24 hour urine protein is over 2 g. Patient was due for induction tomorrow with Cytotec however heart rate tracing this evening showed initially repetitive late heart rate decelerations. This was treated using maternal hydration, supplemental oxygen, maternal position change. heart rate improved to baseline of 140 with moderate variability. Within an hour heart rate was 140, with loss of variability despite continued interventions. Patient was taken back for section due to nonreassuring heart rate tracing, this patient would not have been able to tolerate Cytotec. Accu-Chek prior to going back for surgery was 165, blood pressure was 150/90 Kim Whiteside MD Nov 17, 2016 00:52
--- NOTE | 2016-11-17 00:56 | PD.OB.DELI ---
Procedure Note Section Procedure Pre Op Diagnosis 35 weeks gestation Insulin-dependent diabetes Poor glycemic control Poor care Polyhydramnios Macrosomia Nonreassuring heart rate tracing Post Op Diagnosis: Performed by Kim Whiteside Procedure: Primary Low Transverse Sec Indication for delivery: Nonreassuring heart tracing Informed consent obtained: For anesthesia, For procedure Confirmed correct: Time-out taken Anesthesia: Spinal Medication prior to procedure: Antacids, Antibiotics, IV Monitoring during procedure: Blood pressure monitoring, Pulse oximetry Urinary catheter: Inserted using sterile technique Sterile preparation: Duraprep Position: Supine with wedge to left side Operative Features Skin Incision: Pfannenstiel Uterine Incision: Low transverse w/knife / blunt ext Membranes Ruptured: Artificially, Amount of liquid (copious, clear) Presentation: Occiput anterior Time of : 00:25 Delivery of infant: Uneventful : Male One Minute : 8 Five Minute : 8 Weight: 3305 grams, 7 lbs. 5 oz. Status of infant: Viable Placenta delivered: Intact Medications: Oxytocin Estimated blood loss: 600 cc Procedure tolerated: Well Maternal Condition: Stable Condition: Stable Kim Whiteside MD Nov 17, 2016 00:55
[2016-11-17] MEDS ORDERED: OXYTOCIN 30 UNITS-500ML PREMIX 500 ML IV ONE (01:00)
[2016-11-17] MEDS ORDERED: SODIUM CHLORIDE 0.9% FLUSH 10 ML FLUSH IV FLUSH PRN (01:00)
[2016-11-17] MEDS ORDERED: DOCUSATE SODIUM 50 MG/SENNA 8.6 MG TAB PO PRN (01:00)
[2016-11-17] MEDS ORDERED: ONDANSETRON HCL 4 MG/2 ML VIAL IV PUSH PRN (01:00)
[2016-11-17] MEDS ORDERED: SIMETHICONE 80 MG CHEWABLE TAB PO PRN (01:00)
[2016-11-17] MEDS ORDERED: IBUPROFEN 600 MG TAB PO PRN (01:00)
[2016-11-17] MEDS ORDERED: GLUCAGON 1 MG/ML VIAL OTHER PRN (01:15)
[2016-11-17] MEDS ORDERED: DEXTROSE 50% IN WATER 50 ML VIAL(D50) IV PUSH PRN (01:15)
[2016-11-17 01:27] LABS: BLOOD GAS BASE EXCESS -2.8 mmol/L (-2-2); BLOOD GAS O2 HGB SATURATION 12 % (90-100); CORD BLOOD GAS HCO3 24 mmol/L (21-29); CORD BLOOD GAS PCO2 66 mmHG (34-78); CORD BLOOD GAS PH 7.19 (7.14-7.42); CORD BLOOD GAS PO2 12 mmHG (3.0-40.0); DRAW SITE CORD BLOOD; STAT YES
[2016-11-17] MEDS ORDERED: LACTATED RINGER'S 1000 ML INJ 1,000 ML IV SCH (05:59)
[2016-11-17] MEDS ORDERED: EPIDURAL-DIPHENHYDRAMINE HCL 50 MG/ML VIAL IV PUSH PRN (06:30)
[2016-11-17] MEDS ORDERED: EPIDURAL-DO NOT ADMINISTER ANTICOAGULANTS PRN (06:30)
[2016-11-17] MEDS ORDERED: EPIDURAL-NO SYSTEMIC NARCOTICS PRN (06:30)
[2016-11-17] MEDS ORDERED: EPIDURAL-NALOXONE HCL 0.4 MG/ML AMP IV PRN (06:30)
[2016-11-17] MEDS ORDERED: EPIDURAL-DIPHENHYDRAMINE HCL 50 MG CAP PO PRN (06:30)
[2016-11-17] MEDS ORDERED: INSULIN HUMAN NPH 1,000 UNITS/10 ML VIAL SQ SCH ×2 (08:00)
[2016-11-17] MEDS: ACETAMINOPHEN 1000 MG/100 ML VIAL IV SCH ×2 (08:06→16:00)
[2016-11-17] MEDS: MULTIVIT/MIN/PREN/FOL AC/IRON PRENATAL TAB PO SCH (08:06)
[2016-11-17] MEDS: INSULIN ASPART SUPPLEMENTAL SCALE SQ SCH ×4 (08:07→23:46)
[2016-11-17] MEDS ORDERED: SODIUM CHLORIDE 0.9% FLUSH 10 ML FLUSH IV FLUSH SCH (09:00)
--- NOTE | 2016-11-17 10:51 | HHI.OB ---
Subjective Post Operative Day: 0 Remarks Ms. Washington is POD 0 from CS at Ms. Washington reports that she is doing well at this time. Patient states that her pain is controlled with IV Tylenol; she describes it as at the area of her incision. Overall, patient reports that pain is better after delivering her infant. Patient denies other symptoms at this time. Patient reports improved appetite. No dysuria or shortness of breath reported. Mild vaginal bleeding. Per nursing staff, patient has been requesting diet this morning. AM blood glucose level 166 mg/dl, received 1 U SS Novolog. Objective Vitals/I&O Vital Signs Date Time Temp Pulse Resp B/P Pulse Ox O2 Delivery O2 Flow Rate FiO2 11/17/16 08:00 88 11/17/16 07:50 18 142/83 11/17/16 07:50 98.3 11/17/16 06:28 98.5 11/17/16 06:27 93 18 152/83 11/17/16 04:15 80 18 140/84 11/17/16 04:15 98.4 11/17/16 02:07 98 11/17/16 02:07 89 18 141/94 11/17/16 01:45 136/85 11/17/16 01:45 94 18 97 11/17/16 01:30 91 18 132/84 11/17/16 01:30 99 11/17/16 01:15 85 18 96 11/17/16 01:15 124/76 11/17/16 01:00 86 18 129/77 11/17/16 01:00 98.2 96 11/16/16 23:10 104 11/16/16 23:05 102 11/16/16 23:00 105 11/16/16 22:55 107 11/16/16 22:50 109 11/16/16 22:45 108 11/16/16 22:40 105 11/16/16 22:37 18 11/16/16 22:35 103 11/16/16 22:30 104 11/16/16 22:25 101 11/16/16 22:20 98 11/16/16 22:15 105 11/16/16 22:10 101 11/16/16 22:05 97 11/16/16 22:00 97 11/16/16 22:00 18 11/16/16 21:55 100 11/16/16 21:50 99 11/16/16 21:45 103 11/16/16 21:40 99 11/16/16 21:35 108 11/16/16 21:30 124 11/16/16 21:00 18 11/16/16 20:45 240 11/16/16 20:40 88 11/16/16 20:35 82 11/16/16 20:30 83 11/16/16 20:25 91 11/16/16 20:20 93 11/16/16 20:15 89 11/16/16 20:10 89 11/16/16 20:05 82 11/16/16 20:00 89 11/16/16 20:00 92 136/88 11/16/16 19:55 86 11/16/16 19:50 86 11/16/16 19:45 100 11/16/16 19:40 102 11/16/16 19:35 101 11/16/16 19:30 87 11/16/16 19:25 93 11/16/16 19:20 94 11/16/16 19:15 88 11/16/16 19:10 104 11/16/16 19:00 18 11/16/16 19:00 93 11/16/16 18:55 102 11/16/16 18:50 109 11/16/16 18:45 97 11/16/16 18:40 94 11/16/16 18:35 92 11/16/16 18:30 102 11/16/16 18:25 96 11/16/16 18:20 94 11/16/16 18:15 98 11/16/16 18:10 107 11/16/16 18:05 98 11/16/16 18:00 100 11/16/16 18:00 95 125/80 11/16/16 16:31 98.2 18 11/16/16 16:30 88 11/16/16 16:25 90 11/16/16 16:20 85 11/16/16 16:15 86 11/16/16 16:15 96 132/79 11/16/16 16:10 94 11/16/16 16:05 97 11/16/16 16:00 94 11/16/16 10:55 95 11/16/16 10:50 97 Result Diagram: 11/16/16 1255 11/16/16 1255 Objective Remarks GENERAL: Well-nourished, well-developed patient. Skin: Pale CARDIOVASCULAR: Regular rate and rhythm without murmurs. RESPIRATORY: Breath sounds equal bilaterally. No accessory muscle use. ABDOMEN/GI: Abdomen soft, non-tender, bowel sounds present. Incision: Clean, dry and intact. Fundus: Firm, non-tender at umbilicus. GENITOURINARY: Light to moderate bleeding. EXTREMITIES: No cyanosis or edema, non-tender, without signs of DVT. Medications and IVs Current Medications Medications (Trade) Dose Ordered Sig/Shantanu Route Start Time Stop Time Status Last Admin (Tylenol) 650 mg Q4H PRN PO 11/14/16 19:45 11/15/16 14:22 (Stuartnatal Plus 3 ) 1 tab DAILY PO 11/15/16 09:00 11/17/16 08:06 Zolpidem Tartrate 5 mg 5 mg HS PRN PO 11/14/16 19:45 11/15/16 23:40 (D10w Inj) 500 ml @ 100 mls/hr Q5H PRN IV 11/15/16 20:30 11/15/16 18:30 (Morphine Inj) 4 mg Q3H PRN IV PUSH 11/16/16 00:45 11/16/16 21:47 (NovoLOG INJ) 5 units TIDAC SQ 11/16/16 12:00 Hold (Calcium Gluconate Inj) 1 gm UNSCH PRN IV PUSH 11/16/16 09:30 (NovoLIN N INJ) 8 units HS SQ 11/16/16 21:00 11/16/16 21:00 (D50w (Vial) Inj) 25 ml UNSCH PRN IV PUSH 11/16/16 16:30 Glucagon 1 mg 1 mg UNSCH PRN OTHER 11/16/16 16:30 (Lr 1000 ml Inj) 1,000 ml @ 100 mls/hr Q10H IV 11/17/16 05:59 11/18/16 01:58 (NS Flush) 2 ml BID IV FLUSH 11/17/16 09:00 (NS Flush) 2 ml UNSCH PRN IV FLUSH 11/17/16 01:00 (Mylicon Chew) 80 mg QID PRN PO 11/17/16 01:00 (Percocet 5-325 Mg) 1 tab Q4H PRN PO 11/17/16 01:00 (Percocet 5-325 Mg) 2 tab Q4H PRN PO 11/17/16 01:00 (Preeti-Colace) 2 tab Q12H PRN PO 11/17/16 01:00 (M-M-R Ii Inj) 0.5 ml ONCE ONCE SQ 11/18/16 16:00 11/18/16 16:01 (Boostrix Inj) 0.5 ml ONCE ONCE IM 11/18/16 16:00 11/18/16 16:01 (Zofran Inj) 4 mg Q6H PRN IV PUSH 11/17/16 01:00 (Motrin) 600 mg Q6H PRN PO 11/17/16 03:00 Hold Miscellaneous Information NO SYSTEMIC NARCOTICS TO BE GIVEN FO... UNSCH PRN .XX 11/17/16 06:30 11/18/16 00:00 (Narcan Inj) 0.4 mg UNSCH PRN IV 11/17/16 06:30 11/18/16 00:00 (Benadryl Inj) 25 mg Q6H PRN IV PUSH 11/17/16 06:30 11/18/16 00:00 (Benadryl) 50 mg Q6H PRN PO 11/17/16 06:30 11/18/16 00:00 Miscellaneous Information ALL NURSING DEPARTMENTS UNSCH PRN .XX 11/17/16 06:30 11/18/16 00:00 (Ofirmev Inj) 1,000 mg Q8H IV 11/17/16 08:00 11/17/16 16:01 11/17/16 08:06 Assessment/Plan Problem List: (1) Polyhydramnios affecting (2) Hypertension affecting (3) High risk for intrapartum complications in third trimester (4) 34 weeks gestation of (5) Type 1 diabetes mellitus Plan: 21 yo who is POD0 from CS (11/17 at 0025) Routine Care -Continue Percocet/Motrin for pain control -Continue to monitor vital signs, vaginal bleeding -Continue to encourage breast-feeding -Continue stool softener -Continue to encourage ambulation -Advance diet as tolerated -Plan for incision check in 1 week/ follow-up T1DM Impression: Volatile blood glucose levels; recent hypoglycemic episodes in association with decreased oral intake. BG 166 mg/dl this AM, received 2 U Novolog Most recent blood glucose level in 200's -Will give 10 NPH and 5 U Novolog this AM -Will continue low dose SS Novolog -Will check blood glucose levels q2hrs for several hours, and will then increase frequency of checks assuming stability -Will initiate 10 U NPH BID starting tomorrow morning -Will monitor oral intake due to concern for ileus and gastroparesis PIH Impression: blood pressures averaging in [id number] systolically. -Continue to monitor, and initiate antihypertensive if necessary Jamil Rasmussen MD R2 Nov 17, 2016 10:51
[2016-11-17] MEDS ORDERED: OXYTOCIN 30 UNITS-500ML PREMIX 500 ML IV PRN (11:00)
[2016-11-17] MEDS: IBUPROFEN 600 MG TAB PO PRN (12:34)
[2016-11-17] MEDS ORDERED: INSULIN HUMAN NPH 1,000 UNITS/10 ML VIAL SQ ONE ×2 (13:00→19:05)
[2016-11-17] MEDS ORDERED: INSULIN ASPART 1,000 UNITS/10 ML VIAL SQ ONE ×3 (13:00→19:05)
[2016-11-17] MEDS: ACETAMINOPHEN 325 MG TAB PO PRN (15:26)
[2016-11-18] MEDS: IBUPROFEN 600 MG TAB PO PRN ×3 (00:01→19:14)
[2016-11-18] MEDS: oxyCODONE/ACETAMINOPHEN 5 MG/325 MG TAB PO PRN ×6 (00:02→23:40)
[2016-11-18] MEDS: INSULIN ASPART SUPPLEMENTAL SCALE SQ SCH ×4 (02:22→19:46)
[2016-11-18 05:00] VITALS: BP 142/81; PULSE 76; RESP 18
[2016-11-18 07:00] LABS: AUTOMATED NEUTROPHIL # 7.6 TH/MM3 (1.8-7.7); BASOPHIL # 0.1 TH/MM3 (0-0.2); BASOPHIL % 0.6 % (0.0-2.0); EOSINOPHIL # 0.1 TH/MM3 (0-0.4); EOSINOPHIL % 0.5 % (0.0-4.0); HEMATOCRIT 27.8 % (35.0-46.0); HEMO FLAGS DIFF FINAL; LYMPH % 24.8 % (9.0-44.0); LYMPHOCYTE # 2.9 TH/MM3 (1.0-4.8); MEAN CELL VOLUME 84.8 FL (80.0-100.0); MEAN CORPUSCULAR HEMOGLOBIN 27.1 PG (27.0-34.0); MONO % 8.2 % (0.0-8.0); NEUT % 65.9 % (16.0-70.0); PLATELET COUNT 184 TH/MM3 (150-450); RED BLOOD COUNT 3.28 MIL/MM3 (4.00-5.30); RED CELL DISTRIBUTION WIDTH 16.5 % (11.6-17.2); WHITE BLOOD COUNT 11.6 TH/MM3 (4.0-11.0)
[2016-11-18] MEDS: MULTIVIT/MIN/PREN/FOL AC/IRON PRENATAL TAB PO SCH (07:59)
[2016-11-18 08:00] VITALS: BP 137/81; PULSE 64; RESP 18; TEMP 98.3
[2016-11-18] MEDS: INSULIN HUMAN NPH 1,000 UNITS/10 ML VIAL SQ SCH ×2 (08:02→17:30)
--- NOTE | 2016-11-18 08:12 | HHI.OB ---
Subjective Post Day: 2 Remarks POD 2 AF VSS pt doing well c/o pain but she has been up and overdoing it and thats mainly why she is hurting now , she is eating solid food today , ambulating , voiding well incision clean & dry uterus firm at umb FBS 147 today given -- 10 N / 5R this am and will give this same at 5 pm Imp- IDDM postop C/S doing well Plan - adjust insulin prn probably D/C tomorrow Objective Vitals/I&O Vital Signs Date Time Temp Pulse Resp B/P Pulse Ox O2 Delivery O2 Flow Rate FiO2 11/18/16 05:00 76 142/81 11/18/16 05:00 18 11/17/16 19:15 155/97 11/17/16 19:00 149/98 11/17/16 19:00 98.3 80 18 11/17/16 17:00 98.3 78 16 144/88 Objective Remarks GENERAL: Well-nourished, well-developed patient. CARDIOVASCULAR: Regular rate and rhythm without murmurs, gallops, or rubs. RESPIRATORY: Breath sounds equal bilaterally. No accessory muscle use. ABDOMEN/GI: Abdomen soft, non-tender. Fundus: Firm, non-tender at umbilicus. GENITOURINARY: Light to moderate bleeding. EXTREMITIES: No cyanosis or edema, non-tender, without signs of DVT. Medications and IVs Current Medications Medications (Trade) Dose Ordered Sig/Shantanu Route Start Time Stop Time Status Last Admin (Tylenol) 650 mg Q4H PRN PO 11/14/16 19:45 11/17/16 15:26 (Stuartnatal Plus 3 ) 1 tab DAILY PO 11/15/16 09:00 11/18/16 07:59 Zolpidem Tartrate 5 mg 5 mg HS PRN PO 11/14/16 19:45 11/15/16 23:40 (D10w Inj) 500 ml @ 100 mls/hr Q5H PRN IV 11/15/16 20:30 11/15/16 18:30 (Morphine Inj) 4 mg Q3H PRN IV PUSH 11/16/16 00:45 11/16/16 21:47 (Calcium Gluconate Inj) 1 gm UNSCH PRN IV PUSH 11/16/16 09:30 (D50w (Vial) Inj) 25 ml UNSCH PRN IV PUSH 11/16/16 16:30 (Glucagon Inj) 1 mg UNSCH PRN OTHER 11/16/16 16:30 (NS Flush) 2 ml BID IV FLUSH 11/17/16 09:00 (NS Flush) 2 ml UNSCH PRN IV FLUSH 11/17/16 01:00 (Mylicon Chew) 80 mg QID PRN PO 11/17/16 01:00 (Percocet 5-325 Mg) 1 tab Q4H PRN PO 11/17/16 01:00 11/18/16 02:29 (Percocet 5-325 Mg) 2 tab Q4H PRN PO 11/17/16 01:00 11/18/16 08:00 (Preeti-Colace) 2 tab Q12H PRN PO 11/17/16 01:00 11/18/16 08:00 (M-M-R Ii Inj) 0.5 ml ONCE ONCE SQ 11/18/16 16:00 11/18/16 16:01 (Boostrix Inj) 0.5 ml ONCE ONCE IM 11/18/16 16:00 11/18/16 16:01 (Zofran Inj) 4 mg Q6H PRN IV PUSH 11/17/16 01:00 (Motrin) 600 mg Q6H PRN PO 11/17/16 03:00 11/18/16 08:00 (NovoLIN N INJ) 10 units BID@08,17 SQ 11/18/16 08:00 11/18/16 08:02 Assessment/Plan Problem List: (1) Polyhydramnios affecting (2) Hypertension affecting (3) High risk for intrapartum complications in third trimester (4) 34 weeks gestation of (5) Type 1 diabetes mellitus Plan: 21 yo who is POD0 from CS (11/17 at 0025) Routine Care -Continue Percocet/Motrin for pain control -Continue to monitor vital signs, vaginal bleeding -Continue to encourage breast-feeding -Continue stool softener -Continue to encourage ambulation -Advance diet as tolerated -Plan for incision check in 1 week/ follow-up T1DM Impression: Volatile blood glucose levels; recent hypoglycemic episodes in association with decreased oral intake. BG 166 mg/dl this AM, received 2 U Novolog Most recent blood glucose level in 200's -Will give 10 NPH and 5 U Novolog this AM -Will continue low dose SS Novolog -Will check blood glucose levels q2hrs for several hours, and will then increase frequency of checks assuming stability -Will initiate 10 U NPH BID starting tomorrow morning -Will monitor oral intake due to concern for ileus and gastroparesis PIH Impression: blood pressures averaging in [id number] systolically. -Continue to monitor, and initiate antihypertensive if necessary Cecilio Willett II, MD Nov 18, 2016 08:12
[2016-11-18] MEDS ORDERED: DIPHTH/TETANUS/ACEL PERTUSSIS (BOOSTER) 0.5 ML VIAL/PFS IM ONE (16:00)
[2016-11-18] MEDS ORDERED: MEASLES, MUMPS, RUBELLA VACCINE 0.5 ML VIAL SQ ONE (16:00)
[2016-11-18] MEDS: INSULIN HUMAN REGULAR 1,000 UNITS/10 ML VIAL SQ SCH (17:30)
[2016-11-18 19:28] VITALS: BP 158/94; PULSE 74; RESP 18; TEMP 98.1
[2016-11-19] MEDS: oxyCODONE/ACETAMINOPHEN 5 MG/325 MG TAB PO PRN ×3 (06:07→14:45)
[2016-11-19] MEDS: IBUPROFEN 600 MG TAB PO PRN ×2 (06:07→14:46)
[2016-11-19] MEDS: INSULIN ASPART SUPPLEMENTAL SCALE SQ SCH ×2 (07:00→11:18)
[2016-11-19 07:30] VITALS: BP 156/94; PULSE 67; RESP 20; TEMP 98.1
[2016-11-19] MEDS: MULTIVIT/MIN/PREN/FOL AC/IRON PRENATAL TAB PO SCH (08:11)
[2016-11-19] MEDS: INSULIN HUMAN REGULAR 1,000 UNITS/10 ML VIAL SQ SCH (08:11)
[2016-11-19] MEDS: INSULIN HUMAN NPH 1,000 UNITS/10 ML VIAL SQ SCH (08:12)
--- NOTE | 2016-11-19 09:33 | HHI.OB ---
Subjective Post Operative Day: 2 Remarks Patient is doing well this morning. She is ambulating and voiding without difficulty. Her pain is controlled with medications. Denies headache, fever, chills, blurry vision. She is passing gas. Vaginal bleeding within normal limits. (Shawn Mckinney MD R2) Objective Vitals/I&O Vital Signs Date Time Temp Pulse Resp B/P Pulse Ox O2 Delivery O2 Flow Rate FiO2 11/19/16 07:30 98.1 67 20 156/94 11/18/16 19:28 98.1 74 18 158/94 (Shawn Mckinney MD R2) Result Diagram: 11/18/16 0618 11/16/16 1255 Objective Remarks GENERAL: Well-nourished, well-developed patient. Skin: Pale CARDIOVASCULAR: Regular rate and rhythm without murmurs. RESPIRATORY: Breath sounds equal bilaterally. No accessory muscle use. ABDOMEN/GI: Abdomen soft, non-tender, bowel sounds present. Incision: Clean, dry and intact. Fundus: Firm, non-tender at umbilicus. GENITOURINARY: Light to moderate bleeding. EXTREMITIES: No cyanosis or edema, non-tender, without signs of DVT. Medications and IVs Current Medications Medications (Trade) Dose Ordered Sig/Shantanu Route Start Time Stop Time Status Last Admin (Tylenol) 650 mg Q4H PRN PO 11/14/16 19:45 11/17/16 15:26 (Stuartnatal Plus 3 ) 1 tab DAILY PO 11/15/16 09:00 11/19/16 08:11 Zolpidem Tartrate 5 mg 5 mg HS PRN PO 11/14/16 19:45 11/15/16 23:40 (D10w Inj) 500 ml @ 100 mls/hr Q5H PRN IV 11/15/16 20:30 11/15/16 18:30 (Morphine Inj) 4 mg Q3H PRN IV PUSH 11/16/16 00:45 11/16/16 21:47 (Calcium Gluconate Inj) 1 gm UNSCH PRN IV PUSH 11/16/16 09:30 (D50w (Vial) Inj) 25 ml UNSCH PRN IV PUSH 11/16/16 16:30 (Glucagon Inj) 1 mg UNSCH PRN OTHER 11/16/16 16:30 (NS Flush) 2 ml BID IV FLUSH 11/17/16 09:00 (NS Flush) 2 ml UNSCH PRN IV FLUSH 11/17/16 01:00 (Mylicon Chew) 80 mg QID PRN PO 11/17/16 01:00 (Percocet 5-325 Mg) 1 tab Q4H PRN PO 11/17/16 01:00 11/19/16 06:07 (Percocet 5-325 Mg) 2 tab Q4H PRN PO 11/17/16 01:00 11/18/16 23:40 (Preeti-Colace) 2 tab Q12H PRN PO 11/17/16 01:00 11/18/16 08:00 (Zofran Inj) 4 mg Q6H PRN IV PUSH 11/17/16 01:00 (Motrin) 600 mg Q6H PRN PO 11/17/16 03:00 11/19/16 06:07 (NovoLIN N INJ) 10 units BID@08, SQ 11/18/16 08:00 11/19/16 08:12 (NovoLIN R INJ) 10 units BID@,17 SQ 11/19/16 17:00 (Shawn Mckinney MD R2) Assessment/Plan Problem List: (1) Polyhydramnios affecting (2) Hypertension affecting (3) High risk for intrapartum complications in third trimester (4) 34 weeks gestation of (5) Type 1 diabetes mellitus (6) delivery delivered Assessment and Plan 21 yo who is POD2 from CS (11/17 at 0025) Routine Care -Continue Percocet/Motrin for pain control -Continue to monitor vital signs, vaginal bleeding -Continue to encourage breast-feeding -Continue stool softener -Continue to encourage ambulation -Advance diet as tolerated -Plan for incision check in 1 week/ follow-up T1DM Post meal Accu-Cheks on 11/18 Accu-Cheks to 242 at [phone] at 1900 Continue NPH 10 units Pre-meal regular insulin 10 units subcutaneous twice a day Discussed with Dr. Isabel LEÓN Impression: blood pressures averaging in [id number] systolically. Labetalol 200 mg by mouth every 12 hours scheduled. On discharge, Patient will need follow-up in one week for her blood pressure checked; she currently does not have an OB provider in the area as she is from [place]. She was informed in the event she cannot find an OB provider who will see her, she should come to OB triage for blood pressure check. Discharge Planning Anticipate discharge tomorrow. Discussed with Dr. Hall (Shawn Mckinney MD R2) Attending Attestation Agree with resident A/p. increase insulin post meal to 10 units. Monitor blood glucoses likely d/c home tomorrow. (Isabel Hall MD) Shawn Mckinney MD R2 Nov 19, 2016 09:33 Isabel Hall MD Nov 19, 2016 10:15
[2016-11-19] MEDS ORDERED: LABETALOL HCL 100 MG TAB PO SCH (10:00)
[2016-11-19] MEDS ORDERED: LABETALOL HCL 200 MG TAB PO SCH (10:15)
[2016-11-19 12:53] VITALS: BP 151/93; PULSE 73; PULSE 93; RESP 18
[2016-11-19] MEDS ORDERED: LABE200T2 PO (13:17)
[2016-11-19] MEDS ORDERED: OXYC1TAB63 PO (13:17)
[2016-11-19] MEDS ORDERED: IBUP-232 PO (13:17)
[2016-11-19] MEDS ORDERED: SENN1TAB PO (13:17)
[2016-11-19] MEDS ORDERED: NOVORP2 SQ (13:19)
[2016-11-19] MEDS ORDERED: NOVONP2 SQ (13:19)
--- NOTE | 2016-11-19 13:20 | HHI.DCPOC ---
Discharge Care Plan Diagnosis: (1) delivery delivered (2) DM (diabetes mellitus) (3) Asthma (4) Hypertension affecting Report Symptoms to Your Doctor -Temperate above 100.5 degrees -Redness, of incision or excessive or foul smelling drainage -Unusual pain or calf pain -Increased vaginal bleeding -Painful or difficulty urinating -Feelings of extreme sadness or anxiety after 2 weeks Goals to Promote Your Health * To prevent worsening of your condition and complications * To maintain your health at the optimal level Directions to Meet Your Goals Take your medications as prescribed Follow your dietary instruction Follow activity as directed Ensure plenty of rest for recovery Drink fluids for hydration Keep your appointments as scheduled Take your immunizations and boosters as scheduled If your symptoms worsen call your PCP, if no PCP go to Urgent Care Center or Emergency Room Smoking is Dangerous to Your Health. Avoid second hand smoke Call the 24-hour crisis hotline for domestic abuse at Shawn Mckinney MD R2 Nov 19, 2016 13:20
[2016-11-19] MEDS ORDERED: INSULIN HUMAN REGULAR 1,000 UNITS/10 ML VIAL SQ SCH (17:00)
--- NOTE | 2016-11-20 08:41 | MP ---
cc: CELINA CERON M.D. DATE OF SURGERY: 11/17/2016 PREOPERATIVE DIAGNOSIS 1. Thirty-five weeks gestation. 2. Insulin-dependent diabetes. 3. Poor glycemic control. 4. Poor care. 5. Polyhydramnios. 6. Macrosomia. 7. Non-reassuring heart rate tracing. POSTOPERATIVE DIAGNOSIS 1. Thirty-five weeks gestation. 2. Insulin-dependent diabetes. 3. Poor glycemic control. 4. Poor care. 5. Polyhydramnios. 6. Macrosomia. 7. Non-reassuring heart rate tracing. PROCEDURE Primary low transverse section without extension. ESTIMATED BLOOD LOSS 600 cc. ANESTHESIA Spinal. DRAINS Hernández to gravity. COUNTS Correct x3. COMPLICATIONS No complications. PATHOLOGY Placenta. MEDICATIONS Ancef two grams was given preoperatively. FINDINGS 1. Normal uterus, tubes and ovaries. 2. Copious clear amniotic fluid, approximately 3.5 liters. 3. male in a vertex presentation with Apgars of 8 and 8, 3305 grams, weighing 7 pounds 5 ounces, delivered at 0025. DESCRIPTION OF PROCEDURE The patient was taken back to the operating room and prepped and draped in the usual sterile fashion in the dorsal supine position. After adequate anesthetic was obtained, she is put into the dorsal supine position with a tilt to the left side. A Hernández catheter was placed. A Pfannenstiel incision was made into the skin, taken down to the fascia. The fascia was nicked in the midline, extended bilaterally and taken off the rectus muscles. The muscles were divided in the midline. The anterior peritoneum was entered. The vesicouterine peritoneum was taken down. A transverse hysterotomy incision was made and bluntly extended bilaterally. Copious amniotic fluid was suctioned at this time. The head was finally able to be brought down and was delivered. The mouth and nares were bulb suctioned. The rest of the body was delivered. A 45-second delayed cord clamping was done and then the baby was sent off to the resuscitation team. Arterial blood gas was collected and the placenta was delivered intact spontaneously. The endometrial cavity was curetted with a moist laparotomy sponge. The hysterotomy incision was repaired using running locking #1 chromic suture with good hemostasis at closure. The gutters were rendered free of all blood and clot material. The abdominal muscles were plicated together in the midline with a #1 chromic. The fascia was closed with a #1 PDS in a running fashion. A subcuticular suture of 3-0 Monocryl was placed in the skin. The patient tolerated the procedure well. She was taken back to the recovery room in good condition. MD ERVIN Barros/ALONZO /1:00 AM /8:31 AM
[2016-12-01] MEDS ORDERED: VENTAER INH (09:59)
[2016-12-01] MEDS ORDERED: PEN31MIS2 (10:20)
[2016-12-01] MEDS ORDERED: NOVORP2 SQ (10:22)
[2016-12-01] MEDS ORDERED: ONETTES4 (10:22)
== END 2016-11-19 15:00 | disposition home or self-care (01) | DRG 765 ==
LOC: HOBED 17:11 → H2EB 20:15 → INTOOBSV 20:15 → H2EA 11-16 00:42 → OBSVTOIN 11-16 13:22 → H1EA 11-17 04:03
PROVIDERS: ADMIT Obstetrics & Gynecology Obstetrics; ATTEND Obstetrics & Gynecology Obstetrics
PROC: 10D00Z1 Extraction of Products of Conception, Low, Open Approach (ICD-10-PCS; principal; 2016-11-17)
DX: O13.4 Gestational [pregnancy-induced] hypertension without significant proteinuria, complicating childbirth (principal); O40.3XX0 Polyhydramnios, third trimester, not applicable or unspecified; E10.649 Type 1 diabetes mellitus with hypoglycemia without coma; O24.02 Pre-existing type 1 diabetes mellitus, in childbirth; O36.63X0 Maternal care for excessive fetal growth, third trimester, not applicable or unspecified; O76 Abnormality in fetal heart rate and rhythm complicating labor and delivery; Z3A.34 34 weeks gestation of pregnancy; Z37.0 Single live birth; Z79.4 Long term (current) use of insulin
CPT/HCPCS: 76816; 76818; 76819; 76937; 80053; 81001; 82805; 82948; 84157; 84550; 85025; 85027; 86850; 86900; 86901; 88307; 90707; 90715; 96360; 96361; J0131; J0702; J1815; J2270; J2274; J2405; J2590; J3010; J7040; J7120

== ENCOUNTER 2016-11-26 23:49 | Inpatient (IN) | payer MEDICAID ==
[~2016-11-26] VITALS: Ht 170.2 cm; Wt 63.6 kg
[~2016-11-26 23:49] MED LIST changes: -CEPH250C PO; -CEPH500C PO; +IBUP-232 PO; +LABE200T2 PO; -NOVOLOGP2 SQ; +OXYC1TAB63 PO; +SENN1TAB PO
[2016-11-26 23:53] VITALS: BP 130/87; PULSE 55; RESP 11
[2016-11-27] VITALS (8 sets, daily range): BP systolic 135–166; BP diastolic 71–100; PULSE 61–103; RESP 12–20; TEMP 97.2–98.2; O2SAT 96–100
[2016-11-27] MEDS ORDERED: NOVORP2 SQ (00:09)
[2016-11-27] MEDS ORDERED: SODIUM CHLORIDE 0.9% FLUSH 10 ML FLUSH IVF PRN (00:30)
--- NOTE | 2016-11-27 00:38 | PD ---
HPI . Seizure Chief Complaint: Diabetic Time Seen by Provider: 00:22 Travel History International Travel<30 days: No Contact w/Intl Traveler<30days: No Traveled to known affect area: No History of Present Illness HPI Patient presents to us following an apparent seizure activity at home. EMS reports hypoglycemia at the scene. She was treated with IV glucose with improvement in her mental status. However, her mental status is not yet back to baseline. She admits that she missed supper tonight. Patient is also recently status post a section. [facility] Past Medical History Diabetes: Yes Patient Takes Glucophage: No ?: Not : 1 Para: 1 Past Surgical History Section: Yes Social History Alcohol Use: No Tobacco Use: No Substance Use: No Allergies-Medications (Allergen,Severity, Reaction): Coded Allergies: No Known Allergies (Unverified , 11/27/16) Reported Meds & Prescriptions Reported Meds & Active Scripts Active Reported Novolin R Inj (Insulin Human Regular) 1,000 Unit/10 Ml Vial 0 SQ DIRECTED Sliding Scale As Directed. Review of Systems Except as stated in HPI: all other systems reviewed are Neg General / Constitutional: No: Fever, Chills Neurologic: Positive: Seizures Endocrine: Positive: Other (hypoglycemia) Physical Exam Narrative GENERAL: Patient is groggy but responsive. She is able to tell me her name. She is able to tell me that she missed supper tonight. SKIN: Warm and dry. HEAD: Atraumatic. Normocephalic. EYES: Pupils equal and round. Extraocular movements are intact. ENT: No nasal bleeding or discharge. Mucous membranes pink and moist. NECK: Trachea midline. Neck is supple. CARDIOVASCULAR: Regular rate and rhythm. Heart sounds are normal. RESPIRATORY: No accessory muscle use. Lungs are clear with good air movement throughout. GASTROINTESTINAL: Abdomen soft, non-tender, nondistended. She has a healing C- section scar in the suprapubic area. MUSCULOSKELETAL: No obvious deformities. No edema. NEUROLOGICAL: Awake but groggy. No obvious cranial nerve deficits. Motor grossly within normal limits. Normal speech. PSYCHIATRIC: Appropriate mood and affect; insight and judgment normal. Data Data Last Documented VS Vital Signs Date Time Temp Pulse Resp B/P Pulse Ox O2 Delivery O2 Flow Rate FiO2 11/27/16 01:31 61 13 135/91 100 Room Air 11/27/16 00:00 97.2 Orders Basic Metabolic Panel (Bmp) (11/27/16 00:22) Complete Blood Count With Diff (11/27/16 00:) Urinalysis - C+S If Indicated (11/27/16:) Ct Brain W/O Iv Contrast(Rout) (11/27/16 00:22) Blood Glucose (11/27/16 00:22) Ecg Monitoring (11/27/16:) Iv Access Insert/Monitor (11/27/16:) Oximetry (11/27/16 00:) Sodium Chloride 0.9% Flush (Ns Flush) (11/27/16 00:30) Diet As Tolerated (11/27/16 00:) Cath For Specimen (11/27/16 02:22) Urine Culture (11/27/16 02:45) Labs Laboratory Tests Test 11/27/16 11/27/16 00:35 02:45 White Blood Count 9.7 TH/MM3 Red Blood Count 4.20 MIL/MM3 Hemoglobin 11.9 GM/DL Hematocrit 35.6 % Mean Corpuscular Volume 84.8 FL Mean Corpuscular Hemoglobin 28.5 PG Mean Corpuscular Hemoglobin 33.6 % Concent Red Cell Distribution Width 17.0 % Platelet Count 343 TH/MM3 Mean Platelet Volume 7.5 FL Neutrophils (%) (Auto) 58.8 % Lymphocytes (%) (Auto) 28.9 % Monocytes (%) (Auto) 9.1 % Eosinophils (%) (Auto) 1.5 % Basophils (%) (Auto) 1.7 % Neutrophils # (Auto) 5.7 TH/MM3 Lymphocytes # (Auto) 2.8 TH/MM3 Monocytes # (Auto) 0.9 TH/MM3 Eosinophils # (Auto) 0.1 TH/MM3 Basophils # (Auto) 0.2 TH/MM3 CBC Comment AUTO DIFF Differential Comment AUTO DIFF CONFIRMED Sodium Level 138 MEQ/L Potassium Level 3.9 MEQ/L Chloride Level 103 MEQ/L Carbon Dioxide Level 26.2 MEQ/L Anion Gap 9 MEQ/L Blood Urea Nitrogen 16 MG/DL Creatinine 0.52 MG/DL Estimat Glomerular Filtration 146 ML/MIN Rate Random Glucose 90 MG/DL Calcium Level 9.0 MG/DL Urine Color YELLOW Urine Turbidity CLEAR Urine pH 7.0 Urine Specific [place] 1.017 Urine Protein 100 mg/dL Urine Glucose (UA) 1000 mg/dL Urine Ketones NEG mg/dL Urine Occult Blood MOD Urine Nitrite NEG Urine Bilirubin NEG Urine Urobilinogen LESS THAN 2.0 MG/DL Urine Leukocyte Esterase NEG Urine RBC 177 /hpf Urine WBC 5 /hpf Urine Squamous Epithelial <1 /hpf Cells Urine Transitional Epithelial <1 /hpf Cells Urine Renal Epithelial Cells <1 /hpf Urine Bacteria RARE /hpf Microscopic Urinalysis Comment CATH-CULTURE IND MDM Medical Decision Making Medical Screen Exam Complete: Yes Emergency Medical Condition: Yes Differential Diagnosis Differential diagnosis of altered mental status includes but is not limited to infection, electrolyte abnormality, neurological event, intoxication Narrative Course Patient presents to us via [facility] after an apparent seizure at home. She was found to be hypoglycemic. Last Impressions Head CT 11/27/16 0022 Signed Impressions: Service Date/Time: Sunday, November 27, 2016 00:28 - CONCLUSION: Unremarkable head CT except for some possible calcification within the basal ganglia bilaterally left greater than right. Unusual for a younger patient. Jamal Leon MD CBC & BMP Diagram 11/27/16 00:35 UA is remarkable for glucose and blood. I suspect that the blood is LEAK PATCHER in origin as she has just delivered a baby. The patient's mental status has not improved as expected with normalization of her glucose. She will be admitted for observation. Physician Communication Physician Communication Dr. Bailey will admit Diagnosis Primary Impression: Mental status change Qualified Code: R40.0 - Somnolence Additional Impression: Hypoglycemia Admitting Information Admitting Physician Requests: Observation Condition: Stable Ailyn Hartmann MD Nov 27, 2016 00:38
--- NOTE | 2016-11-27 00:46 | RADRPT ---
EXAM DATE/TIME: 11/27/2016 00:28 [facility] COMPARISON: No previous studies available for comparison. INDICATIONS : Altered mental status, possible seizure. RADIATION DOSE: 56.77 CTDIvol (mGy) MEDICAL HISTORY : Diabetes mellitus type 2. SURGICAL HISTORY : section. ENCOUNTER: Initial ACUITY: 1 day PAIN SCALE: 0/10 LOCATION: cranial TECHNIQUE: Multiple contiguous axial images were obtained of the head. Using automated exposure control and adj ustment of the mA and/or kV according to patient size, radiation dose was kept as low as reasonably a chievable to obtain optimal diagnostic quality images. FINDINGS: CEREBRUM: The ventricles are normal for age. No evidence of midline shift, mass lesion, hemorrhage or acute in farction. No extra-axial fluid collections are seen. Increased area of density in the left basal ruby glia could be calcification, unusual for such young age POSTERIOR FOSSA: The cerebellum and brainstem are intact. The 4th ventricle is midline. The cerebellopontine angle i s unremarkable. EXTRACRANIAL: The visualized portion of the orbits is intact. SKULL: The calvaria is intact. No evidence of skull fracture. CONCLUSION: Unremarkable head CT except for some possible calcification within the basal ganglia bilaterally left greater than right. Unusual for a younger patient. Jamal Leon MD on November 27, 2016 at 0:44 Board Certified Radiologist. This report was verified electronically.
[2016-11-27 00:58] LABS: AUTOMATED NEUTROPHIL # 5.7 TH/MM3 (1.8-7.7); BASOPHIL # 0.2 TH/MM3 (0-0.2); BASOPHIL % 1.7 % (0.0-2.0); EOSINOPHIL # 0.1 TH/MM3 (0-0.4); EOSINOPHIL % 1.5 % (0.0-4.0); HEMATOCRIT 35.6 % (35.0-46.0); LYMPH % 28.9 % (9.0-44.0); LYMPHOCYTE # 2.8 TH/MM3 (1.0-4.8); MEAN CELL VOLUME 84.8 FL (80.0-100.0); MEAN CORPUSCULAR HEMOGLOBIN 28.5 PG (27.0-34.0); MEAN CORPUSCULAR HGB CONC 33.6 % (32.0-36.0); MONO % 9.1 % (0.0-8.0); NEUT % 58.8 % (16.0-70.0); PLATELET COUNT 343 TH/MM3 (150-450); WHITE BLOOD COUNT 9.7 TH/MM3 (4.0-11.0)
[2016-11-27 01:00] LABS: HEMO FLAGS AUTO DIFF
[2016-11-27 01:22] LABS: BICARBONATE 26.2 MEQ/L (21.0-32.0); POTASSIUM 3.9 MEQ/L (3.5-5.1)
[2016-11-27 01:23] LABS: SCAN/DIFF AUTO DIFF CONFIRMED
[2016-11-27 03:01] LABS: BACTERIA, URINE RARE /hpf; BLOOD, URINE MOD (NEG); COMMENT (UR) CATH-CULTURE IND; CULTURE IF INDICATED CATH CULTURE IND; GLUCOSE,URINE 1000 mg/dL (NEG); KETONE, URINE NEG (NEG); NITRITE,URINE NEG (NEG); RENAL EPITHELIAL CELLS <1 /hpf; SQUAMOUS EPITHELIAL CELL URINE <1 /hpf (0-5); TRANSITIONAL EPI CELLS, URINE <1 /hpf; URINE COLOR YELLOW (YELLW/STRAW)
[2016-11-27] MEDS ORDERED: NALOXONE HCL 0.4 MG/ML AMP IV PRN (04:00)
[2016-11-27] MEDS ORDERED: DEXTROSE 50% IN WATER 50 ML VIAL(D50) IV PUSH PRN (04:00)
[2016-11-27] MEDS ORDERED: GLUCAGON 1 MG/ML VIAL OTHER PRN (04:00)
[2016-11-27] MEDS ORDERED: SODIUM CHLORIDE 0.9% FLUSH 10 ML FLUSH IV FLUSH PRN (04:00)
[2016-11-27] MEDS ORDERED: ONDANSETRON HCL 4 MG/2 ML VIAL IVP PRN (04:00)
[2016-11-27] MEDS ORDERED: ACETAMINOPHEN 325 MG TAB PO PRN (04:00)
--- NOTE | 2016-11-27 05:29 | HHI.HP ---
HPI Service [facility] Primary Care Physician No Primary Care Physician Admission Diagnosis AMS, hypoglycemia Diagnoses: Chief Complaint: Hypoglycemia, altered mental status Travel History International Travel<30 Days: No Contact w/Intl Traveler <30 Da: No Traveled to Known Affected Are: No History of Present Illness 21-year-old female with a medical history significant for type 1 diabetes, recent presented to the hospital with concern for seizure at home. Apparently EMS found the patient hypoglycemic with blood glucose in the 30s. She had altered mental status in the emergency room but is now back to her baseline during my evaluation. She reports compliance with her insulin therapy. She states she normally check her blood glucose 4-6 times a day. She did not take any extra insulin. She did require more insulin during her . She was delivered via about a week ago. She denies any fevers or chills. She denies any history of seizures. She does not remember the event. Review of Systems Constitutional: DENIES: Fever, Chills Respiratory: DENIES: Cough, Shortness of breath Gastrointestinal: COMPLAINS OF: Abdominal pain (incision site), DENIES: Nausea , Vomiting Except as stated in HPI: all other systems reviewed are Neg Past Family Social History Past Medical History Type 1 diabetes Past Surgical History Skull surgery for premature closure X1 Reported Medications Reported Meds & Active Scripts Active Reported Novolin R Inj (Insulin Human Regular) 1,000 Unit/10 Ml Vial 0 SQ DIRECTED Sliding Scale As Directed. Pain medication for incisional pain. Allergies: Coded Allergies: No Known Allergies (Unverified , 11/27/16) Family History Reviewed, non contributory. Social History Does not smoke, drink or use alcohol. Physical Exam Vital Signs Vital Signs Date Time Temp Pulse Resp B/P Pulse Ox O2 Delivery O2 Flow Rate FiO2 11/27/16 04:00 75 16 166/100 100 Room Air 11/27/16 01:31 61 13 135/91 100 Room Air 11/27/16 00:37 12 96 Room Air 11/27/16 00:00 97.2 11/26/16 23:53 55 11 130/87 Physical Exam GENERAL: This is a well-nourished, well-developed patient, in no apparent distress. SKIN: No rashes, ecchymoses or lesions. Cool and dry. HEAD: Atraumatic. Normocephalic. No temporal or scalp tenderness. EYES: Pupils equal round and reactive. Extraocular motions intact. No scleral icterus. No injection or drainage. ENT: Nose without bleeding, purulent drainage or septal hematoma. Throat without erythema, tonsillar hypertrophy or exudate. Uvula midline. Airway patent. NECK: Trachea midline. No JVD or lymphadenopathy. Supple, nontender, no meningeal signs. CARDIOVASCULAR: Regular rate and rhythm without murmurs, gallops, or rubs. RESPIRATORY: Clear to auscultation. Breath sounds equal bilaterally. No wheezes , rales, or rhonchi. GASTROINTESTINAL: Abdomen soft, non-tender, nondistended. No hepato-splenomegaly , or palpable masses. No guarding. MUSCULOSKELETAL: Extremities without clubbing, cyanosis, or edema. No joint tenderness, effusion, or edema noted. No calf tenderness. Negative Homans sign bilaterally. NEUROLOGICAL: Awake and alert. Cranial nerves II through XII intact. Motor and sensory grossly within normal limits. Five out of 5 muscle strength in all muscle groups. Normal speech. Laboratory Laboratory Tests Test 11/27/16 11/27/16 00:35 02:45 White Blood Count 9.7 Red Blood Count 4.20 Hemoglobin 11.9 Hematocrit 35.6 Mean Corpuscular Volume 84.8 Mean Corpuscular Hemoglobin 28.5 Mean Corpuscular Hemoglobin 33.6 Concent Red Cell Distribution Width 17.0 Platelet Count 343 Mean Platelet Volume 7.5 Neutrophils (%) (Auto) 58.8 Lymphocytes (%) (Auto) 28.9 Monocytes (%) (Auto) 9.1 Eosinophils (%) (Auto) 1.5 Basophils (%) (Auto) 1.7 Neutrophils # (Auto) 5.7 Lymphocytes # (Auto) 2.8 Monocytes # (Auto) 0.9 Eosinophils # (Auto) 0.1 Basophils # (Auto) 0.2 CBC Comment AUTO DIFF Differential Comment AUTO DIFF CONFIRMED Sodium Level 138 Potassium Level 3.9 Chloride Level 103 Carbon Dioxide Level 26.2 Anion Gap 9 Blood Urea Nitrogen 16 Creatinine 0.52 Estimat Glomerular Filtration 146 Rate Random Glucose 90 Calcium Level 9.0 Urine Color YELLOW Urine Turbidity CLEAR Urine pH 7.0 Urine Specific [place] 1.017 Urine Protein 100 Urine Glucose (UA) 1000 Urine Ketones NEG Urine Occult Blood MOD Urine Nitrite NEG Urine Bilirubin NEG Urine Urobilinogen LESS THAN 2.0 Urine Leukocyte Esterase NEG Urine RBC 177 Urine WBC 5 Urine Squamous Epithelial <1 Cells Urine Transitional Epithelial <1 Cells Urine Renal Epithelial Cells <1 Urine Bacteria RARE Microscopic Urinalysis Comment CATH-CULTURE IND Date/Time Procedure Status Source Growth 11/27/16 02:45 Urine Culture Received Urine Catheterized Urine Pending Result Diagram: 11/27/16 0035 11/27/16 0035 Imaging Last Impressions Head CT 11/27/16 0022 Signed Impressions: Service Date/Time: Sunday, November 27, 2016 00:28 - CONCLUSION: Unremarkable head CT except for some possible calcification within the basal ganglia bilaterally left greater than right. Unusual for a younger patient. Jamal Leno MD Assessment and Plan Problem List: (1) Type 1 diabetes ICD Code: E10.9 Status: Acute (2) Hypoglycemia ICD Code: E16.2 Status: Acute (3) Mental status change ICD Code: R41.82 Status: Acute Assessment and Plan 21-year-old female with reported seizure activity in the setting of hypoglycemia. Type 1 diabetes/hypoglycemia: Suspect hypoglycemia secondary to insulin. She is probably requiring less insulin now that she delivered - Patient will need to establish with a PCP or scientific research associate to titrate her insulin. Would probably benefit from a basal insulin. - Start on Accu-Chek with sliding scale insulin for now to help establish her insulin requirement. - Check hemoglobin A1C - Diabetic diet Reported seizure activity: This is likely related to her hypoglycemia event. However the head CT shows mild calcification of the basal ganglia, unusual in a young person per the radiologist report. I am not sure of the clinical significance of this finding given she had a reported seizure. Will consult neurology Discussed Condition With Dr. Hartmann Problem Qualifiers (1) Mental status change: Qualified Code: R40.0 - Somnolence Thomas Bailey MD Nov 27, 2016 05:29
[2016-11-27] MEDS: INSULIN ASPART SUPPLEMENTAL SCALE SQ SCH ×4 (06:27→21:31)
[2016-11-27] MEDS: oxyCODONE/ACETAMINOPHEN 5 MG/325 MG TAB PO PRN ×2 (10:17→16:56)
[2016-11-27] MEDS: INSULIN DETEMIR 100 UNITS/ML VIAL SQ SCH ×2 (12:19→20:52)
[2016-11-27 16:20] LABS: HEMOGLOBIN A1a 1.1 %; HEMOGLOBIN A1b 1.2 %; HEMOGLOBIN Ao 81.3 %; HEMOGLOBIN F 1.4 %; HEMOGLOBIN LA1C 1.5 %; HEMOGLOBIN P3 4.6 %
[2016-11-27] MEDS: SODIUM CHLORIDE 0.9% FLUSH 10 ML FLUSH IV FLUSH SCH ×2 (16:54→20:25)
[2016-11-27 19:13] LABS: BETA HCG QUANT 114 MIU/ML (0-5)
--- NOTE | 2016-11-27 19:20 | RADRPT ---
EXAM DATE/TIME: 11/27/2016 18:44 [facility] COMPARISON: CT BRAIN W/O CONTRAST, November 27, 2016, 0:28. INDICATIONS : Seizures. MEDICAL HISTORY : Diabetes mellitus type 1. Seizures. Hypertension. SURGICAL HISTORY : section. Plastic skull sx at age one week old. ENCOUNTER: Initial ACUITY: 2 day PAIN SCORE: 1/10 LOCATION: Bilateral cranial TECHNIQUE: Multiplanar, multisequence MRI of the brain was performed without contrast. FINDINGS: CEREBRUM: The ventricles are normal for age. No evidence of midline shift, mass lesion, hemorrhage or acute in farction. No extraaxial fluid collections are seen. The pituitary gland and suprasellar cistern are normal in configuration. WHITE MATTER: No significant signal abnormalities are seen in the white matter. POSTERIOR FOSSA: The cerebellum and brainstem are intact. The 4th ventricle is midline. The cerebellopontine angle is unremarkable. The cerebellar tonsils are normal in position. DIFFUSION IMAGING: There is mucoperiosteal thickening of the maxillary air cells. There is fluid in the mastoid air cell s, moderate on the right and small on the left. EXTRACRANIAL: The visualized portions of the orbits and paranasal sinuses are unremarkable. CONCLUSION: No acute intracranial abnormality. Noncontrast appearance of the brain within normal limits. There is sinusitis and apparent right greater than left mastoiditis in the proper clinical setting. Cyrus Ca MD on November 27, 2016 at 19:16 Board Certified Radiologist. This report was verified electronically.
--- NOTE | 2016-11-27 20:07 | MG ---
cc: HARRIETT GRADY M.D. Lab No: Date: 11/27/2016 Age: Sex: F Race: INTRODUCTION An EEG was obtained on this 21-year-old patient being evaluated for decreased responsiveness, diabetes mellitus. DESCRIPTION The patient is awake and asleep during the recording. The EEG is showing a lot of theta intermixed with some alpha rhythms bilaterally. There is some intermixed delta activity occasionally. There are low amplitude beta rhythms. The patient seems awake and drowsy. Hyperventilation disclosed mild generalized slowing. Occasionally there is suggestion of the slowing being slightly worse on the right. INTERPRETATION Mildly abnormal EEG because of mild slowing bilaterally questionably right more than left. The findings suggest a diffuse disturbance of cerebral function with questionable focal slowing on the right. No epileptiform features present. MD ROBERT Thornton/KK /6:17 PM /7:57 PM
[2016-11-28 00:40] VITALS: BP 170/101; PULSE 97; RESP 18; TEMP 98.7; O2SAT 97
[2016-11-28] MEDS: oxyCODONE/ACETAMINOPHEN 5 MG/325 MG TAB PO PRN ×3 (03:00→20:32)
[2016-11-28 05:39] LABS: BICARBONATE 27.7 MEQ/L (21.0-32.0); POTASSIUM 4.1 MEQ/L (3.5-5.1)
[2016-11-28 06:32] VITALS: BP 143/94; PULSE 80; RESP 18; TEMP 98.7; O2SAT 97
--- NOTE | 2016-11-28 06:51 | MB ---
cc: NAVDEEP WRAY DATE OF CONSULTATION 11/27/2016 REASON FOR CONSULTATION Seizure HISTORY OF PRESENT ILLNESS Ms. Washington is a very pleasant 71-year-old female who has a history of diabetes. Yesterday she had an episode of loss of consciousness and gram of seizure activity. EVAC was called. Her blood glucose was found to be 30. She states she did take her insulin, but did not miss any meals. She has never had any seizure in the past. She feels back to her baseline state. PAST MEDICAL HISTORY 1. Type 1 diabetes 2. history of skull surgery for premature closure. 3. in the past. MEDICATIONS Novolin insulin ALLERGIES None known. SOCIAL HISTORY No drug abuse or alcohol abuse. No tobacco use. NEUROLOGIC EXAMINATION VITAL SIGNS: Her blood pressure is 143/89, pulse 93, respirations are 20, temperature 98 degrees. Higher cortical functions normal. Cranial nerves II-XII are normal. A detailed motor exam, she has normal strength and tone of all groups. There are no focal deficit. Reflexes are symmetric. CT of the brain is normal, possible calcification of the basal ganglia bilaterally left greater than right. LABORATORY DATA White count 9700, hemoglobin 11.9, hematocrit 35.6%, platelet count 343,000. Sodium is 138, potassium 3.9, chloride 103, CO2 26.2, the BUN is 16, creatinine 0.52, GFR is 146, calcium is 9. Urinalysis the pH is 7, specific gravity 1.017, protein 100, glucose 1000, RBC 177. IMPRESSION Seizure probably related to hypoglycemia. RECOMMENDATIONS We will obtain an EEG as well as an MRI of the brain to be sure there is no other potential etiologies. MD JHONY Valles/ERA /6:22 PM /6:47 AM
[2016-11-28] MEDS: INSULIN ASPART SUPPLEMENTAL SCALE SQ SCH ×4 (07:00→20:33)
[2016-11-28 07:52] VITALS: BP 150/98; PULSE 82; RESP 16; TEMP 98.4; O2SAT 97
[2016-11-28] MEDS: SODIUM CHLORIDE 0.9% FLUSH 10 ML FLUSH IV FLUSH SCH ×2 (08:26→20:33)
[2016-11-28] MEDS: INSULIN DETEMIR 100 UNITS/ML VIAL SQ SCH (08:26)
[2016-11-28 11:49] VITALS: BP 146/70; PULSE 87; RESP 16; TEMP 98.6; O2SAT 98
[2016-11-28 15:44] VITALS: BP 153/97; PULSE 100; RESP 14; TEMP 98.5; O2SAT 98
--- NOTE | 2016-11-28 17:07 | HHI.PR ---
Subjective Remarks Follow up for hypoglycemia and seizure. The patient reports her normal diabetic regimen insulin was 20u of Humalog and 4u of regular insulin in the morning. She does also report recent confusion with her dosing after her . No further seizure activity overnight. She wants to go home although with blood glucose dropping to 36 last night, she agrees to stay in the hospital for close monitoring of her blood glucose. Objective Vitals Vital Signs Date Time Temp Pulse Resp B/P Pulse Ox O2 Delivery O2 Flow Rate FiO2 11/28/16 15:46 16 11/28/16 15:44 98.5 100 14 153/97 98 11/28/16 11:49 98.6 87 16 146/70 98 11/28/16 07:52 98.4 82 16 150/98 97 11/28/16 06:32 98.7 80 18 143/94 97 11/28/16 00:40 98.7 97 18 170/101 97 11/27/16 21:32 97.7 91 18 149/88 96 11/27/16 21:28 14 Result Diagram: 11/27/16 0035 11/28/16 0355 Imaging Last Impressions Head CT 11/27/16 0022 Signed Impressions: Service Date/Time: Sunday, November 27, 2016 00:28 - CONCLUSION: Unremarkable head CT except for some possible calcification within the basal ganglia bilaterally left greater than right. Unusual for a younger patient. Jamal Leon MD Brain MRI 11/27/16 0000 Signed Impressions: Service Date/Time: Sunday, November 27, 2016 18:44 - CONCLUSION: No acute intracranial abnormality. Noncontrast appearance of the brain within normal limits. There is sinusitis and apparent right greater than left mastoiditis in the proper clinical setting. Cyrus Ca MD Objective Remarks GENERAL: Well-nourished, well-developed young female patient in [facility]. SKIN: Warm and dry. No rash. HEENT: Normocephalic. Atraumatic.Pupils equal and round. Mucous membranes pink and moist. NECK: Supple. Trachea midline. CARDIOVASCULAR: Regular rate and rhythm. S1, S2 noted. No murmur appreciated. RESPIRATORY: No accessory muscle use. Clear to auscultation. Breath sounds equal bilaterally. GASTROINTESTINAL: Abdomen soft, non-tender, nondistended. Normoactive bowel sounds x4. MUSCULOSKELETAL: No obvious deformities. Extremities without clubbing, cyanosis , or edema. NEUROLOGICAL: Awake and alert. No obvious cranial nerve deficits. Motor grossly within normal limits. Normal speech. PSYCHIATRIC: Appropriate mood and affect; insight and judgment normal. Medications and IVs Current Medications Medications (Trade) Dose Ordered Sig/Shantanu Route Start Time Stop Time Status Last Admin (NS Flush) 2 ml UNSCH PRN IV FLUSH 11/27/16 04:00 (NS Flush) 2 ml BID IV FLUSH 11/27/16 09:00 11/28/16 08:26 (Tylenol) 650 mg Q4H PRN PO 11/27/16 04:00 11/27/16 20:26 (Zofran Inj) 4 mg Q6H PRN IVP 11/27/16 04:00 (Narcan Inj) 0.4 mg UNSCH PRN IV 11/27/16 04:00 (D50w (Vial) Inj) 25 ml UNSCH PRN IV PUSH 11/27/16 04:00 11/27/16 21:03 (Glucagon Inj) 1 mg UNSCH PRN OTHER 11/27/16 04:00 (Percocet 5-325 Mg) 1 tab Q6H PRN PO 11/27/16 09:30 11/28/16 14:46 (Levemir Inj) 5 units DAILY SQ 11/29/16 09:00 A/P Problem List: (1) Type 1 diabetes ICD Code: E10.9 Status: Acute (2) Hypoglycemia ICD Code: E16.2 Status: Acute (3) Mental status change ICD Code: R41.82 Status: Acute Assessment and Plan 21-year-old female with reported seizure activity in the setting of hypoglycemia. Type 1 diabetes with recurrent hypoglycemia: Suspect hypoglycemia secondary to insulin. She is probably requiring less insulin now that she delivered - Patient will need to establish with a PCP or gear and spline grinder to titrate her insulin. Would probably benefit from a basal insulin. - Start on Accu-Chek with sliding scale insulin to help establish her insulin requirement. - Start Levemir 5u in am, avoid pm insulin as patient's blood glucose drops at night - hemoglobin A1C 8.6 - Diabetic diet - consult industrial manufacturing technician Reported seizure activity: likely related to her hypoglycemia event. However the head CT shows mild calcification of the basal ganglia, unusual in a young person per the radiologist report. I am not sure of the clinical significance of this finding given she had a reported seizure. -consult neurology, seen by Dr. York, seizure likely related to hypoglycemia -EEG mildly abnormal with bilateral slowing, however no epileptiform activity S/p : 2 weeks ago -continue pain control with Percocet prn DVT Prophylaxis: SCDs Written by Manjula Ansari, acting as scribe for Dr. Alejandre on 11/28/16 at 17: 06. Attending Statement This note was transcribed by scribe Manjula Ansari. I, Dr. Tran Alejandre personally performed the history, physical exam, and medical decision making; and confirmed the accuracy of the information in the transcribed note. Authenticated by Dr. Tran Alejandre on 11/28/16 at 18:13. Problem Qualifiers (1) Mental status change: Qualified Code: R40.0 - Somnolence Manjula Ansari PA-C Nov 28, 2016 17:07 Tran Alejandre MD Nov 28, 2016 18:14
[2016-11-28 20:00] VITALS: BP 158/90; PULSE 93; RESP 18; TEMP 98.4; O2SAT 97
--- NOTE | 2016-11-28 20:50 | HHI.PR ---
Review/Management Diagnosis seizure --due to hypoglycemia Plan would not recommend anticonvulsant therapy, ok from neurology standpoint to discharge home tomorrow if ok with medicine service I told patient not to drive for at least 6 months of being seizure free. Diagnosis/Plan: Subjective Subjective Comments No acute events reported No recurrent sz reported Active Medications Current Medications Medications (Trade) Dose Ordered Sig/Shantanu Route Start Time Stop Time Status Last Admin (NS Flush) 2 ml UNSCH PRN IV FLUSH 11/27/16 04:00 (NS Flush) 2 ml BID IV FLUSH 11/27/16 09:00 11/28/16 20:33 (Tylenol) 650 mg Q4H PRN PO 11/27/16 04:00 11/27/16 20:26 (Zofran Inj) 4 mg Q6H PRN IVP 11/27/16 04:00 (Narcan Inj) 0.4 mg UNSCH PRN IV 11/27/16 04:00 (D50w (Vial) Inj) 25 ml UNSCH PRN IV PUSH 11/27/16 04:00 11/27/16 21:03 (Glucagon Inj) 1 mg UNSCH PRN OTHER 11/27/16 04:00 (Percocet 5-325 Mg) 1 tab Q6H PRN PO 11/27/16 09:30 11/28/16 20:32 (Levemir Inj) 5 units DAILY SQ 11/29/16 09:00 Allergies Allergies Coded Allergies No Known Allergies (Unverified11/27/16) Exam I&O / VS Vital Signs Date Time Temp Pulse Resp B/P Pulse Ox O2 Delivery O2 Flow Rate FiO2 11/28/16 15:46 16 11/28/16 15:44 98.5 100 14 153/97 98 11/28/16 11:49 98.6 87 16 146/70 98 11/28/16 07:52 98.4 82 16 150/98 97 11/28/16 06:32 98.7 80 18 143/94 97 11/28/16 00:40 98.7 97 18 170/101 97 11/27/16 21:32 97.7 91 18 149/88 96 11/27/16 21:28 14 Exam Comments alert, oriented times 3 CN normal Motor--no focal deficits Objective Radiology Results MRI brain normal EEG mild bilateral slowing Micro and Labs Laboratory Tests Test 11/28/16 03:55 Sodium Level 135 Potassium Level 4.1 Chloride Level 98 Carbon Dioxide Level 27.7 Anion Gap 9 Blood Urea Nitrogen 20 Creatinine 0.53 Estimat Glomerular Filtration 143 Rate Random Glucose 226 Calcium Level 8.9 Date/Time Procedure Status Source Growth 11/27/16 02:45 Urine Culture - Preliminary Resulted Urine Catheterized Urine IMMATURE GROWTH - REINCUBATE Shawn York PhD Nov 28, 2016 20:50
[2016-11-29] VITALS: BP 139/83; PULSE 96; RESP 19; TEMP 98.2; O2SAT 95
[2016-11-29 04:00] VITALS: BP 141/82; PULSE 87; RESP 19; TEMP 98.2; O2SAT 96
[2016-11-29] MEDS: oxyCODONE/ACETAMINOPHEN 5 MG/325 MG TAB PO PRN (04:22)
[2016-11-29] MEDS: INSULIN ASPART SUPPLEMENTAL SCALE SQ SCH ×2 (06:15→11:00)
[2016-11-29] MEDS ORDERED: LEVEMIR SQ (08:07)
--- NOTE | 2016-11-29 08:11 | HHI.DCPOC ---
Discharge Care Plan Diagnosis: (1) Seizure (2) Type 1 diabetes (3) Hypoglycemia Goals to Promote Your Health * To prevent worsening of your condition and complications * To maintain your health at the optimal level Directions to Meet Your Goals Take your medications as prescribed Follow your dietary instruction Follow activity as directed Keep your appointments as scheduled Take your immunizations and boosters as scheduled If your symptoms worsen call your PCP, if no PCP go to Urgent Care Center or Emergency Room Smoking is Dangerous to Your Health. Avoid second hand smoke Call the 24-hour hour crisis hotline for domestic abuse at Manjula Ansari PA-C Nov 29, 2016 8:11 am
[2016-11-29] MEDS: SODIUM CHLORIDE 0.9% FLUSH 10 ML FLUSH IV FLUSH SCH (08:43)
[2016-11-29] MEDS ORDERED: INSULIN DETEMIR 100 UNITS/ML VIAL SQ SCH (09:00)
[2016-11-29 11:43] VITALS: BP 152/99; PULSE 86; RESP 14; TEMP 97.9; O2SAT 99
[2016-11-29] MEDS ORDERED: NOVORP2 SQ (14:40)
--- NOTE | 2016-11-29 14:41 | HHI.PR ---
Objective Vitals Vital Signs Date Time Temp Pulse Resp B/P Pulse Ox O2 Delivery O2 Flow Rate FiO2 11/29/16 11:43 97.9 86 14 152/99 99 11/29/16 05:41 16 11/29/16 04:00 98.2 87 19 141/82 96 11/29/16 00:00 98.2 96 19 139/83 95 11/28/16 20:00 98.4 93 18 158/90 97 11/28/16 15:44 98.5 100 14 153/97 98 Result Diagram: 11/27/16 0035 11/28/16 0355 Objective Remarks GENERAL: Well-nourished, well-developed young female patient in [employer]. SKIN: Warm and dry. No rash. HEENT: Normocephalic. Atraumatic.Pupils equal and round. Mucous membranes pink and moist. NECK: Supple. Trachea midline. CARDIOVASCULAR: Regular rate and rhythm. S1, S2 noted. No murmur appreciated. RESPIRATORY: No accessory muscle use. Clear to auscultation. Breath sounds equal bilaterally. GASTROINTESTINAL: Abdomen soft, non-tender, nondistended. Normoactive bowel sounds x4. MUSCULOSKELETAL: No obvious deformities. Extremities without clubbing, cyanosis , or edema. NEUROLOGICAL: Awake and alert. No obvious cranial nerve deficits. Motor grossly within normal limits. Normal speech. PSYCHIATRIC: Appropriate mood and affect; insight and judgment normal. A/P Problem List: (1) Type 1 diabetes ICD Code: E10.9 Status: Acute (2) Hypoglycemia ICD Code: E16.2 Status: Acute (3) Mental status change ICD Code: R41.82 Status: Acute Assessment and Plan 21-year-old female with reported seizure activity in the setting of hypoglycemia. Type 1 diabetes with recurrent hypoglycemia: Suspect hypoglycemia secondary to insulin. She is probably requiring less insulin now that she delivered - Patient will need to establish with a PCP or osha inspector to titrate her insulin. Would probably benefit from a basal insulin. - Start on Accu-Chek with sliding scale insulin to help establish her insulin requirement. - Start Levemir 5u in am, avoid pm insulin as patient's blood glucose drops at night - hemoglobin A1C 8.6 - Diabetic diet - consult supervisor cured meats Reported seizure activity: likely related to her hypoglycemia event. However the head CT shows mild calcification of the basal ganglia, unusual in a young person per the radiologist report. I am not sure of the clinical significance of this finding given she had a reported seizure. -consult neurology, seen by Dr. York, seizure likely related to hypoglycemia -EEG mildly abnormal with bilateral slowing, however no epileptiform activity S/p : 2 weeks ago -continue pain control with Percocet prn DVT Prophylaxis: SCDs Written by Manjula Ansari, acting as scribe for Dr. Alejandre on 11/28/16 at 17: 06. Problem Qualifiers (1) Mental status change: Qualified Code: R40.0 - Somnolence Manjula Ansari PA-C Nov 29, 2016 2:41 pm
[2016-11-29] MEDS ORDERED: GLUC40GE PO (14:48)
--- NOTE | 2016-11-29 15:09 | HHI.DS ---
cc: Shawn York PhD Discharge Summary Admission Date Nov 26, 2016 Discharge Date: Nov 29, 2016 Admitting Diagnosis AMS, hypoglycemia (1) Seizure ICD Code: R56.9 Diagnosis: Principal (2) Type 1 diabetes ICD Code: E10.9 Diagnosis: Principal (3) Hypoglycemia ICD Code: E16.2 Diagnosis: Principal (4) Mental status change ICD Code: R41.82 Diagnosis: Secondary Procedures None. Brief History - From Admission 21-year-old female with a medical history significant for type 1 diabetes, recent presented to the hospital with concern for seizure at home. Apparently EMS found the patient hypoglycemic with blood glucose in the 30s. She had altered mental status in the emergency room but is now back to her baseline during my evaluation. She reports compliance with her insulin therapy. She states she normally check her blood glucose 4-6 times a day. She did not take any extra insulin. She did require more insulin during her . She was delivered via about a week ago. She denies any fevers or chills. She denies any history of seizures. She does not remember the event. CBC/BMP: 11/27/16 0035 11/28/16 0355 Significant Findings Laboratory Tests Test 11/27/16 11/27/16 11/28/16 00:35 02:45 03:55 Monocytes (%) (Auto) 9.1 % (0.0-8.0) Hemoglobin A1c 8.6 % (4.3-6.0) Human Chorionic Gonadotropin, 114 MIU/ML Quant (0-5) Urine Protein 100 mg/dL (NEG-TRACE) Urine Glucose (UA) 1000 mg/dL (NEG) Urine Occult Blood MOD (NEG) Urine RBC 177 /hpf (0-3) Urine Bacteria RARE /hpf (NONE) Sodium Level 135 MEQ/L (136-145) Blood Urea Nitrogen 20 MG/DL (7-18) Random Glucose 226 MG/DL (74-106) Imaging Last Impressions Head CT 11/27/16 0022 Signed Impressions: Service Date/Time: Sunday, November 27, 2016 00:28 - CONCLUSION: Unremarkable head CT except for some possible calcification within the basal ganglia bilaterally left greater than right. Unusual for a younger patient. Jamal Leon MD Brain MRI 11/27/16 0000 Signed Impressions: Service Date/Time: Sunday, November 27, 2016 18:44 - CONCLUSION: No acute intracranial abnormality. Noncontrast appearance of the brain within normal limits. There is sinusitis and apparent right greater than left mastoiditis in the proper clinical setting. Cyrus Ca MD PE at Discharge GENERAL: Well-nourished, well-developed young female patient in NAD. SKIN: Warm and dry. No rash. HEENT: Normocephalic. Atraumatic.Pupils equal and round. Mucous membranes pink and moist. NECK: Supple. Trachea midline. CARDIOVASCULAR: Regular rate and rhythm. S1, S2 noted. No murmur appreciated. RESPIRATORY: No accessory muscle use. Clear to auscultation. Breath sounds equal bilaterally. GASTROINTESTINAL: Abdomen soft, non-tender, nondistended. Normoactive bowel sounds x4. MUSCULOSKELETAL: No obvious deformities. Extremities without clubbing, cyanosis , or edema. NEUROLOGICAL: Awake and alert. No obvious cranial nerve deficits. Motor grossly within normal limits. Normal speech. PSYCHIATRIC: Appropriate mood and affect; insight and judgment normal. Pt update on day of discharge Follow up for seizure, hypoglycemia. The patient reports feeling well again today. Blood sugars well controlled, ranging 90-250 over the past 24hours. No further seizure activity. Hospital Course 21-year-old female with reported seizure activity in the setting of hypoglycemia. Type 1 diabetes with recurrent hypoglycemia: Suspect hypoglycemia secondary to insulin. She is probably requiring less insulin now that she delivered - Patient will need to establish with a PCP or hydrotechnical specialist to titrate her insulin. - Accu-Chek with sliding scale insulin to help establish her insulin requirement. - Started Levemir 5u in am, avoid pm insulin as patient's blood glucose drops at night - hemoglobin A1C 8.6 - Diabetic diet - consult religious educator - patient's blood sugars remained stable, 97-250 over the past 24 hours - discharge on Levemir 5u in am and Novolin R low dose SSI, thoroughly discussed with the patient who verbalized understanding on insulin regimen - also given prescription for po glucagon at discharge for rescue Reported seizure activity: likely related to her hypoglycemia event. However the head CT shows mild calcification of the basal ganglia, unusual in a young person per the radiologist report. I am not sure of the clinical significance of this finding given she had a reported seizure. -consult neurology, seen by Dr. York, seizure likely related to hypoglycemia -EEG mildly abnormal with bilateral slowing, however no epileptiform activity -no AED recommended by Dr. York -cleared for discharge by neurology, no driving [id number] (patient does not drive ) S/p : 2 weeks ago -continue pain control with Percocet prn DVT Prophylaxis: SCDs Written by Manjula Ansari, acting as scribe for Dr. Alejandre on 11/29/16 at 14: 50. Pt Condition on Discharge: Stable Discharge Disposition: Discharge Home Discharge Time: > 30 minutes Discharge Instructions DIET: Follow Instructions for: As Tolerated, No Restrictions Activities you can perform: Regular-No Restrictions Other Activity Instructions: NO DRIVING. Follow up Referrals: Neurology - 2 Weeks with Shawn York PhD MD PCP Follow-up - 1 Week New Medications: Dextrose Gel (Glucose Gel) 40 % Gel 1 TUBE PO DIRECTED Take if blood glucose < 70 Blood Sugar Management #3 Ref 3 TUBE Insulin Human Regular Inj (Novolin R Inj) 1,000 Unit/10 Ml Vial 1-9 UNITS SQ ACHS sugars 200-249,(3)units; sugars 250-299,(5) units sugars 300- 349,(7)units; sugars > 349,(9)units Blood Sugar Management #10 Ref 0 ML Insulin Detemir Inj (Levemir Inj) 1,000 unit/ 10 ML Vial 5 UNITS SQ DAILY Blood Sugar Management #100 INJECTION Discontinued Medications: Insulin Human Regular Inj (Novolin R Inj) 1,000 Unit/10 Ml Vial 0 SQ DIRECTED Sliding Scale As Directed. Blood Sugar Management #10 Ref 0 ML Additional Information This note was transcribed by scribe. I, Dr. Tran Alejandre personally performed the history, physical exam, and medical decision making; and confirmed the accuracy of the information in the transcribed note. Authenticated by Dr. Tran Alejandre on 12/01/16 at 13:41. Manjula Ansari PA-C Nov 29, 2016 15:09 Tran Alejandre MD Dec 01, 2016 13:41
[2016-11-29 18:49] VITALS: BP 146/69; PULSE 74; RESP 18; TEMP 97.4; O2SAT 96
[2016-12-01] MEDS ORDERED: VENTAER INH (09:59)
[2016-12-01] MEDS ORDERED: PEN31MIS2 (10:20)
[2016-12-01] MEDS ORDERED: NOVORP2 SQ (10:22)
[2016-12-01] MEDS ORDERED: ONETTES4 (10:22)
== END 2016-11-29 16:49 | disposition home or self-care (01) | DRG 776 ==
LOC: NEPC 23:49 → NEDA 11-27 03:30 → NEPFCDU 11-27 06:29 → OBSVTOIN 11-28 10:13 → MERGE 11-28 10:13
PROVIDERS: ADMIT Family Medicine; ATTEND Family Medicine
DX: O24.03 Pre-existing type 1 diabetes mellitus, in the puerperium (principal); G40.89 Other seizures; E10.649 Type 1 diabetes mellitus with hypoglycemia without coma; Z79.4 Long term (current) use of insulin
CPT/HCPCS: 70450; 70551; 80048; 81001; 82948; 83036; 84702; 85025; 87086; 95819; G0378; J1815; P9612

== ENCOUNTER 2016-12-12 16:32 | Emergency (ER) | payer MEDICAID ==
[~2016-12-12] VITALS: Ht 157.5 cm; Wt 58.0 kg
[~2016-12-12 16:32] MED LIST changes: -ALBU8I INH; -FERR325T PO; +GLUC40GE PO; -GLUCOMTESTSTRIPS XX; -IBUP-232 PO; +LEVEMIR SQ; -NOVONP2 SQ; +ONETTES4; -OXYC1TAB63 PO; -PREN29TA PO; -SENN1TAB PO; +VENTAER INH
[2016-12-12 16:34] VITALS: BP 134/87; PULSE 93; RESP 20; TEMP 98.6; O2SAT 97
--- NOTE | 2016-12-12 16:40 | PD ---
Physical Exam Time Seen by Provider: 16:37 Narrative 21 y/o female here for wound check. Underwent early november, she has been having pain at the incision site for the past 3 days. Vital signs reviewed. Seen at triage desk. Awaiting bed placement. Data Data Last Documented VS Vital Signs Date Time Temp Pulse Resp B/P Pulse Ox O2 Delivery O2 Flow Rate FiO2 12/12/16 16:34 98.6 93 20 134/87 97 MDM Medical Record Reviewed: Yes Supervised Visit with NAHID: No Josiah Dominguez December 12, 2016 16:40
[2016-12-12] MEDS ORDERED: IBUPROFEN 800 MG TAB PO ONE (18:00)
[2016-12-12] MEDS ORDERED: CYCLOBENZAPRINE HCL 10 MG TAB PO ONE (18:00)
--- NOTE | 2016-12-12 18:12 | PD ---
HPI Chief Complaint: Wound/Suture/Staple Re-Check Time Seen by Provider: 17:30 Travel History International Travel<30 days: No Contact w/Intl Traveler<30days: No Traveled to known affect area: No History of Present Illness HPI Patient is a 21-year-old female presenting to emergency for evaluation of left lower back pain. Patient states it's been ongoing for 2-3 days, she denies any fever, chills, nausea, vomiting, abdominal pain, chest pain or dysuria. She states the pain is sharp and at times it hurts to breathe. Patient does report walking up 3 flights of stairs with her baby to get to her apartment. She has no other complaints at this time. Patient is a type II diabetic, she states that her fasting blood sugars have been in the mid 100s in the morning. PFSH Past Medical History Arthritis: No Asthma: Yes Blood Disorders: No Anxiety: No Depression: No Heart Rhythm Problems: No Cancer: No High Cholesterol: Yes Chemotherapy: No Chest Pain: No Congestive Heart Failure: No COPD: No Cerebrovascular Accident: No Developmental Delay: No Diabetes: Yes (INSULIN) Diminished Hearing: No Endocrine: Yes Insomnia: Yes Respiratory: Yes (asthma) Immunizations Current: Yes PNEUMOCCOCAL Vaccine (Year): 1 ?: Not Menopausal: No : 4 Para: 0 Miscarriage: 3 Ovarian Cysts: Yes Past Surgical History Abdominal Surgery: No AICD: No Arteriovenous Shunt: No Cardiac Surgery: No Section: Yes (11/17/2016) Ear Surgery: No Endocrine Surgery: No Eye Surgery: No Genitourinary Surgery: No Gynecologic Surgery: No Neurologic Surgery: Yes (PLASTIC SKULL SURGERY) Oral Surgery: No Thoracic Surgery: No Other Surgery: Yes (plastic skull surgery) Social History Alcohol Use: No Tobacco Use: No Substance Use: No Allergies-Medications (Allergen,Severity, Reaction): Coded Allergies: Macrobid (Verified Allergy, Severe, Rash, 12/12/16) Coconut (Verified Allergy, Intermediate, Rash, 12/12/16) *MDRO Multi-Drug Resistant Organism (Verified Adverse Reaction, Unknown, ) MRSA PCR Screen POSITIVE - 02/24/2015 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 ESBL+E.Coli (urine) - 07/2015 Reported Meds & Prescriptions Reported Meds & Active Scripts Active Novolin R Inj (Insulin Human Regular) 1,000 Unit/10 Ml Vial 10 Units SQ BID@ 17 Review of Systems Except as stated in HPI: all other systems reviewed are Neg HENT: No: Headaches Cardiovascular: No: Chest Pain or Discomfort Respiratory: No: Shortness of Breath Gastrointestinal: No: Abdominal Pain Genitourinary: No: Dysuria, Discharge, Vaginal Bleeding Musculoskeletal: Positive: Myalgias, Pain Physical Exam Narrative GENERAL: Well-nourished, well-developed patient. SKIN: Focused skin assessment warm/dry. Incision from previous is clean, dry, intact, no erythema noted, nontender to palpation. No signs or symptoms of infection noted. HEAD: Normocephalic. EYES: No scleral icterus. No injection or drainage. NECK: Supple, trachea midline. No JVD or lymphadenopathy. CARDIOVASCULAR: Regular rate and rhythm without murmurs, gallops, or rubs. RESPIRATORY: Breath sounds equal bilaterally. No accessory muscle use. GASTROINTESTINAL: Abdomen soft, non-tender, nondistended. Positive bowel sounds , no rebound, no guarding MUSCULOSKELETAL: No cyanosis, or edema. Tenderness to palpation in left first musculature in the lumbar region, no CVAT bilaterally. BACK: Nontender without obvious deformity. No CVA tenderness. Data Data Last Documented VS Vital Signs Date Time Temp Pulse Resp B/P Pulse Ox O2 Delivery O2 Flow Rate FiO2 12/12/16 16:34 98.6 93 20 134/87 97 Orders Urinalysis - C+S If Indicated (12/12/16 17:46) Ibuprofen (Motrin) (12/12/16 18:00) Cyclobenzaprine (Flexeril) (12/12/16 18:00) Urine Culture (12/12/16 17:48) Labs Laboratory Tests Test 12/12/16 17:48 Urine Color YELLOW Urine Turbidity CLEAR Urine pH 6.5 Urine Specific [place] 1.024 Urine Protein 100 mg/dL Urine Glucose (UA) 1000 mg/dL Urine Ketones NEG mg/dL Urine Occult Blood MOD Urine Nitrite NEG Urine Bilirubin NEG Urine Urobilinogen LESS THAN 2.0 MG/DL Urine Leukocyte Esterase LARGE Urine RBC 2 /hpf Urine WBC 17 /hpf Urine Squamous Epithelial 3 /hpf Cells Urine Bacteria RARE /hpf Urine Mucus FEW /lpf Microscopic Urinalysis Comment CULTURE INDICATED MDM Medical Decision Making Medical Screen Exam Complete: Yes Emergency Medical Condition: Yes Medical Record Reviewed: Yes Interpretation(s) Vital Signs Date Time Temp Pulse Resp B/P Pulse Ox O2 Delivery O2 Flow Rate FiO2 12/12/16 16:34 98.6 93 20 134/87 97 Differential Diagnosis Strain versus spasm versus discogenic pain versus urinary tract infection versus other Narrative Course Patient is a 21-year-old female presenting to emergency department for evaluation of left back pain. She has not breast-feeding. She will be given ibuprofen and Flexeril in the emergency department has pain does appear consistent with musculoskeletal pain. Vital signs are stable, we'll check a urinalysis. Patient initially complained of pain at her incision site from her section a month ago. Upon my assessment she denied any pain at that site and complained of the left back pain. Patient's vital signs are stable. Urinalysis is indicative of a urinary tract infection, she will be treated with antibiotics, she is advised to increase fluid intake. She is advised to follow- up with her primary doctor/CONTROLS ENGINEER. She is advised to return to emergency department for any new or worsening symptoms. Patient verbalized understanding of these instructions. Patient is stable for discharge. Diagnosis Primary Impression: Urinary tract infection Qualified Code: N39.0 - Urinary tract infection with hematuria, site unspecified Referrals: Primary Care Physician 3 days Patient Instructions: General Instructions, Urinary Tract Infection in Women ( ED) Additional Instructions: Maintain adequate fluid intake Complete full course of antibiotics as prescribed Follow-up with her primary doctor or at the [facility] Return to emergency department for any new or worsening symptoms Med/Other Pt SpecificInfo: Prescription(s) given Scripts Ciprofloxacin 500 Mg [id number] Mg PO BID 5 Days Ref 0 Prov:Gladis Khanna 12/12/16 Disposition: 01 DISCHARGE HOME Condition: Stable Gladis Khanna December 12, 2016 18:12
[2016-12-12 18:24] LABS: BACTERIA, URINE RARE /hpf; BLOOD, URINE MOD (NEG); GLUCOSE,URINE 1000 mg/dL (NEG); KETONE, URINE NEG (NEG); MUCUS URINE FEW /lpf (OCC); NITRITE,URINE NEG (NEG); PH, URINE 6.5 (5.0-8.5); SQUAMOUS EPITHELIAL CELL URINE 3 /hpf (0-5); URINE COLOR YELLOW (YELLW/STRAW)
[2016-12-12 18:27] LABS: COMMENT (UR) CULTURE INDICATED; CULTURE IF INDICATED CULTURE INDICATED
[2016-12-12] MEDS ORDERED: CIPR500T2 PO (18:46)
== END 2016-12-12 19:05 | disposition home or self-care (01) ==
LOC: NEPD 16:32
DX: N39.0 Urinary tract infection, site not specified (principal); B96.20 Unspecified Escherichia coli [E. coli] as the cause of diseases classified elsewhere; E11.9 Type 2 diabetes mellitus without complications; Z79.4 Long term (current) use of insulin
CPT/HCPCS: 81001; 87077; 87086; 87186; 99283

== ENCOUNTER 2017-03-09 22:02 | Emergency (ER) | payer MEDICAID ==
[~2017-03-09] VITALS: Ht 157.5 cm; Wt 54.0 kg
[~2017-03-09 22:02] MED LIST changes: +CIPR500T2 PO; -LABE200T2 PO; -ONETTES4; -PEN31MIS2; -VENTAER INH
[2017-03-09 22:08] VITALS: BP 122/82; PULSE 88; RESP 15; TEMP 98.8; O2SAT 97
[2017-03-09] MEDS ORDERED: SODIUM CHLOR 0.9% 1000 ML INJ 1,000 ML IV SCH (23:43)
--- NOTE | 2017-03-09 23:43 | PD ---
HPI Chief Complaint: Pain: Acute or Chronic Time Seen by Provider: 23:43 Travel History International Travel<30 days: No Contact w/Intl Traveler<30days: No Traveled to known affect area: No History of Present Illness HPI 21 year-old female history type 1 diabetes presents to emergency department for evaluation of nausea and vomiting. Patient states she has no been able to keep anything down today. She does report left hip pain since having a child and November. Believe she may have pulled a muscle. Denies abdominal pain. One bout of diarrhea. No urinary symptoms. No fever or chills. No other symptoms to report. PFSH Past Medical History Arthritis: No Asthma: No Blood Disorders: No Anxiety: No Depression: No Heart Rhythm Problems: No Cancer: No Cardiovascular Problems: No High Cholesterol: No Chemotherapy: No Chest Pain: No Congestive Heart Failure: No COPD: No Cerebrovascular Accident: No Developmental Delay: No Diabetes: Yes (DM type 1) Diminished Hearing: No Endocrine: No Genitourinary: No Immune Disorder: No Insomnia: Yes Musculoskeletal: No Neurologic: No Reproductive: No Respiratory: Yes (asthma) Immunizations Current: Yes Radiation Therapy: No Sleep Apnea: No PNEUMOCCOCAL Vaccine (Year): 1 ?: Not Menopausal: No : 1 Para: 1 Miscarriage: 3 Ovarian Cysts: Yes Past Surgical History Abdominal Surgery: No AICD: No Arteriovenous Shunt: No Cardiac Surgery: No Section: Yes (11/17/2016) Ear Surgery: No Endocrine Surgery: No Eye Surgery: No Genitourinary Surgery: No Gynecologic Surgery: No Neurologic Surgery: Yes (PLASTIC SKULL SURGERY) Oral Surgery: No Thoracic Surgery: No Other Surgery: Yes (plastic skull surgery) Social History Alcohol Use: No Tobacco Use: No Substance Use: No Allergies-Medications (Allergen,Severity, Reaction): Coded Allergies: Macrobid (Verified Allergy, Severe, Rash, 12/12/16) Coconut (Verified Allergy, Intermediate, Rash, 12/12/16) *MDRO Multi-Drug Resistant Organism (Verified Adverse Reaction, Unknown, ) MRSA PCR Screen POSITIVE - 02/24/2015 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 ESBL+E.Coli (urine) - 07/2015 Reported Meds & Prescriptions Reported Meds & Active Scripts Active Reported Flovent Hfa 10.6 GM Inh (Fluticasone Propionate) 44 Mcg/Act Inh 2 Puff INH DAILY Use daily at the same time. Novolin R Inj (Insulin Human Regular) 1,000 Unit/10 Ml Vial 15 Units SQ BID Lantus Inj (Insulin Glargine) 1,000 Unit/10 Ml Vial 15 Units SQ HS Review of Systems Except as stated in HPI: all other systems reviewed are Neg Physical Exam Narrative GENERAL: Well-nourished, well-developed female patient in no acute distress SKIN: Focused skin assessment warm/dry. HEAD: Normocephalic. EYES: No scleral icterus. No injection or drainage. NECK: Supple, trachea midline. No JVD or lymphadenopathy. CARDIOVASCULAR: Regular rate and rhythm without murmurs, gallops, or rubs. RESPIRATORY: Breath sounds equal bilaterally. No accessory muscle use. Abdomen: Abdomen soft, non-tender, nondistended. Positive bowel sounds. No hepato-splenomegaly, or palpable masses. No guarding. MUSCULOSKELETAL: No cyanosis, or edema. BACK: Nontender without obvious deformity. No CVA tenderness. Data Data Last Documented VS Vital Signs Date Time Temp Pulse Resp B/P Pulse Ox O2 Delivery O2 Flow Rate FiO2 03/10/17 01:15 16 97 Room Air 03/09/17 22:08 98.8 88 122/82 Orders Complete Blood Count With Diff (03/09/17 23:43) Comprehensive Metabolic Panel (03/09/17 23:43) Lipase (03/09/17 23:43) Prothrombin Time / Inr (Pt) (03/09/17 23:43) Act Partial Throm Time (Ptt) (03/09/17 23:43) Urinalysis - C+S If Indicated (03/09/17 23:43) Iv Access Insert/Monitor (03/09/17 23:43) Ecg Monitoring (03/09/17 23:43) Oximetry (03/09/17 23:43) Ondansetron Inj (Zofran Inj) (03/09/17 23:45) Sodium Chlor 0.9% 1000 Ml Inj (Ns 1000 M (03/09/17 23:43) Sodium Chloride 0.9% Flush (Ns Flush) (03/09/17 23:45) Ed Urine Pregnancytest Poc (03/09/17 23:43) Labs Laboratory Tests Test 03/10/17 03/10/17 00:20 00:30 Urine Color LIGHT-YELLOW Urine Turbidity CLEAR Urine pH 6.0 Urine Specific [place] 1.039 Urine Protein 30 mg/dL Urine Glucose (UA) 1000 mg/dL Urine Ketones NEG mg/dL Urine Occult Blood NEG Urine Nitrite NEG Urine Bilirubin NEG Urine Urobilinogen LESS THAN 2.0 MG/DL Urine Leukocyte Esterase NEG Urine RBC 1 /hpf Urine WBC 2 /hpf Urine Squamous Epithelial 3 /hpf Cells Urine Bacteria RARE /hpf Microscopic Urinalysis Comment CULT NOT INDICATED White Blood Count 13.3 TH/MM3 Red Blood Count 4.82 MIL/MM3 Hemoglobin 14.9 GM/DL Hematocrit 42.6 % Mean Corpuscular Volume 88.5 FL Mean Corpuscular Hemoglobin 31.0 PG Mean Corpuscular Hemoglobin 35.1 % Concent Red Cell Distribution Width 12.7 % Platelet Count 336 TH/MM3 Mean Platelet Volume 8.6 FL Neutrophils (%) (Auto) 42.0 % Lymphocytes (%) (Auto) 48.9 % Monocytes (%) (Auto) 5.9 % Eosinophils (%) (Auto) 1.9 % Basophils (%) (Auto) 1.3 % Neutrophils # (Auto) 5.6 TH/MM3 Lymphocytes # (Auto) 6.5 TH/MM3 Monocytes # (Auto) 0.8 TH/MM3 Eosinophils # (Auto) 0.3 TH/MM3 Basophils # (Auto) 0.2 TH/MM3 CBC Comment AUTO DIFF Differential Total Cells 100 Counted Neutrophils % (Manual) 31 % Lymphocytes % 63 % Monocytes % 5 % Eosinophils % 1 % Neutrophils # (Manual) 4.1 TH/MM3 Differential Comment FINAL DIFF MANUAL Platelet Estimate NORMAL Platelet Morphology Comment NORMAL Prothrombin Time 10.7 SEC Prothromb Time International 1.0 RATIO Ratio Activated Partial 24.5 SEC Thromboplast Time Sodium Level 138 MEQ/L Potassium Level 3.5 MEQ/L Chloride Level 100 MEQ/L Carbon Dioxide Level 29.6 MEQ/L Anion Gap 8 MEQ/L Blood Urea Nitrogen 14 MG/DL Creatinine 0.73 MG/DL Estimat Glomerular Filtration 99 ML/MIN Rate Random Glucose 148 MG/DL Calcium Level 9.9 MG/DL Total Bilirubin 0.4 MG/DL Aspartate Amino Transf 22 U/L (AST/SGOT) Alanine Aminotransferase 37 U/L (ALT/SGPT) Alkaline Phosphatase 96 U/L Total Protein 9.1 GM/DL Albumin 4.7 GM/DL Lipase 141 U/L MDM Medical Decision Making Medical Screen Exam Complete: Yes Emergency Medical Condition: Yes Medical Record Reviewed: Yes Differential Diagnosis Gastritis versus hyperglycemia versus DKA versus gastroenteritis versus colitis versus versus UTI Narrative Course 21-year-old female presents to emergency department for evaluation. Patient appears without distress. Exam is benign. CBC is with mild leukocytosis of 13.3. CMP is without acute concern. Lipase is 141. Urinalysis is with 30 proteinuria, 1000 glucosuria, rare bacteria. Culture is not indicated. Patient received IV fluids and Zofran. She has not vomited since being here. She will be discharged home to follow up with a primary care provider. She agrees to return immediately with any acute worsening of symptoms. Diagnosis Primary Impression: Gastroenteritis Referrals: Primary Care Physician Patient Instructions: Gastroenteritis (ED), General Instructions Additional Instructions: Maintain adequate oral hydration Clear liquid diet; advance as tolerated Follow-up with a primary care provider Return immediately with any acute worsening of symptoms Med/Other Pt SpecificInfo: No Change to Meds Disposition: 01 DISCHARGE HOME Condition: Stable Anna Marie Jimenez Mar 09, 2017 23:43
[2017-03-09] MEDS ORDERED: FLUTI44I INH (23:44)
[2017-03-09] MEDS ORDERED: NOVORP2 SQ (23:44)
[2017-03-09] MEDS ORDERED: LANTUS2P SQ (23:44)
[2017-03-09] MEDS ORDERED: ONDANSETRON HCL 4 MG/2 ML VIAL IVP ONE (23:45)
[2017-03-09] MEDS ORDERED: SODIUM CHLORIDE 0.9% FLUSH 10 ML FLUSH IV FLUSH PRN (23:45)
[2017-03-10 00:56] LABS: AUTOMATED NEUTROPHIL # 5.6 TH/MM3 (1.8-7.7); BASOPHIL # 0.2 TH/MM3 (0-0.2); BASOPHIL % 1.3 % (0.0-2.0); EOSINOPHIL # 0.3 TH/MM3 (0-0.4); EOSINOPHIL % 1.9 % (0.0-4.0); HEMATOCRIT 42.6 % (35.0-46.0); LYMPH % 48.9 % (9.0-44.0); LYMPHOCYTE # 6.5 TH/MM3 (1.0-4.8); MEAN CELL VOLUME 88.5 FL (80.0-100.0); MEAN CORPUSCULAR HGB CONC 35.1 % (32.0-36.0); MONO % 5.9 % (0.0-8.0); PLATELET COUNT 336 TH/MM3 (150-450); RED BLOOD COUNT 4.82 MIL/MM3 (4.00-5.30); RED CELL DISTRIBUTION WIDTH 12.7 % (11.6-17.2); WHITE BLOOD COUNT 13.3 TH/MM3 (4.0-11.0)
[2017-03-10 01:00] LABS: HEMO FLAGS AUTO DIFF
[2017-03-10 01:04] LABS: APTT (PATIENT) 24.5 SEC (24.3-30.1); PROTHROMBIN TIME - PATIENT 10.7 SEC (9.8-11.6)
[2017-03-10 01:15] VITALS: RESP 16; O2SAT 97
[2017-03-10 01:40] LABS: ALT (GPT) 37 U/L (10-53); ANION GAP 8 MEQ/L (5-15); AST (GOT) 22 U/L (15-37); BICARBONATE 29.6 MEQ/L (21.0-32.0); BLOOD UREA NITROGEN 14 MG/DL (7-18); CHLORIDE 100 MEQ/L (98-107); EOSINOPHILS 1 % (0-4); GLOMERULAR FILTRATION RATE 99 ML/MIN (>89); NEUTROPHIL # MANUAL DIFF 4.1 TH/MM3 (1.8-7.7); POLYS (SEG NEUTROPHILS) 31 % (16-70); POTASSIUM 3.5 MEQ/L (3.5-5.1); SCAN/DIFF FINAL DIFF MANUAL; SODIUM (NA) 138 MEQ/L (136-145); WBC DIFF SAMPLE 100
[2017-03-10 01:41] LABS: PLATELET ESTIMATE SMEAR NORMAL (NORMAL); PLATELET MORPHOLOGY NORMAL (NORMAL)
[2017-03-10 01:43] LABS: ALKALINE PHOSPHATASE 96 U/L (45-117); TOTAL BILIRUBIN ADULT 0.4 MG/DL (0.2-1.0)
[2017-03-10 01:58] LABS: BACTERIA, URINE RARE /hpf; BLOOD, URINE NEG (NEG); COMMENT (UR) CULT NOT INDICATED; CULTURE IF INDICATED CULT NOT INDICATED; GLUCOSE,URINE 1000 mg/dL (NEG); KETONE, URINE NEG (NEG); NITRITE,URINE NEG (NEG); SQUAMOUS EPITHELIAL CELL URINE 3 /hpf (0-5); URINE COLOR LIGHT-YELLOW (YELLW/STRAW)
== END 2017-03-10 02:56 | disposition home or self-care (01) ==
LOC: NEPD 22:02
DX: K52.9 Noninfective gastroenteritis and colitis, unspecified (principal); D72.829 Elevated white blood cell count, unspecified; M25.552 Pain in left hip; E10.9 Type 1 diabetes mellitus without complications; Z79.4 Long term (current) use of insulin; Z87.09 Personal history of other diseases of the respiratory system
CPT/HCPCS: 80053; 81001; 83690; 84703; 85007; 85027; 85610; 85730; 96374; 99284; J2405; J7030

== ENCOUNTER 2017-04-20 15:59 | Emergency (ER) | payer MEDICAID ==
[~2017-04-20] VITALS: Ht 157.5 cm; Wt 52.0 kg
[~2017-04-20 15:59] MED LIST changes: -CIPR500T2 PO; +FLUTI44I INH; -GLUC40GE PO; +LANTUS2P SQ; -LEVEMIR SQ
[2017-04-20 16:04] VITALS: BP 117/87; PULSE 75; RESP 16; TEMP 98.8; O2SAT 99
--- NOTE | 2017-04-20 16:21 | PD ---
HPI Chief Complaint: Complaint Time Seen by Provider: 16:13 Travel History International Travel<30 days: No Contact w/Intl Traveler<30days: No Traveled to known affect area: No History of Present Illness HPI Patient comes in complaining of dysuria ongoing for a week along with possible . Patient denies any abdominal pain, back pain, fevers, nausea, vomiting, vaginal discharge, chest pain, shortness of breath, or headaches. Patient states symptoms are similar to previous UTIs. Denies anything making it better or worse. Denies any pain other than when she urinates. Symptoms are mild. PFSH Past Medical History Arthritis: No Asthma: No Blood Disorders: No Anxiety: No Depression: No Heart Rhythm Problems: No Cancer: No Cardiovascular Problems: No High Cholesterol: No Chemotherapy: No Chest Pain: No Congestive Heart Failure: No COPD: No Cerebrovascular Accident: No Developmental Delay: No Diabetes: Yes Diminished Hearing: No Endocrine: No Genitourinary: No Immune Disorder: No Insomnia: Yes Musculoskeletal: No Neurologic: No Reproductive: No Respiratory: Yes (asthma) Immunizations Current: Yes Radiation Therapy: No Sleep Apnea: No PNEUMOCCOCAL Vaccine (Year): 1 ?: Unknown LMP: 03/17/17 Menopausal: No : 1 Para: 1 Miscarriage: 3 Ovarian Cysts: Yes Past Surgical History Abdominal Surgery: No AICD: No Arteriovenous Shunt: No Cardiac Surgery: No Section: Yes (11/17/2016) Ear Surgery: No Endocrine Surgery: No Eye Surgery: No Genitourinary Surgery: No Gynecologic Surgery: No Neurologic Surgery: Yes (PLASTIC SKULL SURGERY) Oral Surgery: No Thoracic Surgery: No Other Surgery: Yes (plastic skull surgery) Social History Alcohol Use: No Tobacco Use: No Substance Use: No Allergies-Medications (Allergen,Severity, Reaction): Coded Allergies: nitrofurantoin (Verified Allergy, Severe, Rash, 04/20/17) coconut (Verified Allergy, Intermediate, Rash, 04/20/17) *MDRO Multi-Drug Resistant Organism (Verified Adverse Reaction, Unknown, ) MRSA PCR Screen POSITIVE - 02/24/2015 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 ESBL+E.Coli (urine) - 07/2015 Reported Meds & Prescriptions Reported Meds & Active Scripts Active Keflex (Cephalexin) 500 Mg Cap 500 Mg PO Q8H Reported Flovent Hfa 10.6 GM Inh (Fluticasone Propionate) 44 Mcg/Act Inh 2 Puff INH DAILY Use daily at the same time. Novolin R Inj (Insulin Human Regular) 1,000 Unit/10 Ml Vial 15 Units SQ BID Lantus Inj (Insulin Glargine) 1,000 Unit/10 Ml Vial 15 Units SQ HS Review of Systems Except as stated in HPI: all other systems reviewed are Neg Physical Exam Narrative GENERAL: Well-developed, well nourished, in no acute distress, and non-ill appearing. SKIN: Focused skin assessment warm and dry. HEAD: Atraumatic. Normocephalic. EYES: Pupils equal and round. EOMI. No scleral icterus. No injection or drainage. ENT: No nasal bleeding or discharge. Mucous membranes pink and moist. NECK: Trachea midline. Supple. No nuclear rigidity. CARDIOVASCULAR: Regular rate and rhythm. No murmur appreciated. RESPIRATORY: No accessory muscle use. No respiratory distress. Clear to auscultation. Breath sounds equal bilaterally. GASTROINTESTINAL: Abdomen soft, non-tender, nondistended, and no guarding. Hepatic and splenic margins not palpable. Normal bowel sounds 4. No pulsatile mass. No CVA tenderness. MUSCULOSKELETAL: No obvious deformities. No clubbing. No cyanosis. No edema. Full range of motion. NEUROLOGICAL: Awake and alert. No obvious cranial nerve deficits. Motor grossly within normal limits. Normal speech. PSYCHIATRIC: Appropriate mood and affect; insight and judgment normal. Data Data Last Documented VS Vital Signs Date Time Temp Pulse Resp B/P (MAP) Pulse Ox O2 Delivery O2 Flow Rate FiO2 04/20/17 17:35 97.8 78 16 110/83 (92) 99 Orders Orders Urinalysis - C+S If Indicated (04/20/17 16:17) Ed Urine Pregnancytest Poc (04/20/17 16:17) Urine Culture (04/20/17 16:20) Labs Laboratory Tests Test 04/20/17 16:20 Urine Color LIGHT-YELLOW Urine Turbidity CLEAR Urine pH 6.5 Urine Specific [place] 1.006 Urine Protein NEG mg/dL Urine Glucose (UA) NEG mg/dL Urine Ketones NEG mg/dL Urine Occult Blood NEG Urine Nitrite NEG Urine Bilirubin NEG Urine Urobilinogen LESS THAN 2.0 MG/DL Urine Leukocyte Esterase LARGE Urine WBC 22 /hpf Urine Mucus FEW /lpf Microscopic Urinalysis Comment CULTURE INDICATED MDM Medical Decision Making Medical Screen Exam Complete: Yes Emergency Medical Condition: Yes Differential Diagnosis UTI, , dysuria, cystitis, other Narrative Course The patient presentation with history and evaluation are consistent with UTI. There is no evidence of pyelonephritis. The patient is tolerating fluids, no fever and no back pain. There is no clinical evidence to suggest atypical cervicitis, PID, appendicitis. The patient was discharged on antibiotics and given warnings to return if condition worsens in any way, fever, vomiting and unable to tolerate medications or fluids, back pain or as needed. The patient was instructed to follow up with their physician. The patient agrees with plan of care. Patient in no obvious distress upon re-evaluation. All pertinent laboratory result(s) discussed with patient/family. Patient was asked if they wanted to speak to my attending, which the patient did not wish to do at this time. Any questions/concerns in reference to patient diagnosis/condition discussed and clarified prior to patient's discharge. Reinforced sheer importance of close follow up with patient's primary physician or primary care clinic. Instructed patient to return to ED immediately, if symptoms return/worsen. Pt showed understanding of above instructions. Further instructions and recommendations were detailed in discharge paperwork. Pt ambulated without difficulty out of ED at discharge. Diagnosis Primary Impression: UTI (urinary tract infection) Qualified Codes: N39.0 - Urinary tract infection, site not specified Patient Instructions: General Instructions, Urinary Tract Infection in Women ( ED) Additional Instructions: Follow-up with your primary care physician next week for reevaluation. Take all medication as prescribed. Return to the emergency department if symptoms get worse. Med/Other Pt SpecificInfo: Prescription(s) given Scripts Cephalexin (Keflex) 500 Mg Cap 500 MG PO Q8H for Infection, #30 CAP 0 Refills Prov: Jamal Rodriguez MD 04/20/17 Disposition: 01 DISCHARGE HOME Condition: Stable Julian Nance Apr 20, 2017 16:21
[2017-04-20 16:52] LABS: BLOOD, URINE NEG (NEG); GLUCOSE,URINE NEG (NEG); KETONE, URINE NEG (NEG); MUCUS URINE FEW /lpf (OCC); NITRITE,URINE NEG (NEG); PH, URINE 6.5 (5.0-8.5); URINE COLOR LIGHT-YELLOW (YELLW/STRAW)
[2017-04-20 17:05] LABS: COMMENT (UR) CULTURE INDICATED; CULTURE IF INDICATED CULTURE INDICATED
[2017-04-20] MEDS ORDERED: CEPH-460 PO (17:19)
[2017-04-20 17:35] VITALS: BP 110/83; TEMP 97.8
== END 2017-04-20 17:39 | disposition home or self-care (01) ==
LOC: NEPD 15:59
DX: N39.0 Urinary tract infection, site not specified (principal); E11.9 Type 2 diabetes mellitus without complications; Z79.4 Long term (current) use of insulin
CPT/HCPCS: 81001; 84703; 87086; 99283

== ENCOUNTER 2017-07-07 12:25 | Emergency (ER) | payer MEDICAID ==
[~2017-07-07] VITALS: Ht 157.5 cm; Wt 55.0 kg
[~2017-07-07 12:25] MED LIST changes: +CEPH-460 PO
[2017-07-07 12:28] VITALS: BP 112/70; PULSE 96; RESP 14; TEMP 98.6; O2SAT 97
--- NOTE | 2017-07-07 12:49 | PD ---
HPI Chief Complaint: Diabetic Time Seen by Provider: 12:45 Travel History International Travel<30 days: No Contact w/Intl Traveler<30days: No Traveled to known affect area: No PFSH Past Medical History Arthritis: No Asthma: No Blood Disorders: No Anxiety: No Depression: No Heart Rhythm Problems: No Cancer: No Cardiovascular Problems: No High Cholesterol: No Chemotherapy: No Chest Pain: No Congestive Heart Failure: No COPD: No Cerebrovascular Accident: No Developmental Delay: No Diabetes: Yes Diminished Hearing: No Endocrine: No Genitourinary: No Immune Disorder: No Insomnia: Yes Musculoskeletal: No Neurologic: No Reproductive: No Respiratory: Yes (asthma) Immunizations Current: Yes Radiation Therapy: No Sleep Apnea: No PNEUMOCCOCAL Vaccine (Year): 1 ?: Not LMP: 06/17/17 Menopausal: No : 1 Para: 1 Miscarriage: 3 Ovarian Cysts: Yes Past Surgical History Abdominal Surgery: No AICD: No Arteriovenous Shunt: No Cardiac Surgery: No Section: Yes (11/17/2016) Ear Surgery: No Endocrine Surgery: No Eye Surgery: No Genitourinary Surgery: No Gynecologic Surgery: No Neurologic Surgery: Yes (PLASTIC SKULL SURGERY) Oral Surgery: No Thoracic Surgery: No Other Surgery: Yes (csection) Social History Alcohol Use: No (pt denies) Tobacco Use: No (pt denies ) Substance Use: No (PT DENIES ) Allergies-Medications (Allergen,Severity, Reaction): Coded Allergies: nitrofurantoin (Verified Allergy, Severe, Rash, 07/07/17) coconut (Verified Allergy, Intermediate, Rash, 07/07/17) *MDRO Multi-Drug Resistant Organism (Verified Adverse Reaction, Unknown, 07/07/17) MRSA PCR Screen POSITIVE - 02/24/2015 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 ESBL+E.Coli (urine) - 07/2015 Reported Meds & Prescriptions Reported Meds & Active Scripts Active Reported Flovent Hfa 10.6 GM Inh (Fluticasone Propionate) 44 Mcg/Act Inh 2 Puff INH DAILY Use daily at the same time. Novolin R Inj (Insulin Human Regular) 1,000 Unit/10 Ml Vial 15 Units SQ BID Lantus Inj (Insulin Glargine) 1,000 Unit/10 Ml Vial 15 Units SQ HS Data Data Last Documented VS Vital Signs Date Time Temp Pulse Resp B/P (MAP) Pulse Ox O2 Delivery O2 Flow Rate FiO2 07/07/17 12:28 98.6 96 14 112/70 (84) 97 Orders Orders Ed Urine Pregnancytest Poc (07/07/17 13:21) Dick Hylton Jul 07, 2017 12:49
[2017-07-07] MEDS ORDERED: SODIUM CHLOR 0.9% 1000 ML INJ 1,000 ML IV ONE ×2 (13:45→15:15)
[2017-07-07 14:27] LABS: BASOPHIL # 0.1 TH/MM3 (0-0.2); BASOPHIL % 0.8 % (0.0-2.0); EOSINOPHIL # 0.1 TH/MM3 (0-0.4); HEMATOCRIT 48.8 % (35.0-46.0); HEMO FLAGS DIFF FINAL; LYMPH % 42.5 % (9.0-44.0); LYMPHOCYTE # 4.1 TH/MM3 (1.0-4.8); MEAN CELL VOLUME 86.3 FL (80.0-100.0); MEAN CORPUSCULAR HEMOGLOBIN 29.7 PG (27.0-34.0); MEAN CORPUSCULAR HGB CONC 34.4 % (32.0-36.0); MONO % 4.9 % (0.0-8.0); NEUT % 50.8 % (16.0-70.0); PLATELET COUNT 322 TH/MM3 (150-450); RED BLOOD COUNT 5.65 MIL/MM3 (4.00-5.30); RED CELL DISTRIBUTION WIDTH 12.8 % (11.6-17.2); WHITE BLOOD COUNT 9.8 TH/MM3 (4.0-11.0)
[2017-07-07 14:41] LABS: ALT (GPT) 38 U/L (10-53)
[2017-07-07 14:45] LABS: BACTERIA, URINE RARE /hpf; BLOOD, URINE NEG (NEG); COMMENT (UR) CULT NOT INDICATED; CULTURE IF INDICATED CULT NOT INDICATED; GLUCOSE,URINE 300 mg/dL (NEG); KETONE, URINE NEG (NEG); MUCUS URINE FEW /lpf (OCC); NITRITE,URINE NEG (NEG); SQUAMOUS EPITHELIAL CELL URINE <1 /hpf (0-5); TRANSITIONAL EPI CELLS, URINE <1 /hpf; URINE COLOR YELLOW (YELLW/STRAW)
[2017-07-07 14:53] LABS: ALKALINE PHOSPHATASE 81 U/L (45-117); ANION GAP 7 MEQ/L (5-15); AST (GOT) 54 U/L (15-37); BLOOD UREA NITROGEN 13 MG/DL (7-18); CHLORIDE 101 MEQ/L (98-107); CREATINE KINASE 133 U/L (26-192); GLOMERULAR FILTRATION RATE 93 ML/MIN (>89); POTASSIUM 4.5 MEQ/L (3.5-5.1); SODIUM (NA) 133 MEQ/L (136-145); TOTAL BILIRUBIN ADULT 0.7 MG/DL (0.2-1.0)
[2017-07-07 15:00] VITALS: BP 118/72; PULSE 73; RESP 16; O2SAT 100
--- NOTE | 2017-07-07 15:02 | PD ---
HPI Chief Complaint: Diabetic Time Seen by Provider: 12:45 Travel History International Travel<30 days: No Contact w/Intl Traveler<30days: No Traveled to known affect area: No History of Present Illness HPI 22-year-old female history of type 1 diabetes mellitus, presents here with complaints of nausea vomiting, diarrhea and abdominal pain 6 days. Patient denies any fevers, chills. She denies any cough or shortness breath. The patient reports extreme dizziness and weakness. There is no dysuria or frequency. She states her sugars a bit in the 600s over last several days. PFSH Past Medical History Arthritis: No Asthma: Yes Blood Disorders: No Weight (Kg): 3 Anxiety: No Depression: No Heart Rhythm Problems: No Cancer: No Cardiovascular Problems: No High Cholesterol: No Chemotherapy: No Chest Pain: No Congestive Heart Failure: No COPD: No Cerebrovascular Accident: No Developmental Delay: No Diabetes: Yes Patient Takes Glucophage: No Diminished Hearing: No Endocrine: No Genitourinary: No Immune Disorder: No Insomnia: Yes Musculoskeletal: No Neurologic: No Reproductive: No Respiratory: Yes (asthma) Immunizations Current: Yes Radiation Therapy: No Sleep Apnea: No Tetanus Vaccination: < 5 Years Influenza Vaccination: Yes PNEUMOCCOCAL Vaccine (Year): 1 ?: Not LMP: 06/17/17 Menopausal: No : 4 Para: 1 Miscarriage: 3 Ovarian Cysts: Yes Past Surgical History Abdominal Surgery: No AICD: No Arteriovenous Shunt: No Cardiac Surgery: No Section: Yes (11/17/2016) Ear Surgery: No Endocrine Surgery: No Eye Surgery: No Genitourinary Surgery: No Gynecologic Surgery: No 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) Oral Surgery: No Thoracic Surgery: No Other Surgery: Yes (csection) Social History Alcohol Use: No (pt denies) Tobacco Use: No (pt denies ) Substance Use: No (PT DENIES ) Allergies-Medications (Allergen,Severity, Reaction): Coded Allergies: nitrofurantoin (Verified Allergy, Severe, Rash, 07/07/17) coconut (Verified Allergy, Intermediate, Rash, 07/07/17) *MDRO Multi-Drug Resistant Organism (Verified Adverse Reaction, Unknown, 07/07/17) MRSA PCR Screen POSITIVE - 02/24/2015 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 ESBL+E.Coli (urine) - 07/2015 Reported Meds & Prescriptions Reported Meds & Active Scripts Active Zofran (Ondansetron HCl) 4 Mg Tab 4 Mg PO Q8HR PRN Reported Flovent Hfa 10.6 GM Inh (Fluticasone Propionate) 44 Mcg/Act Inh 2 Puff INH DAILY Use daily at the same time. Novolin R Inj (Insulin Human Regular) 1,000 Unit/10 Ml Vial 15 Units SQ BID Lantus Inj (Insulin Glargine) 1,000 Unit/10 Ml Vial 15 Units SQ HS Review of Systems Except as stated in HPI: all other systems reviewed are Neg General / Constitutional: No: Fever, Chills Eyes: No: Diploplia, Blurred Vision HENT: No: Headaches, Lightheadedness Cardiovascular: No: Chest Pain or Discomfort, Palpitations Respiratory: No: Cough, Shortness of Breath Gastrointestinal: Positive: Nausea, Vomiting, Diarrhea, Abdominal Pain Genitourinary: No: Frequency, Dysuria, Decreased Urinary Output Musculoskeletal: Positive: Weakness (generalized), No: Pain Neurologic: Positive: Weakness (generalized), No: Dizziness, Syncope, Headache Physical Exam Narrative GENERAL: Thin ill appearing female in no acute respiratory distress. SKIN: Focused skin assessment warm/dry. No tenting. HEAD: Atraumatic. Normocephalic. EYES: Pupils equal and round. No scleral icterus. No injection or drainage. ENT: No nasal bleeding or discharge. Mucous membranes pale and dry NECK: Trachea midline. Supple. CARDIOVASCULAR: Rate in the low 90s, sinus rhythm. No murmur appreciated. RESPIRATORY: No accessory muscle use. Clear to auscultation. Breath sounds equal bilaterally. GASTROINTESTINAL: Abdomen soft, non-tender, nondistended. Hepatic and splenic margins not palpable. MUSCULOSKELETAL: No obvious deformities. No clubbing. No cyanosis. No edema. NEUROLOGICAL: Awake and alert. No obvious cranial nerve deficits. Motor grossly within normal limits. Normal speech. Data Data Last Documented VS Vital Signs Date Time Temp Pulse Resp B/P (MAP) Pulse Ox O2 Delivery O2 Flow Rate FiO2 07/07/17 15:00 73 16 118/72 (87) 100 Room Air 07/07/17 12:28 98.6 Orders Orders Ed Urine Pregnancytest Poc (07/07/17 13:21) Electrocardiogram (07/07/17 13:45) Complete Blood Count With Diff (07/07/17 13:45) Comprehensive Metabolic Panel (07/07/17 13:45) Ckmb (Isoenzyme) Profile (07/07/17 13:45) Troponin I (07/07/17 13:45) Urinalysis - C+S If Indicated (07/07/17 13:45) Magnesium (Mg) (07/07/17 13:45) Phosphorus (Po4) (07/07/17 13:45) Chest, Single Ap (07/07/17 13:45) Iv Access Insert/Monitor (07/07/17 13:45) Ecg Monitoring (07/07/17 13:45) Oximetry (07/07/17 13:45) Sodium Chlor 0.9% 1000 Ml Inj (Ns 1000 M (07/07/17 13:45) CKMB (07/07/17 14:00) CKMB% (07/07/17 14:00) Sodium Chlor 0.9% 1000 Ml Inj (Ns 1000 M (07/07/17 15:15) Labs Laboratory Tests Test 07/07/17 14:00 White Blood Count 9.8 TH/MM3 Red Blood Count 5.65 MIL/MM3 Hemoglobin 16.8 GM/DL Hematocrit 48.8 % Mean Corpuscular Volume 86.3 FL Mean Corpuscular Hemoglobin 29.7 PG Mean Corpuscular Hemoglobin Concent 34.4 % Red Cell Distribution Width 12.8 % Platelet Count 322 TH/MM3 Mean Platelet Volume 8.7 FL Neutrophils (%) (Auto) 50.8 % Lymphocytes (%) (Auto) 42.5 % Monocytes (%) (Auto) 4.9 % Eosinophils (%) (Auto) 1.0 % Basophils (%) (Auto) 0.8 % Neutrophils # (Auto) 5.0 TH/MM3 Lymphocytes # (Auto) 4.1 TH/MM3 Monocytes # (Auto) 0.5 TH/MM3 Eosinophils # (Auto) 0.1 TH/MM3 Basophils # (Auto) 0.1 TH/MM3 CBC Comment DIFF FINAL Differential Comment Urine Color YELLOW Urine Turbidity CLEAR Urine pH 7.0 Urine Specific [place] 1.026 Urine Protein 30 mg/dL Urine Glucose (UA) 300 mg/dL Urine Ketones NEG mg/dL Urine Occult Blood NEG Urine Nitrite NEG Urine Bilirubin NEG Urine Urobilinogen LESS THAN 2.0 MG/DL Urine Leukocyte Esterase NEG Urine RBC 1 /hpf Urine WBC 4 /hpf Urine Squamous Epithelial Cells <1 /hpf Urine Transitional Epithelial Cells <1 /hpf Urine Bacteria RARE /hpf Urine Mucus FEW /lpf Microscopic Urinalysis Comment CULT NOT INDICATED Blood Urea Nitrogen 13 MG/DL Creatinine 0.76 MG/DL Random Glucose 77 MG/DL Total Protein 9.9 GM/DL Albumin 4.6 GM/DL Calcium Level 9.6 MG/DL Phosphorus Level 3.1 MG/DL Magnesium Level 2.0 MG/DL Alkaline Phosphatase 81 U/L Aspartate Amino Transf (AST/SGOT) 54 U/L Alanine Aminotransferase (ALT/SGPT) 38 U/L Total Bilirubin 0.7 MG/DL Sodium Level 133 MEQ/L Potassium Level 4.5 MEQ/L Chloride Level 101 MEQ/L Carbon Dioxide Level 25.0 MEQ/L Anion Gap 7 MEQ/L Estimat Glomerular Filtration Rate 93 ML/MIN Total Creatine Kinase 133 U/L Creatine Kinase MB LESS THAN 0.5 NG/ML Troponin I LESS THAN 0.02 NG/ML MDM Medical Decision Making Medical Screen Exam Complete: Yes Emergency Medical Condition: Yes Differential Diagnosis DKA versus metabolic arrangement versus dehydration versus anemia Narrative Course 42-year-old female history type 1 diabetes, presents today with complaint of 6 days of nausea vomiting and abdominal cramps. The patient has had previous DKA in the past. She states her sugar was 600 earlier over the last couple days. Blood sugar here 77. She's been given a meal which she is tolerated well. She' s been given 2 L of IV fluid. She was somewhat hemoconcentrated however the rest of her labs appeared within normal limits. There is no evidence of pneumonia or UTI. She'll be discharged with prescription for Zofran. She is instructed to return if she develops any fevers, chills or feeling worse. Diagnosis Primary Impression: DM (diabetes mellitus) Additional Impression: Nausea & vomiting Additional Instructions: Zofran as needed for nausea vomiting. Drink plenty of fluids. Return if feeling worse. Med/Other Pt SpecificInfo: Prescription(s) given Scripts Ondansetron (Zofran) 4 Mg Tab 4 MG PO Q8HR Y for NAUSEA OR VOMITING, #20 TAB 0 Refills Prov: Dionte May MD 07/07/17 Disposition: DISCHARGE HOME Condition: Stable Dionte May MD Jul 07, 2017 15:02
[2017-07-07 15:05] LABS: CKMB LESS THAN 0.5 NG/ML (0.5-3.6)
--- NOTE | 2017-07-07 15:07 | RADRPT ---
EXAM DATE/TIME: 07/07/2017 14:47 [facility] COMPARISON: CHEST SINGLE AP, May 31, 2016, 17:03. INDICATIONS : Shortness of breath, nausea, vomiting. MEDICAL HISTORY : None. SURGICAL HISTORY : None. ENCOUNTER: Initial ACUITY: 2 days PAIN SCORE: 3/10 LOCATION: Bilateral chest FINDINGS: A single view of the chest demonstrates the lungs to be symmetrically aerated without evidence of mas s, infiltrate or effusion. No evidence of pneumothorax. The cardiomediastinal contours are unremark able. Osseous structures are intact. CONCLUSION: The lungs are clear. Daniel Edmond MD on July 07, 2017 at 15:05 Board Certified Radiologist. This report was verified electronically.
[2017-07-07] MEDS ORDERED: ZOFR4TAB PO (17:54)
[2017-07-07 18:18] VITALS: BP 117/76
--- NOTE | 2017-07-07 23:40 | EKG ---
Date Performed: 07/07/2017 Time Performed: 14:05:20 PTAGE: 22 years EKG: Sinus rhythm NORMAL ECG PREVIOUS TRACING : 09/13/2016 09.34 Compared to prior tracing no significant change DOCTOR: Guy Randall Interpretating Date/Time 07/07/2017 23:39:14
== END 2017-07-07 18:51 | disposition home or self-care (01) ==
LOC: NEPC 12:25
DX: R11.2 Nausea with vomiting, unspecified (principal); R10.9 Unspecified abdominal pain; E10.9 Type 1 diabetes mellitus without complications; R19.7 Diarrhea, unspecified; R53.1 Weakness; R42 Dizziness and giddiness; J45.909 Unspecified asthma, uncomplicated; Z79.4 Long term (current) use of insulin
CPT/HCPCS: 71010; 80053; 81001; 82550; 82552; 83735; 84100; 84484; 84703; 85025; 93005; 96360; 96361; 99285; J7030

== ENCOUNTER 2017-08-31 18:25 | Emergency (ER) | payer MEDICAID ==
[~2017-08-31] VITALS: Ht 157.5 cm; Wt 52.7 kg
[~2017-08-31 18:25] MED LIST changes: -CEPH-460 PO; +ZOFR4TAB PO
[2017-08-31 18:27] VITALS: BP 144/99; PULSE 102; RESP 16; TEMP 98.2; O2SAT 99
--- NOTE | 2017-08-31 19:24 | PD ---
HPI Chief Complaint: GI Complaint Time Seen by Provider: 19:13 Travel History International Travel<30 days: No Contact w/Intl Traveler<30days: No Traveled to known affect area: No History of Present Illness HPI 22-year-old white female presents to emergency department for evaluation of nausea vomiting. Patient has a history of insulin-dependent diabetes and asthma. She is followed by the [facility]. She states that she's been sick now for 2 weeks. Initially had been mostly in the morning that she was sick and vomiting. She states that the symptoms have intensified today and now cannot keep anything down. She states her blood sugars this morning were 120. She denies any fever chills. No earache or sore throat. No chest pain or shortness of breath. No abdominal pain or pelvic pain. No dysuria or frequency. No vaginal complaints. Symptoms are moderate. No exacerbating or alleviating factors. PFSH Past Medical History Arthritis: No Asthma: Yes Blood Disorders: No Anxiety: No Depression: No Heart Rhythm Problems: No Cancer: No Cardiovascular Problems: No High Cholesterol: No Chemotherapy: No Chest Pain: No Congestive Heart Failure: No COPD: No Cerebrovascular Accident: No Developmental Delay: No Diabetes: Yes Diminished Hearing: No Endocrine: No Genitourinary: No Immune Disorder: No Insomnia: Yes Musculoskeletal: No Neurologic: No Reproductive: No Respiratory: Yes (asthma) Immunizations Current: Yes Radiation Therapy: No Sleep Apnea: No PNEUMOCCOCAL Vaccine (Year): 1 ?: Unknown LMP: 08/03/17 Menopausal: No : 4 Para: 1 Miscarriage: 3 Ovarian Cysts: Yes Past Surgical History Abdominal Surgery: No AICD: No Arteriovenous Shunt: No Cardiac Surgery: No Section: Yes (11/17/2016) Ear Surgery: No Endocrine Surgery: No Eye Surgery: No Genitourinary Surgery: No Gynecologic Surgery: No 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) Oral Surgery: No Thoracic Surgery: No Other Surgery: Yes (csection) Social History Alcohol Use: No (pt denies) Tobacco Use: No (pt denies ) Substance Use: No (PT DENIES ) Allergies-Medications (Allergen,Severity, Reaction): Coded Allergies: nitrofurantoin (Verified Allergy, Severe, Rash, 08/31/17) coconut (Verified Allergy, Intermediate, Rash, 08/31/17) *MDRO Multi-Drug Resistant Organism (Verified Adverse Reaction, Unknown, ) MRSA PCR Screen POSITIVE - 02/24/2015 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 ESBL+E.Coli (urine) - 07/2015 Reported Meds & Prescriptions Reported Meds & Active Scripts Active Zofran Odt (Ondansetron Odt) 8 Mg Tab 8 Mg SL Q8H PRN Zofran (Ondansetron HCl) 4 Mg Tab 4 Mg PO Q8HR PRN Reported Flovent Hfa 10.6 GM Inh (Fluticasone Propionate) 44 Mcg/Act Inh 2 Puff INH DAILY Use daily at the same time. Novolin R Inj (Insulin Human Regular) 1,000 Unit/10 Ml Vial 15 Units SQ BID Lantus Inj (Insulin Glargine) 1,000 Unit/10 Ml Vial 15 Units SQ HS Review of Systems Except as stated in HPI: all other systems reviewed are Neg Physical Exam Narrative GENERAL: Well-developed, well-nourished in no apparent distress. Nontoxic appearing. HEAD: Normocephalic, atraumatic. EYES: Pupils equal round and reactive. Extraocular motions intact. No scleral icterus. No injection or drainage. ENT: Nose clear. Throat without erythema, tonsillar hypertrophy or exudate. Uvula midline. Airway patent. NECK: Trachea midline. Supple, nontender, moves head freely. No central bony tenderness or spasm. CARDIOVASCULAR: Regular rate and rhythm without murmurs, gallops, or rubs. RESPIRATORY: Clear to auscultation. Breath sounds equal bilaterally. No wheezes , rales, or rhonchi. GASTROINTESTINAL: Abdomen soft, non-tender, nondistended. No hepato-splenomegaly , or palpable masses. No guarding. EXTREMITIES: No clubbing, cyanosis, or edema. No joint tenderness. BACK: Nontender without deformity. No flank tenderness. NEUROLOGICAL: Awake, alert and oriented x 3 .Cranial nerves grossly intact. Motor and sensory grossly within normal limits. Normal speech. Data Data Last Documented VS Vital Signs Date Time Temp Pulse Resp B/P (MAP) Pulse Ox O2 Delivery O2 Flow Rate FiO2 08/31/17 22:07 08/31/17 21:21 85 20 99 Room Air 08/31/17 18:27 98.2 Orders Orders Complete Blood Count With Diff (08/31/17 19:19) Comprehensive Metabolic Panel (08/31/17 19:19) Lipase (08/31/17 19:19) Urinalysis - C+S If Indicated (08/31/17 19:19) Iv Access Insert/Monitor (08/31/17 19:19) Ed Urine Pregnancytest Poc (08/31/17 19:19) Ondansetron Inj (Zofran Inj) (08/31/17 19:30) Sodium Chlor 0.9% 1000 Ml Inj (Ns 1000 M (08/31/17 21:15) Ed Discharge Order (08/31/17 22:01) Labs Laboratory Tests Test 08/31/17 19:30 White Blood Count 12.6 TH/MM3 Red Blood Count 4.47 MIL/MM3 Hemoglobin 13.2 GM/DL Hematocrit 39.9 % Mean Corpuscular Volume 89.2 FL Mean Corpuscular Hemoglobin 29.5 PG Mean Corpuscular Hemoglobin Concent 33.1 % Red Cell Distribution Width 13.7 % Platelet Count 320 TH/MM3 Mean Platelet Volume 8.6 FL Neutrophils (%) (Auto) 57.1 % Lymphocytes (%) (Auto) 36.1 % Monocytes (%) (Auto) 5.1 % Eosinophils (%) (Auto) 0.6 % Basophils (%) (Auto) 1.1 % Neutrophils # (Auto) 7.2 TH/MM3 Lymphocytes # (Auto) 4.5 TH/MM3 Monocytes # (Auto) 0.6 TH/MM3 Eosinophils # (Auto) 0.1 TH/MM3 Basophils # (Auto) 0.1 TH/MM3 CBC Comment AUTO DIFF Differential Comment AUTO DIFF CONFIRMED Platelet Estimate NORMAL Platelet Morphology Comment NORMAL Red Cell Morphology Comment NORMAL Urine Color LIGHT-YELLOW Urine Turbidity CLEAR Urine pH 5.0 Urine Specific [place] 1.033 Urine Protein NEG mg/dL Urine Glucose (UA) 1000 mg/dL Urine Ketones 10 mg/dL Urine Occult Blood LARGE Urine Nitrite NEG Urine Bilirubin NEG Urine Urobilinogen LESS THAN 2.0 MG/DL Urine Leukocyte Esterase NEG Urine RBC 5 /hpf Urine WBC LESS THAN 1 /hpf Urine Squamous Epithelial Cells 1 /hpf Microscopic Urinalysis Comment CULT NOT INDICATED Blood Urea Nitrogen 15 MG/DL Creatinine 0.93 MG/DL Random Glucose 229 MG/DL Total Protein 8.5 GM/DL Albumin 4.2 GM/DL Calcium Level 9.9 MG/DL Alkaline Phosphatase 112 U/L Aspartate Amino Transf (AST/SGOT) 44 U/L Alanine Aminotransferase (ALT/SGPT) 38 U/L Total Bilirubin 0.4 MG/DL Sodium Level 135 MEQ/L Potassium Level 4.1 MEQ/L Chloride Level 101 MEQ/L Carbon Dioxide Level 20.5 MEQ/L Anion Gap 14 MEQ/L Estimat Glomerular Filtration Rate 74 ML/MIN Lipase 174 U/L MDM Medical Decision Making Medical Screen Exam Complete: Yes Emergency Medical Condition: Yes Medical Record Reviewed: Yes Interpretation(s) Laboratory Tests Test 08/31/17 19:30 White Blood Count 12.6 TH/MM3 Red Blood Count 4.47 MIL/MM3 Hemoglobin 13.2 GM/DL Hematocrit 39.9 % Mean Corpuscular Volume 89.2 FL Mean Corpuscular Hemoglobin 29.5 PG Mean Corpuscular Hemoglobin Concent 33.1 % Red Cell Distribution Width 13.7 % Platelet Count 320 TH/MM3 Mean Platelet Volume 8.6 FL Neutrophils (%) (Auto) 57.1 % Lymphocytes (%) (Auto) 36.1 % Monocytes (%) (Auto) 5.1 % Eosinophils (%) (Auto) 0.6 % Basophils (%) (Auto) 1.1 % Neutrophils # (Auto) 7.2 TH/MM3 Lymphocytes # (Auto) 4.5 TH/MM3 Monocytes # (Auto) 0.6 TH/MM3 Eosinophils # (Auto) 0.1 TH/MM3 Basophils # (Auto) 0.1 TH/MM3 CBC Comment AUTO DIFF Differential Comment AUTO DIFF CONFIRMED Platelet Estimate NORMAL Platelet Morphology Comment NORMAL Red Cell Morphology Comment NORMAL Urine Color LIGHT-YELLOW Urine Turbidity CLEAR Urine pH 5.0 Urine Specific [place] 1.033 Urine Protein NEG mg/dL Urine Glucose (UA) 1000 mg/dL Urine Ketones 10 mg/dL Urine Occult Blood LARGE Urine Nitrite NEG Urine Bilirubin NEG Urine Urobilinogen LESS THAN 2.0 MG/DL Urine Leukocyte Esterase NEG Urine RBC 5 /hpf Urine WBC LESS THAN 1 /hpf Urine Squamous Epithelial Cells 1 /hpf Microscopic Urinalysis Comment CULT NOT INDICATED Blood Urea Nitrogen 15 MG/DL Creatinine 0.93 MG/DL Random Glucose 229 MG/DL Total Protein 8.5 GM/DL Albumin 4.2 GM/DL Calcium Level 9.9 MG/DL Alkaline Phosphatase 112 U/L Aspartate Amino Transf (AST/SGOT) 44 U/L Alanine Aminotransferase (ALT/SGPT) 38 U/L Total Bilirubin 0.4 MG/DL Sodium Level 135 MEQ/L Potassium Level 4.1 MEQ/L Chloride Level 101 MEQ/L Carbon Dioxide Level 20.5 MEQ/L Anion Gap 14 MEQ/L Estimat Glomerular Filtration Rate 74 ML/MIN Lipase 174 U/L Differential Diagnosis MDM: High Differential diagnoses: Acute appendicitis, acute pancreatitis, diverticulitis, hepatitis, colitis, gastroparesis, electrolyte abnormality Narrative Course IV access is obtained. Patient given Zofran 4 mg IV. Bedside test negative. Laboratory tests of for analysis. The patient is feeling improved. She is taking by mouth without vomiting. Laboratory tests have been reviewed with the patient. The patient has drank 2 bottles of Crystal light and ice pop. The patient is much improved. She is medically stable for discharge. This is vomiting, IDDM Diagnosis Primary Impression: Nausea & vomiting Qualified Codes: R11.2 - Nausea with vomiting, unspecified Additional Impression: DM (diabetes mellitus) Qualified Codes: E10.9 - Type 1 diabetes mellitus without complications Patient Instructions: General Instructions Additional Instructions: Rest. Force fluids. Zofran for nausea vomiting. Check her sugars frequently. Follow-up with your doctor on Sunday if symptoms persist. Return to the ER over the weekend if symptoms worsen. Med/Other Pt SpecificInfo: Prescription(s) given Scripts Ondansetron Odt (Zofran Odt) 8 Mg Tab 8 MG SL Q8H Y for NAUSEA OR VOMITING, #9 TAB 0 Refills Prov: Ernst Ybarra MD 08/31/17 Disposition: 01 DISCHARGE HOME Condition: Stable Silvio Sherman Aug 31, 2017 19:24
[2017-08-31] MEDS ORDERED: ONDANSETRON HCL 4 MG/2 ML VIAL IV PUSH ONE (19:30)
[2017-08-31 20:03] LABS: AUTOMATED NEUTROPHIL # 7.2 TH/MM3 (1.8-7.7); BASOPHIL # 0.1 TH/MM3 (0-0.2); BASOPHIL % 1.1 % (0.0-2.0); BILIRUBIN, URINE NEG (NEG); BLOOD, URINE LARGE (NEG); EOSINOPHIL # 0.1 TH/MM3 (0-0.4); EOSINOPHIL % 0.6 % (0.0-4.0); GLUCOSE,URINE 1000 mg/dL (NEG); HEMATOCRIT 39.9 % (35.0-46.0); HEMOGLOBIN 13.2 GM/DL (11.6-15.3); KETONE, URINE 10 mg/dL (NEG); LYMPH % 36.1 % (9.0-44.0); LYMPHOCYTE # 4.5 TH/MM3 (1.0-4.8); MEAN CELL VOLUME 89.2 FL (80.0-100.0); MEAN CORPUSCULAR HEMOGLOBIN 29.5 PG (27.0-34.0); MEAN CORPUSCULAR HGB CONC 33.1 % (32.0-36.0); MEAN PLATELET VOLUME 8.6 FL (7.0-11.0); MONO % 5.1 % (0.0-8.0); MONOCYTE # 0.6 TH/MM3 (0-0.9); NEUT % 57.1 % (16.0-70.0); NITRITE,URINE NEG (NEG); PLATELET COUNT 320 TH/MM3 (150-450); RED BLOOD COUNT 4.47 MIL/MM3 (4.00-5.30); RED CELL DISTRIBUTION WIDTH 13.7 % (11.6-17.2); SQUAMOUS EPITHELIAL CELL URINE 1 /hpf (0-5); URINE COLOR LIGHT-YELLOW (YELLW/STRAW); URINE LEUKOCYTE ESTERASE NEG (NEG); WHITE BLOOD COUNT 12.6 TH/MM3 (4.0-11.0)
[2017-08-31 20:15] LABS: ALT (GPT) 38 U/L (10-53)
[2017-08-31 20:18] LABS: ALKALINE PHOSPHATASE 112 U/L (45-117); TOTAL BILIRUBIN ADULT 0.4 MG/DL (0.2-1.0); TOTAL PROTEIN 8.5 GM/DL (6.4-8.2)
[2017-08-31 20:25] LABS: ALBUMIN 4.2 GM/DL (3.4-5.0); AST (GOT) 44 U/L (15-37); BICARBONATE 20.5 MEQ/L (21.0-32.0); BLOOD UREA NITROGEN 15 MG/DL (7-18); CALCIUM 9.9 MG/DL (8.5-10.1); CHLORIDE 101 MEQ/L (98-107); CREATININE 0.93 MG/DL (0.50-1.00); GLOMERULAR FILTRATION RATE 74 ML/MIN (>89); GLUCOSE,RANDOM 229 MG/DL (74-106); LIPASE 174 U/L (73-393); SODIUM (NA) 135 MEQ/L (136-145)
[2017-08-31] MEDS ORDERED: SODIUM CHLOR 0.9% 1000 ML INJ 1,000 ML IV ONE (21:15)
[2017-08-31 21:21] VITALS: BP 103/68; PULSE 85; RESP 20; O2SAT 99
[2017-08-31] MEDS ORDERED: ZOFR8TAB4 SL (22:02)
== END 2017-08-31 22:29 | disposition home or self-care (01) ==
LOC: NEPD 18:25
DX: R11.2 Nausea with vomiting, unspecified (principal); E10.9 Type 1 diabetes mellitus without complications; J45.909 Unspecified asthma, uncomplicated; Z79.4 Long term (current) use of insulin
CPT/HCPCS: 80053; 81001; 83690; 84703; 85025; 96374; 99284; J2405

== ENCOUNTER 2017-10-26 21:23 | Emergency (ER) | payer MEDICAID ==
[~2017-10-26] VITALS: Ht 157.5 cm; Wt 55.0 kg
[~2017-10-26 21:23] MED LIST changes: +ZOFR8TAB4 SL
[2017-10-26 21:41] VITALS: BP 123/77; PULSE 93; RESP 16; TEMP 99; O2SAT 98
== END 2017-10-26 23:34 | disposition left against medical advice (07) ==
LOC: NED 21:23
DX: R10.9 Unspecified abdominal pain (principal)
CPT/HCPCS: 99281

== ENCOUNTER 2017-11-14 13:08 | Emergency (ER) | payer MEDICAID ==
[~2017-11-14] VITALS: Ht 157.5 cm; Wt 60.0 kg
[2017-11-14 13:14] VITALS: BP 141/86; PULSE 120; RESP 17; TEMP 101; O2SAT 96
[2017-11-14] MEDS ORDERED: NOVORP2 SQ (14:43)
[2017-11-14] MEDS ORDERED: methylPREDNISolone SOD SUCC 125 MG/2 ML VIAL IV PUSH ONE (15:15)
[2017-11-14] MEDS ORDERED: SODIUM CHLORIDE 0.9% FLUSH 10 ML FLUSH IVF PRN (15:15)
[2017-11-14] MEDS ORDERED: SODIUM CHLOR 0.9% 1000 ML INJ 1,000 ML IV ONE ×2 (15:15)
[2017-11-14 15:41] VITALS: O2SAT 97
[2017-11-14 15:42] VITALS: BP 113/69; PULSE 102; RESP 19; TEMP 100.2; O2SAT 97
[2017-11-14] MEDS: RESP: ALBUTEROL 2.5 MG/IPRATROPIUM 0.5 MG NEB (SCH) INH (15:56)
[2017-11-14 15:57] LABS: AUTOMATED NEUTROPHIL # 10.1 TH/MM3 (1.8-7.7); BASOPHIL # 0.1 TH/MM3 (0-0.2); BASOPHIL % 0.7 % (0.0-2.0); EOSINOPHIL # 0.1 TH/MM3 (0-0.4); EOSINOPHIL % 0.4 % (0.0-4.0); HEMATOCRIT 37.5 % (35.0-46.0); HEMOGLOBIN 12.5 GM/DL (11.6-15.3); LYMPH % 17.2 % (9.0-44.0); LYMPHOCYTE # 2.4 TH/MM3 (1.0-4.8); MEAN CELL VOLUME 88.3 FL (80.0-100.0); MEAN CORPUSCULAR HEMOGLOBIN 29.5 PG (27.0-34.0); MEAN CORPUSCULAR HGB CONC 33.4 % (32.0-36.0); MEAN PLATELET VOLUME 8.2 FL (7.0-11.0); MONO % 7.5 % (0.0-8.0); NEUT % 74.2 % (16.0-70.0); PLATELET COUNT 280 TH/MM3 (150-450); RED BLOOD COUNT 4.24 MIL/MM3 (4.00-5.30); RED CELL DISTRIBUTION WIDTH 11.8 % (11.6-17.2); WHITE BLOOD COUNT 13.7 TH/MM3 (4.0-11.0)
[2017-11-14 16:15] LABS: BICARBONATE 22.5 MEQ/L (21.0-32.0); CALCIUM 9.1 MG/DL (8.5-10.1); CREATININE 0.63 MG/DL (0.50-1.00)
--- NOTE | 2017-11-14 16:18 | RADRPT ---
EXAM DATE/TIME: 11/14/2017 15:24 [place] COMPARISON: CHEST SINGLE AP, July 07, 2017, 14:47. INDICATIONS : Shortness of breath for 3 days MEDICAL HISTORY : None. SURGICAL HISTORY : None. ENCOUNTER: Initial ACUITY: 3 days PAIN SCORE: 0/10 LOCATION: Bilateral chest FINDINGS: A single view of the chest demonstrates the lungs to be symmetrically aerated without evidence of mas s, infiltrate or effusion. The cardiomediastinal contours are unremarkable. Osseous structures are intact. CONCLUSION: The lungs are clear. Daniel Edmond MD on November 14, 2017 at 16:16 Board Certified Radiologist. This report was verified electronically.
[2017-11-14] MEDS ORDERED: AZIT250T3 PO (16:23)
--- NOTE | 2017-11-14 16:24 | PD ---
HPI Chief Complaint: GI Complaint Time Seen by Provider: 14:40 Travel History International Travel<30 days: No Contact w/Intl Traveler<30days: No Traveled to known affect area: No History of Present Illness HPI 22-year-old female complains of sore throat and right-sided otalgia. She reports sneezing and coughing up phlegm. She reports a fever 101.3. Occasional shortness of breath is reported. She has a history of asthma. Duration of symptoms 3 days. Tylenol and Motrin were marginally helpful at home. Patient's son had similar symptoms. PFSH Past Medical History Arthritis: No Asthma: Yes Blood Disorders: No Weight (Kg): 3 Anxiety: No Depression: No Heart Rhythm Problems: No Cancer: No Cardiovascular Problems: No High Cholesterol: No Chemotherapy: No Chest Pain: No Congestive Heart Failure: No COPD: No Cerebrovascular Accident: No Developmental Delay: No Diabetes: Yes Patient Takes Glucophage: No Diminished Hearing: No Endocrine: No Genitourinary: No Immune Disorder: No Insomnia: Yes Musculoskeletal: No Neurologic: No Reproductive: No Respiratory: Yes (asthma) Immunizations Current: Yes Radiation Therapy: No Sleep Apnea: No Tetanus Vaccination: < 5 Years Influenza Vaccination: Yes PNEUMOCCOCAL Vaccine (Year): 1 ?: Not LMP: 11/14/17 Menopausal: No : 4 Para: 1 Miscarriage: 3 Ovarian Cysts: Yes Past Surgical History Abdominal Surgery: No AICD: No Arteriovenous Shunt: No Cardiac Surgery: No Section: Yes (11/17/2016) Ear Surgery: No Endocrine Surgery: No Eye Surgery: No Genitourinary Surgery: No Gynecologic Surgery: No 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) Oral Surgery: No Thoracic Surgery: No Other Surgery: Yes (csection) Social History Alcohol Use: No (pt denies) Tobacco Use: No (pt denies ) Substance Use: No (PT DENIES ) Allergies-Medications (Allergen,Severity, Reaction): Coded Allergies: nitrofurantoin (Verified Allergy, Severe, Rash, 11/14/17) coconut (Verified Allergy, Intermediate, Rash, 11/14/17) *MDRO Multi-Drug Resistant Organism (Verified Adverse Reaction, Unknown, ) MRSA PCR Screen POSITIVE - 02/24/2015 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 ESBL+E.Coli (urine) - 07/2015 Reported Meds & Prescriptions Reported Meds & Active Scripts Active Azithromycin 250 Mg Tab 250 Mg PO DIRECTED Take 2 tabs (500 mg) on day 1 then 1 tab daily x 4 days. Reported Novolin R Inj (Insulin Human Regular) 1,000 Unit/10 Ml Vial 10 Units SQ BID Flovent Hfa 10.6 GM Inh (Fluticasone Propionate) 44 Mcg/Act Inh 2 Puff INH DAILY Use daily at the same time. Lantus Inj (Insulin Glargine) 1,000 Unit/10 Ml Vial 15 Units SQ HS Review of Systems Except as stated in HPI: all other systems reviewed are Neg General / Constitutional: No: Fever Physical Exam Narrative GENERAL: 22-year-old female well-nourished well-developed Vital Signs Date Time Temp Pulse Resp B/P (MAP) Pulse Ox O2 Delivery O2 Flow Rate FiO2 11/14/17 15:42 100.2 102 19 113/69 (84) 97 Room Air 11/14/17 15:41 97 Room Air 11/14/17 13:14 101.0 120 17 141/86 (104) 96 SKIN: Warm and dry. HEAD: Atraumatic. Normocephalic. EYES: Pupils equal and round. No scleral icterus. No injection or drainage. ENT: No nasal bleeding or discharge. Mucous membranes pink and moist. Posterior oropharynx is widely patent. There is no peritonsillar abscess. NECK: Trachea midline. No JVD. CARDIOVASCULAR: Tachycardia. Regular rhythm. RESPIRATORY: No accessory muscle use. Clear to auscultation. Breath sounds equal bilaterally. GASTROINTESTINAL: Abdomen soft, non-tender, nondistended. Hepatic and splenic margins not palpable. MUSCULOSKELETAL: Extremities without clubbing, cyanosis, or edema. No obvious deformities. NEUROLOGICAL: Awake and alert. No obvious cranial nerve deficits. Motor grossly within normal limits. Five out of 5 muscle strength in the arms and legs. Normal speech. PSYCHIATRIC: Appropriate mood and affect; insight and judgment normal. Data Data Last Documented VS Vital Signs Date Time Temp Pulse Resp B/P (MAP) Pulse Ox O2 Delivery O2 Flow Rate FiO2 11/14/17 18:20 100 20 111/68 (82) 98 11/14/17 15:42 100.2 Room Air Orders Orders Complete Blood Count With Diff (11/14/17 15:07) Basic Metabolic Panel (Bmp) (11/14/17 15:07) Iv Access Insert/Monitor (11/14/17 15:07) Ecg Monitoring (11/14/17 15:07) Oximetry (11/14/17 15:07) Oxygen Administration (11/14/17 15:07) Chest, Single Ap (11/14/17 15:07) Sodium Chloride 0.9% Flush (Ns Flush) (11/14/17 15:15) Methylprednisolone So Succ Inj (Solumedr (11/14/17 15:15) Albuterol-Ipratropium Neb (Duoneb Neb) (11/14/17 15:15) Sodium Chlor 0.9% 1000 Ml Inj (Ns 1000 M (11/14/17 15:15) Sodium Chlor 0.9% 1000 Ml Inj (Ns 1000 M (11/14/17 15:15) Insulin Human Regular Inj (Novolin R Inj (11/14/17 16:30) Insulin Human Regular Inj (Novolin R Inj (11/14/17 17:15) Ed Discharge Order (11/14/17 17:45) Labs Laboratory Tests Test 11/14/17 15:30 White Blood Count 13.7 TH/MM3 Red Blood Count 4.24 MIL/MM3 Hemoglobin 12.5 GM/DL Hematocrit 37.5 % Mean Corpuscular Volume 88.3 FL Mean Corpuscular Hemoglobin 29.5 PG Mean Corpuscular Hemoglobin Concent 33.4 % Red Cell Distribution Width 11.8 % Platelet Count 280 TH/MM3 Mean Platelet Volume 8.2 FL Neutrophils (%) (Auto) 74.2 % Lymphocytes (%) (Auto) 17.2 % Monocytes (%) (Auto) 7.5 % Eosinophils (%) (Auto) 0.4 % Basophils (%) (Auto) 0.7 % Neutrophils # (Auto) 10.1 TH/MM3 Lymphocytes # (Auto) 2.4 TH/MM3 Monocytes # (Auto) 1.0 TH/MM3 Eosinophils # (Auto) 0.1 TH/MM3 Basophils # (Auto) 0.1 TH/MM3 CBC Comment DIFF FINAL Differential Comment Blood Urea Nitrogen 8 MG/DL Creatinine 0.63 MG/DL Random Glucose 427 MG/DL Calcium Level 9.1 MG/DL Sodium Level 131 MEQ/L Potassium Level 4.6 MEQ/L Chloride Level 97 MEQ/L Carbon Dioxide Level 22.5 MEQ/L Anion Gap 12 MEQ/L Estimat Glomerular Filtration Rate 116 ML/MIN MDM Medical Decision Making Medical Screen Exam Complete: Yes Emergency Medical Condition: Yes Medical Record Reviewed: Yes Differential Diagnosis Influenza, pneumonia, pharyngitis, otitis media Narrative Course CBC & BMP Diagram 11/14/17 15:30 Calcium Level 9.1 Presentation is consistent with bronchitis. There is mild elevation in blood glucose at 450. After 2 L normal saline and 6 units insulin. A second 6 units insulin bolus was administered. If the repeat blood glucoses less than 400 the patient will be suitable for discharge. Diagnosis Primary Impression: Asthma Qualified Codes: J45.909 - Unspecified asthma, uncomplicated Additional Impressions: Upper respiratory infection Qualified Codes: J06.9 - Acute upper respiratory infection, unspecified Hyperglycemia Referrals: Primary Care Physician 2 days Med/Other Pt SpecificInfo: Prescription(s) given Scripts Azithromycin (Azithromycin) 250 Mg Tab 250 MG PO DIRECTED for Infection, #6 TAB 0 Refills Take 2 tabs (500 mg) on day 1 then 1 tab daily x 4 days. Prov: Terrell Randall MD 11/14/17 Disposition: DISCHARGE HOME Condition: Stable Terrell Randall MD Nov 14, 2017 16:24
[2017-11-14] MEDS ORDERED: INSULIN HUMAN REGULAR 1,000 UNITS/10 ML VIAL IV PUSH ONE ×2 (16:30→17:15)
[2017-11-14 18:20] VITALS: BP 111/68
== END 2017-11-14 18:00 | disposition home or self-care (01) ==
LOC: NEPD 13:08
DX: J45.909 Unspecified asthma, uncomplicated (principal); J06.9 Acute upper respiratory infection, unspecified; E11.65 Type 2 diabetes mellitus with hyperglycemia; Z79.4 Long term (current) use of insulin
CPT/HCPCS: 71045; 80048; 85025; 94640; 94664; 96361; 96374; 96375; 99284; J1815; J2930; J7030

== ENCOUNTER 2018-08-01 15:47 | Inpatient (IN) ==
[2018-08-01] MEDS ORDERED: Citric Acid/Sodium Citrate Liq 30 ML UDC ONE (16:21)
[2018-08-01] MEDS ORDERED: ceFAZolin 2 GM Premix Inj 2 GM/50 ML PIGGYBACK IV.SIG PRN (16:27)
[2018-08-01] MEDS ORDERED: Citric Acid/Sodium Citrate Liq 30 ML UDC PO SCH (16:30)
[2018-08-01] MEDS ORDERED: Betamethasone Sod Phos/Acetate Inj 30 MG/5 ML Vial IM STA (16:32)
[2018-08-01 16:40] LABS: Baso # (Auto) 0.1 th/mm3 (0.0-0.2); Baso % (Auto) 0.4 % (0.0-2.0); Eos # (Auto) 0.1 th/mm3 (0.0-0.4); Eos % (Auto) 0.6 % (0.0-4.0); Hematocrit 36.9 % (35.0-46.0); Hemoglobin 12.2 gm/dL (11.6-15.3); Lymph # (Auto) 4.3 th/mm3 (1.0-4.8); Lymph % (Auto) 31.6 % (9.0-44.0); Mean Corpuscular Hemoglobin 27.6 pg (27.0-34.0); Mean Corpuscular Volume 83.7 fL (80.0-100.0); Mean Platelet Volume 9.3 fL (7.0-11.0); Mono # (Auto) 1.1 th/mm3 (0.0-0.9); Mono % (Auto) 8.2 % (0.0-8.0); Neut # (Auto) 8.1 th/mm3 (1.8-7.7); Neut % (Auto) 59.2 % (16.0-70.0); Platelet Count 269 th/mm3 (150-450); Red Blood Count 4.42 mil/mm3 (4.00-5.30); Red Cell Distribution Width 14.5 % (11.6-17.2); White Blood Count 13.6 th/mm3 (4.0-11.0)
--- NOTE | 2018-08-01 16:42 | P.HPOB ---
History of Present Illness Primary Care Physician: No Primary Care Physician care at [facility] Chief Complaint: Nonreactive NST reverse end-diastolic flow History of Present Illness: 23-year-old at 32 weeks and 5 days sent from OB diagnostic for BPP of 2 out of 10 -2 for breathing -2 for tone -2 for movement -2 for nonreactive NST. Polyhydramnios with an ANNALEE of greater than 30 umbilical artery no end-diastolic flow intermittent reversal of flow. care in [facility]. Type I diabetic since age 2-3 per patient's mother. 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 This includes certification that hospital inpatient services are reasonable and necessary and in the case of services not specified as inpatient-only under 42 CFR 419.22(n), that they are appropriately provided as inpatient services in accordance to with the 2-midnight benchmark under 43 CFR 412.3(e) Estimated Total Length of Stay (Days): 3 Plans for Post Hospital Care: Home Review of Systems All other systems reviewed negative except as stated in HPI [facility] - Medical History Medical History: Medical History (Last Updated 07/15/18 @ 20:29 by Cecilio Willett MD) Asthma Diabetes 1.5, managed as type 1 - Travel History History of Recent Travel: No Medications and Allergies Active Medications: Active Medications Betamethasone Acet/Betameth SodPhos ([place] Soluspan Inj) 12 mg IM ONCE STA Stop: 08/01/18 16:33 Citric Acid/Sodium Citrate (Sodium Citrate/Citric Acid Liq) 30 ml PO NAVIGATION TEACHER LADONNA Stop: 08/05/18 16:29 Lactated Ringer's (Lr 1000 Ml Inj) 1,000 mls @ 3,000 mls/hr IV.SIG UNSCH PRN PRN Reason: compromise or epidural Lactated Ringer's (Lr 1000 Ml Inj) 1,000 mls @ 125 mls/hr IV.CONT .Q8H [facility] Cefazolin Sodium/Dextrose (Ancef 2 Gm Premix Inj) 2 gm in 50 mls @ 100 mls/hr IV.SIG NAVIGATION TEACHER PRN PRN Reason: preop Stop: 08/05/18 16:26 Allergies Allergy/AdvReac Type Severity Reaction Status Date / Time nitrofurantoin Allergy Severe Rash Verified 07/15/18 18:33 *MDRO Multi-Drug Resistant AdvReac Unknown Hives Uncoded 07/15/18 18:33 Organism Exam Vital signs: Vital Signs 08/01/18 16:12 Pulse Rate 85 Respiratory Rate 17 Blood Pressure 131/90 - Constitutional no acute distress - Routine HEENT Exam Head: Present: normocephalic ENT: Present: mucous membranes moist - Routine Neck Exam Present: supple - Routine Chest/Breast/Axilla Exam Chest wall: Absent: tenderness Breast: Absent: tenderness - Routine Respiratory Exam Absent: accessory muscle use - Routine Cardiovascular Exam Present: RRR - Routine Abdominal Exam Present: soft (Gravid- heart rate category 2) - Routine Neurological Exam Present: alert, oriented X3 Caprini VTE Risk Assessment Caprini VTE Risk Assessment: No/Low Risk (score <= 1) Caprini Risk Assessment Model: Point Value = 1 Point Value = 2 Point Value = 3 Point Value = 5 Age 41-60 Minor surgery BMI > 25 kg/m2 Swollen legs Varicose veins or History of unexplained or recurrent spontaneous Oral contraceptives or hormone replacement Sepsis (< 1 month) Serious lung disease, including pneumonia (< 1 month) Abnormal pulmonary function Acute myocardial infarction Congestive heart failure (< 1 month) History of inflammatory bowel disease Medical patient at bed rest Age 61-74 Arthroscopic surgery Major open surgery (> 45 min) Laparoscopic surgery (> 45 min) Malignancy Confined to bed (> 72 hours) Immobilizing plaster cast Central venous access Age >= 75 History of VTE Family history of VTE Factor V Leiden Prothrombin [id number] Lupus anticoagulant Anticardiolipin antibodies Elevated serum homocysteine Heparin-induced thrombocytopenia Other congenital or acquired thrombophilia Stroke (< 1 month) Elective arthroplasty Hip, pelvis, or leg fracture Acute spinal cord injury (< 1 month) Prophylaxis Regimen: Total Risk Factor Score Risk Level Prophylaxis Regimen 0-1 Low Early ambulation 2 Moderate Order ONE of the following: *Sequential Compression Device (SCD) *Heparin 5000 units SQ BID 3-4 Higher Order ONE of the following medications: *Heparin 5000 units SQ TID *Enoxaparin/Lovenox 40 mg SQ daily (WT < 150 kg, CrCl > 30 mL/min) *Enoxaparin/Lovenox 30 mg SQ daily (WT < 150 kg, CrCl > 10-29 mL/min) *Enoxaparin/Lovenox 30 mg SQ BID (WT < 150 kg, CrCl > 30 mL/min) AND/OR *Sequential Compression Device (SCD) 5 or more Highest Order ONE of the following medications: *Heparin 5000 units SQ TID (Preferred with Epidurals) *Enoxaparin/Lovenox 40 mg SQ daily (WT < 150 kg, CrCl > 30 mL/min) *Enoxaparin/Lovenox 30 mg SQ daily (WT < 150 kg, CrCl > 10-29 mL/min) *Enoxaparin/Lovenox 30 mg SQ BID (WT < 150 kg, CrCl > 30 mL/min) AND *Sequential Compression Device (SCD) Assessment and Plan - Diagnosis (1) Non-reassuring heart rate or rhythm affecting mother Code(s): O36.8390 - Maternal care for abnormalities of the heart rate or rhythm, unspecified trimester, not applicable or unspecified Status: Acute (2) Type 1 diabetes mellitus affecting in third trimester, antepartum Code(s): O24.013 - Pre-existing type 1 diabetes mellitus, in , third trimester Status: Acute (3) 32 weeks gestation of Code(s): Z3A.32 - 32 weeks gestation of Status: Acute - Plan Extensive discussion with the patient and her mother, at this point with a biophysical of 2 out of 10 delivery is warranted I did not do a pelvic exam however no benefit in prolonging or attempting to try to labor due to suspected severe uteroplacental compromise. Discussed with the patient alternatives benefits complications-patient herself has cerebral palsy-she was made aware her fetus may as a result of delivery of cerebral palsy intraventricular hemorrhage retinopathy of prematurity respiratory distress syndrome necrotizing enterocolitis. In regards to the delivery risk benefits complications including but not limited to risk of injury to any of the maternal organs organs hemorrhage infection morbidity mortality related surgery under anesthesia reoperation risk patient expressed verbal understanding in route to the OR. We will still give her betamethasone which may still provide some benefit and some literatures in spite of the imminent delivery planned
[2018-08-01] MEDS ORDERED: Morphine Sulfate PF Inj 5 MG/10 ML Ampul ONE (16:44)
[2018-08-01] MEDS ORDERED: Oxytocin 30 Units/500ml Premix 30 UNITS/500 ML BAG IV.SIG ONE (17:48)
[2018-08-01 17:51] LABS: Cord Arterial Blood HCO3 18.7
[2018-08-01] MEDS ORDERED: Dextrose 50% in Water 50 ML Vial IV.PUSH PRN (17:51)
--- NOTE | 2018-08-01 18:07 | P.OP ---
- Preoperative Diagnosis (1) Non-reassuring heart rate or rhythm affecting mother (2) 32 weeks gestation of - Postoperative Diagnosis (1) Dehiscence (without extension) of old uterine scar before onset of labor, antepartum condition or complication (2) Short umbilical cord Date of procedure: 07/30/18 Procedure: Repeat low uterine segment transverse section Anesthesia: spinal Surgeon: She Jj MD Video Conference Specialist: Luciana Lorenzo Estimated blood loss (mL): 300 (Amniotic fluid 2.1 L) Operation and Findings: Patient presented from OB diagnostics-biophysical 2 out of 10 absent end- diastolic flow with intermittent reversed diastolic flow. Previous delivery. Counseled for repeat [id number] including but not limited to permanent injury to the bowel, bladder, blood vessels, fetus, ureters, any structures in the abdomen or pelvis. Reoperation risk. Risk of infection and hemorrhage. Anesthesia related risks. Risk of delivery see admitting history and physical. Patient was taken to the OR after receiving spinal analgesia prepped and draped in normal sterile fashion. Timeout performed. Preop antibiotics given. An incision was made through the previous scar with a scalpel carried down to the underlying layer of fascia. Fascia was incised in the midline dissected laterally partially bluntly as well as with curved Mayos. Superior aspect the fascia was grasped with Shira clamps x2 dissected off from the underlying rectus muscle bluntly. Inferior aspect of the fascia was grasped with Shira clamps x2 dissected off from the underlying rectus muscle bluntly. Rectus muscle was with a hemostat. Blunt entrance into the peritoneum with care to avoid the bladder. Bladder blade was placed. Vessel uterine peritoneum was identified bladder flap created. Note however the uterine the lower uterine segment was paper thin less than 1 mm. A small stab incision was made with a scalpel. Extended laterally digitally. Amniotomy copious clear fluid. 2.1 L of amniotic fluid recovered. The vertex was subsequently delivered. Nares and mouth were bulb suctioned. Reduction of nuchal cord x1. Delivery of the remainder of the body. Cord was clamped and cut. handed to awaiting delivery motorcycle driver and NICU team. Apgars weight pending. Cord gases collected. cord blood collected. Placenta was manually removed. Uterus was cleared of all clot and debris. Uterus noted to be boggy subsequently 10 more milliunits of Pitocin was administered as well as uterine massage. Uterus was closed with 1 chromic in a running locked fashion followed by second imbricating Lembert suture. Note that both adnexa noted to be within normal limits. No signs of adhesion or uterine disruption posteriorly. Uterus was subsequently repositioned the pelvic abdominal cavity after paracolic gutters cleared of all clot and debris. The uterus was reevaluated noted to have 2 points of minimal oozing which were ready controlled with Vicryl 0 interrupted fashion at point hemostasis was noted to be adequate and satisfactory. The fascia was identified closed with 1 PDS in a continuous fashion. Subcutaneous bleeding which was minimal controlled Bovie pencil. Please note along the patient's right rectus muscle a [id number] suture was applied to affect hemostasis and observe no more further bleeding or oozing noted. Skin was closed with Monocryl on a Jack needle in its entirety. Patient tolerated procedure well sponge lap needle counts correct x2 patient taken to recovery room in stable condition.
[2018-08-01] MEDS ORDERED: Oxytocin 30 Units/500ml Premix 30 UNITS/500 ML BAG ONE ×2 (18:11→19:02)
[2018-08-01] MEDS ORDERED: Methylergonovine Inj 0.2 MG/ML Ampul ONE (18:38)
[2018-08-01] MEDS ORDERED: Methylergonovine Inj 0.2 MG/ML Ampul IM ONE ×2 (18:40→20:00)
[2018-08-01] MEDS ORDERED: miSOPROStol 200 MCG Tablet ONE (18:42)
[2018-08-01] MEDS ORDERED: miSOPROStol 200 MCG Tablet PO STA (18:44)
--- NOTE | 2018-08-01 18:47 | P.OBGPN ---
Postop day #0 patient is in PACU-MD called for heavier lochia Have gone to evaluate the patient hemodynamically she is stable . Approximately 100 cc noted on the peripads Fundus is firm Urine output is adequate Methergine x1 given Also plan Cytotec series Continue observation
[2018-08-01] MEDS ORDERED: Naloxone Inj 0.4 MG/ML Vial IV.PUSH PRN (21:40)
[2018-08-01] MEDS: Insulin NovoLOG Aspart Correctional Sugar Inj SQ SCH (21:50)
[2018-08-01] MEDS ORDERED: Oxytocin 30 Units/500ml Premix 30 UNITS/500 ML BAG IV.SIG PRN (22:48)
[2018-08-02 06:08] LABS: Baso % (Auto) 0.1 % (0.0-2.0); Hematocrit 31.8 % (35.0-46.0); Hemoglobin 10.5 gm/dL (11.6-15.3); Lymph % (Auto) 14.8 % (9.0-44.0); Mean Corpuscular Hemoglobin 27.2 pg (27.0-34.0); Mean Corpuscular Volume 82.2 fL (80.0-100.0); Mono % (Auto) 7.6 % (0.0-8.0); Neut # (Auto) 10.4 th/mm3 (1.8-7.7); Neut % (Auto) 77.5 % (16.0-70.0); Platelet Count 222 th/mm3 (150-450); Red Blood Count 3.87 mil/mm3 (4.00-5.30); Red Cell Distribution Width 14.1 % (11.6-17.2); White Blood Count 13.5 th/mm3 (4.0-11.0)
[2018-08-02] MEDS: Insulin NovoLOG Aspart Correctional Sugar Inj SQ SCH ×4 (08:00→22:58)
[2018-08-02] MEDS: miSOPROStol 200 MCG Tablet PO SCH ×3 (08:13→18:33)
--- NOTE | 2018-08-02 08:14 | P.PNOB ---
Subjective Post op day: 1 Interval history: Pt seen and examined this morning.[Postoperative day # 1 AFVSS overnight. Incision not draining and healing well. Decreased lochia. Denies dysuria. No breast tenderness. She is feeding the baby via bottle. Appetite good. No nausea or vomiting. Has had BM. Ambulating well. Denies calf pain or shortness of breath. Otherwise, she is doing well this morning and has no other concerns. Objective Vital Signs/I&O: Vital Signs 08/01/18 16:12 08/01/18 16:15 08/01/18 16:43 Temperature 98.2 F Pulse Rate 85 84 Respiratory Rate 17 Blood Pressure 131/90 08/01/18 18:04 08/01/18 18:25 08/01/18 18:34 Temperature 97.4 F L Pulse Rate 68 54 L 61 Respiratory Rate 14 16 16 Blood Pressure 120/74 106/77 115/80 08/01/18 18:55 08/01/18 19:00 08/01/18 19:04 Temperature Pulse Rate 60 64 Respiratory Rate 16 18 Blood Pressure 114/79 113/75 08/01/18 19:25 08/01/18 19:40 08/01/18 19:55 Temperature Pulse Rate 64 65 64 Respiratory Rate 18 18 18 Blood Pressure 130/74 120/82 130/80 08/01/18 20:40 08/01/18 23:00 08/02/18 00:00 Temperature 97.5 F L 98.3 F Pulse Rate 70 67 Respiratory Rate 18 16 18 Blood Pressure 129/83 119/81 08/02/18 00:52 08/02/18 03:56 Temperature 98.1 F Pulse Rate 62 Respiratory Rate 16 18 Blood Pressure 109/70 Intake & Output 08/01/18 08/02/18 08/02/18 18:59 06:59 18:59 Weight 64 kg Other: Weight On Admission 64 kg Result Diagrams: 08/02/18 05:18 Objective Remarks: GENERAL: Well-nourished, well-developed patient. CARDIOVASCULAR: Regular rate and rhythm without murmurs, gallops, or rubs. RESPIRATORY: Breath sounds equal bilaterally. No accessory muscle use. ABDOMEN/GI: Abdomen soft, non-tender, bowel sounds present. Incision: Clean, dry and intact. Fundus: Firm, non-tender at umbilicus. GENITOURINARY: Light bleeding. EXTREMITIES: No cyanosis or edema, non-tender, without signs of DVT. Medications and IVs: Active Medications Dextrose (D50w Vial) 50 ml IV.PUSH UNSCH PRN PRN Reason: PER HYPOGLYCEMIA PROTOCOL Last Admin: 08/01/18 22:09 Dose: 50 ml Diphenhydramine HCl (Benadryl Inj) 25 mg IV.PUSH Q6H PRN PRN Reason: MILD TO MODERATE ITCHING Stop: 08/02/18 21:39 Diphenhydramine HCl (Benadryl) 50 mg PO Q6H PRN PRN Reason: MILD TO MODERATE ITCHING Stop: 08/02/18 21:39 Diphtheria/Pertussis/Tetanus Vacc (Boostrix Vaccine Inj) 0.5 ml IM .ONCE ONE Stop: 08/02/18 16:01 Glucagon (Glucagon Inj) 1 mg OTHER PRN PRN PRN Reason: for Hypoglycemia Protocol Lactated Ringer's (Lr 1000 Ml Inj) 1,000 mls @ 100 mls/hr IV.CONT .Q10H [facility] Stop: 08/02/18 18:47 Last Admin: 08/02/18 01:36 Dose: 100 mls/hr Oxytocin (Pitocin 30 Units/Ns 500 Ml Premix) 30 units in 500 mls @ 100 mls/hr IV.SIG UNSCH PRN PRN Reason: Heavy bleeding Last Admin: 08/01/18 19:11 Dose: 100 mls/hr Insulin Aspart (Novolog Mix 70/30 Inj) 1 units SQ BID@0800,1700 [facility] Insulin Aspart (Novolog Insulin Correctional Sugar Inj) 0 unit SQ ACHS [facility]; Protocol Last Admin: 08/01/18 21:50 Dose: Not Given Measles/Mumps/Rubella Vaccine Live (M-M-R Ii Vaccine Inj) 0.5 ml SQ .ONCE ONE Stop: 08/02/18 16:01 Miscellaneous Information (Misc Nursing Information) 1 each OTHER UNSCH PRN PRN Reason: SEE LABEL COMMENTS Stop: 08/02/18 21:39 Miscellaneous Information (Misc Nursing Information) 1 each OTHER UNSCH PRN PRN Reason: SEE LABEL COMMENTS Stop: 08/02/18 21:39 Misoprostol (Cytotec) 200 mcg PO TID [facility] Last Admin: 08/02/18 08:13 Dose: 200 mcg Naloxone HCl (Narcan Inj) 0.4 mg IV.PUSH UNSCH PRN PRN Reason: SEE LABEL COMMENTS Stop: 08/02/18 21:39 Oxycodone/Acetaminophen (Percocet 5/325 Mg) 1 tab PO Q4H PRN PRN Reason: PAIN SCALE 3 TO 5 Oxycodone/Acetaminophen (Percocet 5/325 Mg) 2 tab PO Q4H PRN PRN Reason: PAIN SCALE 6 TO 10 Last Admin: 08/02/18 08:13 Dose: 2 tab Sodium Chloride (Ns Flush) 2 ml IV.FLUSH BID [facility] Last Admin: 08/01/18 21:50 Dose: Not Given Sodium Chloride (Ns Flush) 2 ml IV.FLUSH PRN PRN PRN Reason: FLUSH AFTER USING IV ACCESS Assessment and Plan - Diagnosis (1) delivery delivered Code(s): O82 - Encounter for delivery without indication Status: Acute (2) Type 1 diabetes Code(s): E10.9 - Type 1 diabetes mellitus without complications Status: Acute Plan: T1D -fasting BG this am 116 -insulin low dose sliding scale -accuchecks -hypoglycemia protocol (3) 32 weeks gestation of Code(s): Z3A.32 - 32 weeks gestation of Status: Acute Plan: 23 y/o female who is POD# 1 s/p repeat CXN due to non-reassuring NST and BPP 2/ 10. -Continue routine care. -Percocet and Motrin PRN pain. -Encouraged OOB. Advised pelvic rest for 6 wks. Will need a f/u appt. in 1-2 wks for incision check. -h/h this am 10.5/31.8 from 12.2/36.9 - cytotec 200 mcg TID due to risk for bleeding -Re: ctrl, she would like to get tubal ligation. -Anticipate discharge tomorrow. sheryl JHAVERI MD
[2018-08-02] MEDS: Insulin Aspart Prot 70/30 1,000 UNITS/10 ML Vial SQ SCH ×2 (09:11→18:41)
--- NOTE | 2018-08-02 10:22 | P.OBGPN ---
OB - Post Op Progress Note Patient Name: Rachele Washington Date of : 89 Patient Status: Inpatient Attending Provider: She Jj Date: 08/02/18 08:14 Initialization Date: 08/02/18 08:14 Subjective Post op day: 1 Interval history: Pt seen and examined this morning.[Postoperative day # 1 AFVSS overnight. Incision not draining and healing well. Decreased lochia. Denies dysuria. No breast tenderness. She is feeding the baby via bottle. Appetite good. No nausea or vomiting. Has had BM. Ambulating well. Denies calf pain or shortness of breath. Otherwise, she is doing well this morning and has no other concerns. Objective Vital Signs/I&O: Vital Signs 08/01/18 16:12 08/01/18 16:15 08/01/18 16:43 Temperature 98.2 F Pulse Rate 85 84 Respiratory Rate 17 Blood Pressure 131/90 08/01/18 18:04 08/01/18 18:25 08/01/18 18:34 Temperature 97.4 F L Pulse Rate 68 54 L 61 Respiratory Rate 14 16 16 Blood Pressure 120/74 106/77 115/80 08/01/18 18:55 08/01/18 19:00 08/01/18 19:04 Temperature Pulse Rate 60 64 Respiratory Rate 16 18 Blood Pressure 114/79 113/75 08/01/18 19:25 08/01/18 19:40 08/01/18 19:55 Temperature Pulse Rate 64 65 64 Respiratory Rate 18 18 18 Blood Pressure 130/74 120/82 130/80 08/01/18 20:40 08/01/18 23:00 08/02/18 00:00 Temperature 97.5 F L 98.3 F Pulse Rate 70 67 Respiratory Rate 18 16 18 Blood Pressure 129/83 119/81 08/02/18 00:52 08/02/18 03:56 Temperature 98.1 F Pulse Rate 62 Respiratory Rate 16 18 Blood Pressure 109/70 Intake & Output 08/01/18 08/02/18 08/02/18 18:59 06:59 18:59 Weight 64 kg Other: Weight On Admission 64 kg Result Diagrams: 08/02/18 05:18 Objective Remarks: GENERAL: Well-nourished, well-developed patient. CARDIOVASCULAR: Regular rate and rhythm without murmurs, gallops, or rubs. RESPIRATORY: Breath sounds equal bilaterally. No accessory muscle use. ABDOMEN/GI: Abdomen soft, non-tender, bowel sounds present. Incision: Clean, dry and intact. Fundus: Firm, non-tender at umbilicus. GENITOURINARY: Light bleeding. EXTREMITIES: No cyanosis or edema, non-tender, without signs of DVT. Medications and IVs: Active Medications Dextrose (D50w Vial) 50 ml IV.PUSH UNSCH PRN PRN Reason: PER HYPOGLYCEMIA PROTOCOL Last Admin: 08/01/18 22:09 Dose: 50 ml Diphenhydramine HCl (Benadryl Inj) 25 mg IV.PUSH Q6H PRN PRN Reason: MILD TO MODERATE ITCHING Stop: 08/02/18 21:39 Diphenhydramine HCl (Benadryl) 50 mg PO Q6H PRN PRN Reason: MILD TO MODERATE ITCHING Stop: 08/02/18 21:39 Diphtheria/Pertussis/Tetanus Vacc (Boostrix Vaccine Inj) 0.5 ml IM .ONCE ONE Stop: 08/02/18 16:01 Glucagon (Glucagon Inj) 1 mg OTHER PRN PRN PRN Reason: for Hypoglycemia Protocol Lactated Ringer's (Lr 1000 Ml Inj) 1,000 mls @ 100 mls/hr IV.CONT .Q10H [facility] Stop: 08/02/18 18:47 Last Admin: 08/02/18 01:36 Dose: 100 mls/hr Oxytocin (Pitocin 30 Units/Ns 500 Ml Premix) 30 units in 500 mls @ 100 mls/hr IV.SIG UNSCH PRN PRN Reason: Heavy bleeding Last Admin: 08/01/18 19:11 Dose: 100 mls/hr Insulin Aspart (Novolog Mix 70/30 Inj) 1 units SQ BID@0800,1700 [facility] Insulin Aspart (Novolog Insulin Correctional Sugar Inj) 0 unit SQ ACHS [facility]; Protocol Last Admin: 08/01/18 21:50 Dose: Not Given Measles/Mumps/Rubella Vaccine Live (M-M-R Ii Vaccine Inj) 0.5 ml SQ .ONCE ONE Stop: 08/02/18 16:01 Miscellaneous Information ([facility] Nursing Information) 1 each OTHER UNSCH PRN PRN Reason: SEE LABEL COMMENTS Stop: 08/02/18 21:39 Miscellaneous Information ([facility] Nursing Information) 1 each OTHER UNSCH PRN PRN Reason: SEE LABEL COMMENTS Stop: 08/02/18 21:39 Misoprostol (Cytotec) 200 mcg PO TID [facility] Last Admin: 08/02/18 08:13 Dose: 200 mcg Naloxone HCl (Narcan Inj) 0.4 mg IV.PUSH UNSCH PRN PRN Reason: SEE LABEL COMMENTS Stop: 08/02/18 21:39 Oxycodone/Acetaminophen (Percocet 5/325 Mg) 1 tab PO Q4H PRN PRN Reason: PAIN SCALE 3 TO 5 Oxycodone/Acetaminophen (Percocet 5/325 Mg) 2 tab PO Q4H PRN PRN Reason: PAIN SCALE 6 TO 10 Last Admin: 08/02/18 08:13 Dose: 2 tab Sodium Chloride (Ns Flush) 2 ml IV.FLUSH BID [facility] Last Admin: 08/01/18 21:50 Dose: Not Given Sodium Chloride (Ns Flush) 2 ml IV.FLUSH PRN PRN PRN Reason: FLUSH AFTER USING IV ACCESS Assessment and Plan - Diagnosis status post delivery Code(s): Z3A.32 - 32 weeks gestation of Status: Acute Plan: 23 y/o female who is POD# 1 s/p repeat CXN due to non-reassuring NST and BPP 2/ 10. -Continue routine care. -Percocet and Motrin PRN pain. -Encouraged OOB. Advised pelvic rest for 6 wks. Will need a f/u appt. in 1-2 wks for incision check. -h/h this am 10.5/31.8 from 12.2/36.9 - cytotec 200 mcg TID due to risk for bleeding -Re: ctrl, she would like to get tubal ligation. -Anticipate discharge tomorrow. sheryl JHAVERI MD (2) Type 1 diabetes Code(s): E10.9 - Type 1 diabetes mellitus without complications Status: Acute Plan: T1D -fasting BG this am 116 -insulin low dose sliding scale -accuchecks -hypoglycemia protocol
[2018-08-02] MEDS ORDERED: Influenza (Quadrivalent) Vaccine 0.5 ML Syringe IM ONE (15:00)
[2018-08-02] MEDS ORDERED: Measles/Mumps/Rubella Vaccine Inj 0.5 ML Vial SQ ONE (16:00)
[2018-08-02] MEDS ORDERED: Diphtheria/Tetanus/Pertussis Vaccine Inj 0.5 ML Syringe IM ONE (16:00)
[2018-08-03] MEDS: Insulin Aspart Prot 70/30 1,000 UNITS/10 ML Vial SQ SCH (08:36)
[2018-08-03] MEDS: miSOPROStol 200 MCG Tablet PO SCH (08:37)
--- NOTE | 2018-08-03 09:02 | P.PNOB ---
Subjective Post op day: 2 Interval history: POD 2. AFVSS. Patient reports she is feeling well. Bleeding is decreasing and pain is well-controlled. She is breast/formula feeding and bonding well with baby while in NICU. Ambulating without difficulties. She is tolerating a diet without nausea or vomiting. She has had a bowel movement. She has passed gas. Denies chest pain, dysuria, shortness of breath, or calf pain. Objective Vital Signs/I&O: Vital Signs 08/02/18 13:00 08/02/18 16:00 08/02/18 22:40 Temperature 98.9 F 98.1 F 97.9 F Pulse Rate 74 61 74 Respiratory Rate 18 18 17 Blood Pressure 116/75 121/75 118/77 08/03/18 08:40 Temperature 98.1 F Pulse Rate 86 Respiratory Rate 16 Blood Pressure 114/76 Result Diagrams: 08/02/18 05:18 Objective Remarks: GENERAL: Well-nourished, well-developed patient. CARDIOVASCULAR: Regular rate and rhythm without murmurs, gallops, or rubs. RESPIRATORY: Breath sounds equal bilaterally. No accessory muscle use. ABDOMEN/GI: Abdomen soft, non-tender, bowel sounds present. Incision: Clean, dry and intact. Fundus: Firm, non-tender at umbilicus. GENITOURINARY: Light to moderate bleeding. EXTREMITIES: No cyanosis or edema, non-tender, without signs of DVT. Medications and IVs: Active Medications Dextrose (D50w Vial) 50 ml IV.PUSH UNSCH PRN PRN Reason: PER HYPOGLYCEMIA PROTOCOL Last Admin: 08/01/18 22:09 Dose: 50 ml Glucagon (Glucagon Inj) 1 mg OTHER PRN PRN PRN Reason: for Hypoglycemia Protocol Oxytocin (Pitocin 30 Units/Ns 500 Ml Premix) 30 units in 500 mls @ 100 mls/hr IV.SIG UNSCH PRN PRN Reason: Heavy bleeding Last Admin: 08/01/18 19:11 Dose: 100 mls/hr Insulin Aspart (Novolog Mix 70/30 Inj) 1 units SQ BID@0800,1700 [facility] Last Admin: 08/03/18 08:36 Dose: 1 units Insulin Aspart (Novolog Insulin Correctional Sugar Inj) 0 unit SQ ACHS [facility]; Protocol Last Admin: 08/02/18 22:58 Dose: 1 unit Misoprostol (Cytotec) 200 mcg PO TID [facility] Last Admin: 08/03/18 08:37 Dose: 200 mcg Oxycodone/Acetaminophen (Percocet 5/325 Mg) 1 tab PO Q4H PRN PRN Reason: PAIN SCALE 3 TO 5 Oxycodone/Acetaminophen (Percocet 5/325 Mg) 2 tab PO Q4H PRN PRN Reason: PAIN SCALE 6 TO 10 Last Admin: 08/03/18 07:37 Dose: 2 tab Sodium Chloride (Ns Flush) 2 ml IV.FLUSH BID [facility] Last Admin: 08/02/18 23:09 Dose: 2 ml Sodium Chloride (Ns Flush) 2 ml IV.FLUSH PRN PRN PRN Reason: FLUSH AFTER USING IV ACCESS Assessment and Plan - Diagnosis (1) 32 weeks gestation of Code(s): Z3A.32 - 32 weeks gestation of Status: Acute Plan: 23 y/o female who is POD# 2 s/p repeat CXN due to non-reassuring NST and BPP . -Continue routine care. -Percocet and Motrin PRN pain. -Encouraged OOB. Advised pelvic rest for 6 wks. Will need a f/u appt. in 1-2 wks for incision check. -cytotec 200 mcg TID until discharge due to risk for bleeding -Re: ctrl, she would like to get tubal ligation. -Anticipate discharge today dw Dr. Gonzalez (2) Type 1 diabetes Code(s): E10.9 - Type 1 diabetes mellitus without complications Status: Acute Plan: T1D -fasting BG this am 129 -insulin low dose sliding scale -accuchecks -hypoglycemia protocol
[2018-08-03] MEDS: Insulin NovoLOG Aspart Correctional Sugar Inj SQ SCH (10:02)
== END 2018-08-03 11:44 | disposition home or self-care (01) ==
LOC: H2E 15:47 → H1EA 20:07
PROVIDERS: ADMIT Obstetrics & Gynecology; ATTEND Obstetrics & Gynecology